=== PATIENT | female | born 1980 | race Caucasian/White ===

== ENCOUNTER 2018-04-14 18:35 | Inpatient (IN) | payer OTHER ==
[~2018-04-14] VITALS: Ht 162.6 cm; Wt 75.7 kg
[2018-04-14 18:35] VITALS: BP 148/75
[~2018-04-14 18:35] MED LIST: FLUO40CA6 PO; KEP500 PO; LORA-476 PO; PRAV40TA1 PO
--- NOTE | 2018-04-14 18:35 | NUR ---
PATIENT BIBA. PT IS CHRONCHI TRACH TO VENT. PLACED PATIENT ON SAME SETTINGS. SETTINGS CHARTED. PT IS TRACHED WITH PORTEX 7. TRACH IS IN PLACE AND SECURED. PT HR IS ELEVATED 168 SPO2 97%.. NO SOB OR DISTRESS NOTED. VENT CONNECTED TO RED OUTLET. ALARMS AUDIBLE. WILL CONTINUE TO MONITOR.
--- NOTE | 2018-04-14 19:06 | NUR ---
BIB [place] [facility] [place] PT WAS HAVING SOB [place] [facility] HX CEREBRAL PALSY ANC LEFT SIDE CVA. PT IS A&OX4. EYES OPEN AND CAN VERBALLY COMMUNICATED NEEDS WITH LIMITATION. PT TACHY UPON 19:06 ED EVALUATION. PT CAME ON VENT. NURSING AND RESPIRATORY AT BEDSIDE. ER MD AWARE. CONTINUE TO MONITOR.
[2018-04-14] MEDS ORDERED: ACETAMINOPHEN 160 MG/5 ML UDC ONE (19:44)
[2018-04-14] MEDS ORDERED: ACETAMINOPHEN 650 MG SUPP RC ONE ×2 (20:09→21:25)
--- NOTE | 2018-04-14 21:09 | NUR ---
ABG DONE WITH NO INCIDENT. RESULTS GIVEN TO MD LOPEZ.
[2018-04-14 21:16] LABS: ANION GAP 12.1 (8-16); POTASSIUM 4.1 mmol/L (3.5-5.1)
[2018-04-14 21:17] LABS: TOTAL BILIRUBIN 0.3 mg/dL (0.0-1.0)
[2018-04-14 21:48] LABS: BASOPHILS % (AUTO) 0.2 % (0.0-2.0); HEMOGLOBIN 12.4 g/dL (12.0-16.0); LYMPHOCYTES # (AUTO) 1.3 K/uL (2.5-16.5); LYMPHOCYTES % (AUTO) 7.8 % (20.5-51.1); MEAN CORPUSCULAR HEMOGLOBIN 26 pg (27-31); MEAN CORPUSCULAR HGB CONC 32 g/dL (33-37); MONOCYTES # (AUTO) 1.4 K/uL (0.8-1.0); MONOCYTES % (AUTO) 8.9 % (1.7-9.3); NEUTROPHILS # (AUTO) 13.5 K/uL (1.8-7.7); NEUTROPHILS % (AUTO) 83.1 % (42.2-75.2); PLATELET COUNT (AUTO) 389 K/uL (140-450); RED BLOOD CELL COUNT(AUTO) 4.75 MIL/uL (4.20-5.40); RED CELL DISTRIBUTION WIDTH 15.8 % (11.6-13.7); WHITE BLOOD COUNT (AUTO) 16.3 K/uL (4.8-10.8)
[2018-04-14] MEDS ORDERED: NACL 0.9% 1,000 ML IV ONE (21:55)
[2018-04-14 21:58] LABS: PROTHROMBIN TIME 11.6 secs (10.8-13.4)
[2018-04-14] MEDS ORDERED: KEP500 PO (22:00)
[2018-04-14] MEDS ORDERED: TRAM50TA1 PO (22:00)
[2018-04-14] MEDS ORDERED: POTA10TE30 GT (22:00)
[2018-04-14] MEDS ORDERED: TYL650S RC (22:00)
[2018-04-14] MEDS ORDERED: OSC500 GT (22:00)
[2018-04-14] MEDS ORDERED: ACET-2619 PO (22:00)
[2018-04-14] MEDS ORDERED: ASCO500T45 PO (22:00)
[2018-04-14] MEDS ORDERED: FAMO-90 GT (22:00)
[2018-04-14] MEDS ORDERED: HYDR-5122 GT (22:00)
[2018-04-14] MEDS ORDERED: SACC250C10 PO (22:00)
[2018-04-14] MEDS ORDERED: DEXT1LOZ MM (22:00)
--- NOTE | 2018-04-14 22:16 | NUR ---
PATIENT HARD STICK, ATTEMPTS. PATIENT UNABLE TO PROVIDE URINE, STRAIGHT CATH ATTEMPTED, NO URINE COLLECTED.
--- NOTE | 2018-04-14 22:40 | NUR ---
SPUTUM SAMPLE COLLECTED AND SENT TO LAB.
--- NOTE | 2018-04-14 22:45 | NUR ---
VENT CHECK. NO SOB OR DISTRESS NOTED. PT ASKED FOR SUCTIONING. SXN'D PT. WILL CONTINUE TO MONITOR.
--- NOTE | 2018-04-14 23:10 | NUR ---
PICTURES TAKEN OF ANUS/RECTUM. AROUND RECTUM PIN-POINT OPEN AREAS WITH SCANT CONTROLLED BLEEDING. AREA BLANCHABLE. PAINFUL WHEN CLEANED. VSS. ER MD. AWARE. CONTINUE TO MONITOR.
[2018-04-14 23:48] LABS: APPEARANCE,URINE CLOUDY (CLEAR); COLOR,URINE YELLOW (YELLOW); UGLUCOSE NEGATIVE (NEGATIVE)
[2018-04-14 23:49] LABS: BILIRUBIN,URINE NEGATIVE (NEGATIVE); BLOOD, URINE 1+ (NEGATIVE); LEUKOCYTE ESTERASE ,URINE 3+ (NEGATIVE); NITRITE, URINE POSITIVE (NEGATIVE)
[2018-04-14 23:51] LABS: RBC,URINE 11-20 (MOD) /HPF (0-5); WBC,URINE TOO MANY TO COUNT /HPF (0-5)
[2018-04-15] MEDS ORDERED: MORPHINE SULFATE 4 MG/ML SYR IVP ONE (00:05)
[2018-04-15] MEDS ORDERED: NACL 0.9% 1,000 ML IV ONE (00:30)
[2018-04-15] MEDS ORDERED: MEROPENEM 1,000 MG in NACL 0.9% 100 ML IV ONE (00:30)
[2018-04-15] MEDS: NACL 0.9% 1,000 ML IV SCH ×2 (00:33→13:53)
[2018-04-15] MEDS ORDERED: ONDANSETRON 4 MG/2 ML VIAL IVP PRN (00:35)
[2018-04-15] MEDS ORDERED: ALBUTEROL 0.083% 2.5 MG/3 ML NEBU INH PRN (00:35)
[2018-04-15] MEDS ORDERED: ACETAMINOPHEN 325 MG TAB PO PRN (00:35)
[2018-04-15] MEDS ORDERED: BENZOCAINE/MENTHOL 1 LOZ MM PRN (00:40)
--- NOTE | 2018-04-15 00:58 | NUR ---
RN CALLED RT TO SUCTION PATIENT. PT IS CLEAR. PEAK PRESSURE GOES OFF BECAUSE PATIENT IS SHAKING. RN AWARE OF PATIENT SHAKING. NO SOB OR DISTRESS NOTED. SPO2 98-100%. DECREASED FIO2 TO 28%. WILL CONTINUE TO MONITOR.
[2018-04-15] MEDS ORDERED: MEROPENEM 1,000 MG VIAL IV ONE (00:59)
[2018-04-15] MEDS: ALBUTEROL 0.083% 2.5 MG/3 ML NEBU INH SCH ×4 (01:00→19:09)
[2018-04-15] MEDS: IPRATROPIUM 0.02% 0.5 MG/2.5 ML NEBU INH SCH ×4 (01:00→19:09)
--- NOTE | 2018-04-15 01:15 | NUR ---
Pt report given to ZEHRA RASHEED. Transfer of care at this time.
--- NOTE | 2018-04-15 01:30 | NUR ---
TRANSFERRED PT FROM ER TO TELE WITH HELP OF RT LARIOS WITH NO INCIDENT. TRACH IS IN PLACE AND SECURED. VENT IS CONNECTED TO RED OUTLET. ALARMS AUDIBLE. AMBU BAG AT BEDSIDE. WILL CONTINUE TO MONITOR.
--- NOTE | 2018-04-15 01:52 | NUR ---
HHN TX NOT GIVEN BECAUSE PT HR IS 162. RN AWARE. PT ON CONTINUOS PULSE OX. WILL CONTINUE TO MONITOR.
--- NOTE | 2018-04-15 02:00 | NUR ---
PT TRANSFERRED TO BED B ROOM 122. REPORT GIVEN BY ER NURSE. PT NOSE SWABBED FOR MRSA, V/S FOLLOWS T 103 P 57 R 18 B/P 02 99 WITH ALL VENT SETTINGS. PT GIVEN TYLENOL FOR INCREASED TEMP. MORPHINE WAS DRAWN UP B/C PT C/O OF GENERALIZED PAIN. ORDERED MORPHINE DRAWN UP. EMAR WAS RECHECKED BEFORE ADMINISTRATION. PT HAD MORPHINE AROUND 0000. MORPHINE HELD. MORPHINE WASTED SUMMER P. RN NIGHTSHIFT NURSE WITNESSED MORPHINE BEING WASTED. GT SITE ATTEMPTED FLUSH AND WAS CLOGGED. GT SITE WAS NOTED LEAKING DR BURGESS ENGRAVER [employer] WAS CALLED DUE TO PT HEART RATE AND CLOGGED GT SITE.
[2018-04-15] MEDS: MORPHINE SULFATE 4 MG/ML SYR IVP PRN ×2 (02:03→15:44)
[2018-04-15] MEDS: ACETAMINOPHEN 325 MG TAB GT PRN ×3 (02:10→20:50)
[2018-04-15] MEDS ORDERED: DILTIAZEM 25 MG/5 ML VIAL IVP PRN (02:30)
--- NOTE | 2018-04-15 02:30 | NUR ---
HR IN 160'S BP 145/61, TEMP 103 F R/T STATED HR HAS BEEN IN THE 160'S FOR 8 HOURS. ATTEMPTED TO GIVE ACETAMINOPHEN VIA G-TUBE, RN ZEHRA STATED G-TUBE STOMA IS LEAKING WATER WHEN MEDICATION IS BEING ADMINISTERED, CALLED DR BARLOW, CALL BACK FROM DR BURGESS, ORDERS FOR CARDIZEM 20 MG IVP Q4H PRN FOR HR ABOVE 100, ATIVAN 1 MG Q8H FOR ANXIETY, AND CT SCAN OF THE ABDOMEN BECAUSE G-TUBE IS LEAKING. WILL PUT IN ORDERS, CALLED PHARMACY TO VERIFY MEDICATIONS. CALLED SAS ANALYST TO ADMINISTER CARDIZEM DUE TO DOSE 20 MG. CHARGE NURSE ZEHRA MACEDO.
[2018-04-15] MEDS ORDERED: DILTIAZEM 25 MG/5 ML VIAL IVP ONE (02:45)
--- NOTE | 2018-04-15 02:45 | NUR ---
CARDIZEM WAS GIVEN BY SERVICE LOSS CONTROL CONSULTANT AT THIS TIME.
--- NOTE | 2018-04-15 03:35 | NUR ---
TOOK PT TO CT SCAN WITH RT RIC AND KATHYA SHAHID WITH NO INCIDENT. PT BACK ON VENT. NO SOB OR DISTRESS NOTED. VENT CHECK DONE. WILL CONTINUE TO MONITOR.
--- NOTE | 2018-04-15 03:45 | NUR ---
RETURNED BACK FROM CT SCAN PT TRANSFERRED BACK TO BED B RM 122 BY RT AND RN. HOB UP 45% ALL FALLS AND ASPIRATIONS PRECAUTIONS IN PLACE. V/S RETAKEN T 100.2 P 154 R 16 B/P 133/63 02 99% ON VENT SETTINGS.
[2018-04-15] MEDS: MEROPENEM 1,000 MG in NACL 0.9% 100 ML IV SCH ×3 (05:00→20:51)
[2018-04-15 05:33] VITALS: BP 141/66
--- NOTE | 2018-04-15 06:00 | NUR ---
MERREM ORDERED AND HUNG ORDERED RATE OF 200MLS/HR.
[2018-04-15] MEDS ORDERED: MEROPENEM 500 MG VIAL IV ONE (06:36)
--- NOTE | 2018-04-15 06:52 | NUR ---
RECEIVED PT ON DOCUMENTED SETTINGS, ALARMS ARE ON AND AUDIBLE, PTS TRACH PORTEX 7 IS SECURE, BS RHONCI SX SMALL WHITE HHN GVIEN I\L WITH 2.5MG ALBUTEROL AND 0.5 MG ATROVENT NO SOB NOTED, VENT PLUGGED INTO RED OUTLET, BMV HOB, CONT. POX IN PLACE
--- NOTE | 2018-04-15 07:30 | NUR ---
REPORT GIVEN TO CORI RASHEED DAYSHIFT NURSE, FOR CONTINUITY OF CARE, PT IN STABLE CONDITION.
--- NOTE | 2018-04-15 07:31 | NUR ---
REPORT RECEIVED FROM OXIDATION ENGINEER NURSE, PT SLEEPING QUIETLY IN NAD, RESP EVEN UNLABORED TRACH TO VENT, APPEARS IN NO PAIN, SKIN WARM DRY COLOR WNL, POC REVIEWED, ALL SAFETY MEASURES IN PLACE, WILL CONTINUE TO MONITOR.
--- NOTE | 2018-04-15 07:58 | NUR ---
PATIENT HAS BEEN SCREENED AND CATEGORIZED HIGH NUTRITION RISK. PATIENT WILL BE SEEN WITHIN 1-2 DAYS OF ADMISSION. 04/15/18-04/16/[address]
[2018-04-15 08:00] VITALS: BP 113/55
[2018-04-15] MEDS: LACTOBACILLUS RHAMNOSUS GG 1 EACH CAP PO SCH ×3 (08:45→17:28)
[2018-04-15] MEDS: levETIRAcetam 500 MG TAB GT SCH ×2 (08:45→20:49)
[2018-04-15] MEDS: FAMOTIDINE 20 MG TAB GT SCH ×2 (08:45→20:50)
[2018-04-15] MEDS: CALCIUM CARBONATE 500 MG TAB GT SCH ×2 (08:45→20:50)
[2018-04-15] MEDS ORDERED: ASCORBIC ACID 500 MG TAB GT SCH (09:00)
[2018-04-15] MEDS ORDERED: POTASSIUM CHLORIDE 10 MEQ TABER PO SCH (09:00)
[2018-04-15] MEDS ORDERED: ENOXAPARIN 40 MG/0.4 ML SYR SUBQ SCH (09:00)
--- NOTE | 2018-04-15 09:05 | NUR ---
GT AREA WITH REDNESS, SMALL LEAKING, CLEANED WITH NS, PAT DRY, GT GAUZE PLACED, GT FLUSHES WELL, RESIDUAL 10ML, AM MEDS GIVEN, PT DAGOBERTO WELL, PERICARE DONE, PADS CHANGED, WILL CONTINUE TO MONITOR.
--- NOTE | 2018-04-15 10:35 | NUR ---
BED BATH GIVEN, PERICARE DONE, POSITION CHANGED, PT DAGOBERTO WELL, LARGE BUMP NOTED ON LEFT UPPER ARM, PT C/O PAIN, PT HOLDING LEFT ARM, WILL NOTIFY MD, PT'S MOTHER AT BEDSIDE.
[2018-04-15 12:00] VITALS: BP 114/61
--- NOTE | 2018-04-15 12:15 | NUR ---
24G PIV NOT FLUSHING WELL, SITE SLIGHTLY SWALLEN PT C/O PAIN, NEW IV STARTED TO RIGHT HAND, PT DAGOBERTO WELL, IV ANTIBIOTIC STARTED, PER ORDER, PT FEELS HOT TO TOUCH, TEMP 100.8 AXILA, WILL GIVE TYLENOL
--- NOTE | 2018-04-15 12:32 | NUR ---
TYLENOL GIVEN FOR FEVER 100.8
--- NOTE | 2018-04-15 12:47 | NUR ---
04/15/18 RD INITIAL ASSESSMENT COMPLETED PLEASE REFER TO NUTRITION ASSESSMENT UNDER CARE ACTIVITY FOR ESTIMATED NUTRITIONAL NEEDS. 1. CONTINUE NPO UNTIL MEDICALLY APPROPRIATE TO BEGIN NUTRITION 2. WHEN/IF PATIENT MEDICALLY STABLE TO BEGIN NUTRITION, RECOMMEND ADVANCE DIET TO VITAL AF 1.2 @ 45 ML/HR - THIS WILL PROVIDE 1296 KCALS (100% ESTIMATED ENERGY NEEDS), AND 81 G PROTEIN (99% ESTIMATED PROTEIN NEEDS). 3. RECOMMEND FLUSH [address] TO FOLLOW-UP 2-3 DAYS, HIGH RISK JUNI LANDRY RD
--- NOTE | 2018-04-15 12:53 | NUR ---
DR BURGESS AT BEDSIDE.
[2018-04-15] MEDS ORDERED: Z-GUARD PASTE TP PRN (13:15)
--- NOTE | 2018-04-15 13:55 | NUR ---
Supervisor Records Change Note: Miguel Rodríguez from [facility] , patient is on a 7 day bed hold and her brother Vargas Redman is patient's health care decision maker.
--- NOTE | 2018-04-15 14:08 | NUR ---
PT RESTING QUIETLY IN NAD, RESP EVEN UNLABORED, FEVER DOWN, 99.0.
--- NOTE | 2018-04-15 15:44 | NUR ---
PT C/O GENERALIZED BODY PAIN, MORPHINE GIVEN, GT FEED STARTED.
[2018-04-15 16:00] VITALS: BP 117/68
[2018-04-15] MEDS ORDERED: VANCOMYCIN PER PHARMACY MC PRN (16:25)
[2018-04-15] MEDS ORDERED: DEXTROSE 50% 50 ML SYR IVP PRN (16:55)
--- NOTE | 2018-04-15 17:25 | NUR ---
DR CONKLIN AT BEDSIDE.
[2018-04-15] MEDS: VANCOMYCIN 1GM/DEXT 5% PREMIX 200 ML IV SCH (17:31)
--- NOTE | 2018-04-15 18:10 | NUR ---
FLU SWAB SENT
--- NOTE | 2018-04-15 19:11 | NUR ---
PER LAB BLOOD CULTURE POSITIVE FOR GRAM NEGATIVE RODS, DR GARCIA PATTERN ILLUSTRATOR FOR DR BURGESS PAGED AT THIS TIME.
[2018-04-15] MEDS ORDERED: diphenhydrAMINE 50 MG/ML VIAL IVP ONE (19:25)
--- NOTE | 2018-04-15 19:25 | NUR ---
PT WITH RED FACE AND C/O ITCHING, ALSO C/O FEELING ANXIOUS, RT AT BEDSIDE FOR NEB TREATMENT.
--- NOTE | 2018-04-15 19:30 | NUR ---
DR GARCIA CALLED BACK, REPORTED BLOOD CULTURE RESULT, ALSO NOTIFIED OF RED FACE AND ITCHING 2HRS AFTER VANCO DOSE, ORDER FOR BENADRYL RECIEVED
[2018-04-15] MEDS: LORazepam 2 MG/ML VIAL IVP PRN (19:38)
[2018-04-15] MEDS ORDERED: diphenhydrAMINE 50 MG/ML VIAL ONE (19:40)
--- NOTE | 2018-04-15 19:43 | NUR ---
BENADRYL GIVEN PER ORDER. Addendum: 04/15/18 at 1947 by Adenike Rogers RN BENADRYL 25MG IVP GIVEN AT THIS TIME
--- NOTE | 2018-04-15 19:47 | NUR ---
REPORT GIVEN TO SUSTAINMENT LOGISTICS ANALYST NURSE.
--- NOTE | 2018-04-15 19:50 | NUR ---
RECEIVED PT FROM TERRENCE RN PT HOB 30 DEGREE TRACH TO VENT DEPENDENT FIO2 28% TV 450 RESP RATE 16 PEEP 5 NOT SOB NOTED RESP THERAPY AT BED SIDE ASSISTING THE PTIV ON RT HAND INFUSING WELL, G TUBE 15 ML RESIDUAL REDNESS AROUND G TUBE INSERTION, PT REPOSITIONED INITIAL ASSESSMENT DONE
[2018-04-15 20:00] VITALS: BP 110/70
--- NOTE | 2018-04-15 20:00 | NUR ---
PT HAS FEWVER COOL MEASURES APPLY AND TYLENOL GIVEN ORDER PT WILL BE MONITORING
[2018-04-15] MEDS: ENOXAPARIN 100 MG/ML SYR SUBQ SCH (20:52)
[2018-04-15] MEDS: BLOOD GLUCOSE MONITORING 1 DEV DEV FS SCH (21:20)
[2018-04-15] MEDS: INSULIN LISPRO SLIDING SCALE 100 UNITS/ML VIAL SUBQ PRN (21:21)
--- NOTE | 2018-04-15 21:30 | NUR ---
BLOOD SUGAR TEST 178 COVERAGE WITH 2 UNITS HUMALOG SUBQ FOLLOWING PROTOCOL
[2018-04-16] VITALS: BP 114/73
--- NOTE | 2018-04-16 | NUR ---
PT HOB 30 DEGREE ORAL CARE GIVEN WITH VAP KIT NOT DISTESS NOTED NOT FEVER NOTED REPOSITIONED Q2H
[2018-04-16] MEDS: IPRATROPIUM 0.02% 0.5 MG/2.5 ML NEBU INH SCH ×4 (01:31→19:18)
[2018-04-16] MEDS: ALBUTEROL 0.083% 2.5 MG/3 ML NEBU INH SCH ×4 (01:31→19:18)
--- NOTE | 2018-04-16 02:55 | NUR ---
PT HAS BEEN MONITORING CLOSE ST ON CARDIAC M;NITORING NOT DISTRESS NOTED NOT FEVER NOTED
[2018-04-16] MEDS: NACL 0.9% 1,000 ML IV SCH ×2 (03:13→11:53)
[2018-04-16] MEDS: LORazepam 2 MG/ML VIAL IVP PRN (03:33)
[2018-04-16 04:00] VITALS: BP 121/62
--- NOTE | 2018-04-16 04:00 | NUR ---
SPONGE BATH GIVEN LINEN CHANGED HOB [address] TRACH TO VENT REMAIN SAME SETTING NOT SOB NOTED
[2018-04-16] MEDS: VANCOMYCIN 1GM/DEXT 5% PREMIX 200 ML IV SCH ×2 (04:59→17:46)
[2018-04-16] MEDS: MEROPENEM 1,000 MG in NACL 0.9% 100 ML IV SCH ×3 (05:00→20:17)
[2018-04-16] MEDS: BLOOD GLUCOSE MONITORING 1 DEV DEV FS SCH ×4 (05:53→20:38)
[2018-04-16] MEDS: INSULIN LISPRO SLIDING SCALE 100 UNITS/ML VIAL SUBQ PRN ×4 (05:58→20:24)
--- NOTE | 2018-04-16 06:00 | NUR ---
BLOOD SUGAR TEST 215 COVERAGE WITH 4 UNITS HUMALOG SUBQ FOLLOW PROTOCOL
[2018-04-16 06:20] LABS: BASOPHILS % (AUTO) 0.3 % (0.0-2.0); EOSINOPHILS # (AUTO) 0.1 K/uL (0-0.4); EOSINOPHILS % (AUTO) 0.9 % (0.0-4.0); HEMATOCRIT 28.8 % (36-48); HEMOGLOBIN 9.4 g/dL (12.0-16.0); LYMPHOCYTES # (AUTO) 1.1 K/uL (2.5-16.5); LYMPHOCYTES % (AUTO) 11.4 % (20.5-51.1); MEAN CORPUSCULAR HEMOGLOBIN 26 pg (27-31); MEAN CORPUSCULAR HGB CONC 33 g/dL (33-37); MEAN CORPUSCULAR VOLUME 80.6 fL (80-94); MONOCYTES % (AUTO) 10.6 % (1.7-9.3); NEUTROPHILS # (AUTO) 7.3 K/uL (1.8-7.7); NEUTROPHILS % (AUTO) 76.8 % (42.2-75.2); PLATELET COUNT (AUTO) 265 K/uL (140-450); RED BLOOD CELL COUNT(AUTO) 3.57 MIL/uL (4.20-5.40); RED CELL DISTRIBUTION WIDTH 15.7 % (11.6-13.7); WHITE BLOOD COUNT (AUTO) 9.5 K/uL (4.8-10.8)
[2018-04-16 06:51] LABS: ALBUMIN 2.1 g/dL (3.4-5.0); ANION GAP 12.7 (8-16); CARBON DIOXIDE 21.1 mmol/L (21-32); CREATININE 0.8 mg/dL (0.6-1.3); TOTAL BILIRUBIN 0.3 mg/dL (0.0-1.0)
[2018-04-16 06:53] LABS: POTASSIUM 2.8 mmol/L (3.5-5.1)
--- NOTE | 2018-04-16 07:32 | NUR ---
RECEIVED BEDSIDE REPORT FROM OPHTHALMIC MEDICAL ASSISTANT RN. PT IN STABLE CONDITION. APHASIC BUT MOUTHS NEEDS. ABLE TO FOLLOW COMMANDS. HOB 30 DEGREE, CHRONIC TRACH TO VENT. VENT SETTINGS FIO2 28%, VT 450, RESP RATE 16, PEEP 5 CM H2O, FLOW 35 L/MIN. RESPIRATIONS EVEN AND UNLABORED. DENIES PAIN AND DISCOMFORT. EXCORIATION AROUND RECTUM. REDNESS UNDER BILATERAL BREASTS. SKIN OTHERWISE INTACT. BILATERAL FOOT DROP, PILLOWS PLACE UNDER BILATERAL FEET. G-TUBE IN PLACE, RUNNING VITAL AF 1.2 CONTINUOUS AT 45 ML/HR. GASTRIC RESIDUAL 20 ML. PT IS INCONTINENT. IV SITE PATENT AND ASYMPTOMATIC, INFUSING IVF PER MD ORDERS. FALL, ASPIRATION, SEIZURE PRECAUTIONS IN PLACE. ALL OTHER PRECAUTIONS IN PLACE, WILL CONTINUE TO MONITOR.
--- NOTE | 2018-04-16 07:43 | NUR ---
DR BURGESS CALLED BACK FOR CRITICAL MICHAEL K=2.8 AND ORDERS TO FOLLOW
[2018-04-16] MEDS ORDERED: ACETAMINOPHEN 650 MG/20.3 ML UDC GT PRN (07:46)
--- NOTE | 2018-04-16 07:55 | NUR ---
RECEIVED ON A GE CARESCAPE R860 VENTILATOR PLUGGED INOT RED OUTLET TOLERATING WELL WITHOUT ADVERSE REACTIONS NOTED TO A PORTEX DCT #7 AIRWAY SECURED WITH A VARUN TRACH TIE CUFF PRESSURE CHECKED NOTED MAIMO RADICAL-7 CONTINUOUS PULSE OXIMETER AT [facility] ON AND FUNCTIONING WELL LOW SATURATION ALARM SET AT 92% LOC QUIET EASILY AWAKENS BREATH SOUNDS RHONCHI BILATERAL WITH GOOD CHEST RISE DEEP TRACHEAL SUCTION FOR MODERATE THICK YELLOW SECRETIONS AIRWAY PATENT
[2018-04-16 08:00] VITALS: BP 104/54
[2018-04-16] MEDS ORDERED: POTASSIUM CHLORIDE 20% 40 MEQ/15 ML UDC GT SCH (08:00)
--- NOTE | 2018-04-16 08:42 | NUR ---
RESTING COMFORTABLY NO INDICATION OF PULMONARY DISTRESS AT THIS TIME GOOD CHEST RISE
[2018-04-16] MEDS: POTASSIUM CHLORIDE 20% 40 MEQ/15 ML UDC GT SCH (09:18)
[2018-04-16] MEDS: ASCORBIC ACID 500 MG/5 ML ORASYR GT SCH (09:18)
[2018-04-16] MEDS: ENOXAPARIN 100 MG/ML SYR SUBQ SCH ×2 (09:26→20:21)
[2018-04-16] MEDS: levETIRAcetam 100 MG/ML ORASYR GT SCH ×2 (09:27→20:16)
[2018-04-16] MEDS: FAMOTIDINE 20 MG TAB GT SCH ×2 (09:28→20:16)
[2018-04-16] MEDS: CALCIUM CARBONATE 500 MG TAB GT SCH ×2 (09:28→20:16)
[2018-04-16] MEDS: LACTOBACILLUS RHAMNOSUS GG 1 EACH CAP PO SCH (09:28)
--- NOTE | 2018-04-16 09:36 | NUR ---
HEAD SAWYER AUTOMATIC GRACE HAS SEEN PT AND PERFORMED WOUND CARE. SCHEDULED MEDICATIONS ADMINISTERED PER MD ORDERS. PT IN STABLE CONDITION, NO C/O PAIN OR DISCOMFORT.
--- NOTE | 2018-04-16 10:00 | NUR ---
WOUND CARE EVALUATION NOTE: REASON FOR EVALUATION: LOW LISA SCALE SKIN ASSESSMENT DONE WITH PRIMARY RN AT 9:30 AM WITH THIS 37Y/O FEMALE PT ADMITTED TO [facility] WITH INITIAL DX OF SOB. PAST MEDICAL HX INCLUDES CRF ON TRACH TO VENT, CHRONIC GT, AND HX OF CVA . ALL ABOVE INFORMATION OBTAINED FROM ADMISSION H&P. PT IS AWAKE. HAS GOOD EYE CONTACT. SKIN IS WARM AND DRY, BLE GOOD HAIR GROWTH, BILATERAL DORSAL PEDAL PULSES PRESENT AND NORMAL. CAPILLARY REFILLED < 2 SEC. X 10 TOES. INCONTINENT OF BOWEL AND BLADDER. PLAN OF CARE DISCUSSED WITH PRIMARY RN AND PT. INTEGUMENTARY: -TRACH SITE LINDA STOMA SKIN DRY AND CLEAN. SKIN INTACT. - GT SITE LINDA STOMA SKIN DRY AND CLEAN. SKIN INTACT. -INTERTRIGO TO BREAST FOLDS REDNESS -INCONTINENT ASSOCIATE DERMATITIS (IAD) TO: B/L GROINS EXTENDED TO PERINEUM -IAD TO RIGHT AND LEFT INNER BUTTOCKS EXTENDED TO PERIANAL MULTIPLE SMALL PARTIAL THICKNESS SKIN EROSIONS TO PERIANAL, WOUND BED IS PINK, CLEAN AND MOIST. NO ODOR. -OLD HEALED SCAR TO SACROCOCCYX RECOMMENDATIONS: -KEEP SKIN DRY AND CLEAN AT ALL TIMES, PLEASE CHECK Q2H AND PRN FOR INCONTINENCY OF BOWEL AND BLADDER. -APPLY INTER DRY CLOTH TO BREASTS FOLDS INTERTRIGO Q7 DAYS AND PRN IF SOILING -APPLY Z-GUARD TO: B/L GROINS EXTENDED TO PERINEUM AND RIGHT AND LEFT INNER BUTTOCKS EXTENDED TO PERIANAL BID AND PRN IF SOILING -APPLY HEEL RAISER TO RIGHT HEEL AT ALL TIMES -OFFLOAD BILATERAL HEELS BY PLACING PILLOWS UNDER CALVES UNLESS OTHERWISE CONTRAINDICATED -PRESSURE REDISTRIBUTION SURFACE THERAPY -TURN AND REPOSITION Q2H, OFFLOAD SACRALCOCCYX BY TURNING RIGHT AND LEFT -CONTINUE TO FOLLOW RD RECOMMENDATIONS ALL ABOVE RECOMMENDATIONS DISCUSSED WITH PRIMARY RN WILL FOLLOW UP PT Q7-10 DAYS. PLEASE CONTACT WOUND CARE NURSE FOR ANY QUESTION AND CHANGE OF WOUND CONDITION.
--- NOTE | 2018-04-16 11:32 | NUR ---
GOOD CHEST RISE DEEP TRACHEAL SUCTION FOR LARGE THICK YELLOW SECRETIONS AIRWAY PATENT
[2018-04-16 12:00] VITALS: BP 111/56
[2018-04-16] MEDS ORDERED: INTERDRY CLOTH TP SCH (12:50)
[2018-04-16] MEDS ORDERED: Z-GUARD PASTE TP PRN (12:55)
--- NOTE | 2018-04-16 13:37 | NUR ---
ADMINISTERED TYLENOL PER PT C/O HEADACHE.
--- NOTE | 2018-04-16 13:57 | NUR ---
EDUCATIONAL ADMINISTRATION TEACHER AT BEDSIDE FOR PATIENT PHYSICAL HYGIENE AND REPOSITION SURFACE SHIP USW SUPERVISOR TO ATTEMPT HHN THERAPY PATIENT AND VENTILATOR ASSESSMENT AT A LATER TIME
--- NOTE | 2018-04-16 15:47 | NUR ---
NO SOB NOTED AT THIS TIME GOOD CHEST RISE
[2018-04-16 16:00] VITALS: BP 103/64
--- NOTE | 2018-04-16 16:12 | NUR ---
PT RESTING IN BED, AROUSABLE BY VOICE. NO C/O PAIN OR DISCOMFORT. WILL CONTINUE TO MONITOR.
--- NOTE | 2018-04-16 17:38 | NUR ---
NO APPARENT RESPIRATORY DISTRESS NOTED DEEP TRACHEAL SUCTION FOR MODERATE THIN TO FROTHY WHITE SECRETIONS AIRWAY PATENT
--- NOTE | 2018-04-16 18:00 | NUR ---
NEW FEEDING FORMULA HUNG. GASTRIC RESIDUAL LESS THAN 30 ML.
--- NOTE | 2018-04-16 19:13 | NUR ---
ENDORSED POC TO DEVELOPMENT AND PLANNING ENGINEER RN. PT IN STABLE CONDITION.
--- NOTE | 2018-04-16 19:33 | NUR ---
REPORT RECEIVED FROM VASHTI SNOW PATIENT IS AWAKE, ALERT, RESPIRATION EVEN UNLABORED TRACH TO VENT. NO DISTRESS NOTED. IV IS PATENT AND INTACT. G-TUBE FEEDING IS NOTED. PLAN OF CARE REVIEWED AND DISCUSSED. ALL SAFETY MEASURES IN PLACE. BED IS IN LOW POSITION. CALL LIGHT WITHIN REACH.
[2018-04-16 20:00] VITALS: BP 98/66
--- NOTE | 2018-04-16 20:00 | NUR ---
PATIENT IS AWAKE, ALERT, RESPIRATION EVEN UNLABORED TRACH TO VENT. DENIES PAIN. INITIAL ASSESSMENT IS DONE. VITAL SIGNS WITHIN THE NORMAL RANGE. BED IS IN LOW POSITION. CALL LIGHT WITHIN REACH.
--- NOTE | 2018-04-16 20:45 | NUR ---
MEDS WERE GIVEN PER ORDER. 1CC RESIDUAL FROM G-TUBE NOTED. WILL CONTINUE TO MONITOR.
--- NOTE | 2018-04-16 22:20 | NUR ---
PATIENT IV INFILTRATED D/C. NO ACTIVE BLEEDING SEEN. INSERTED NEW IV SITE AND TOLERATED WELL. WILL CONTINUE TO MONITOR.
--- NOTE | 2018-04-16 22:40 | NUR ---
PATIENT COMPLAINED OF PAIN 10/10. PRN PAIN MEDS WERE GIVEN. WILL CONTINUE TO MONITOR.
[2018-04-16] MEDS: MORPHINE SULFATE 4 MG/ML SYR IVP PRN (22:44)
[2018-04-17] VITALS: BP 120/72
--- NOTE | 2018-04-17 | NUR ---
PATIENT IS SLEEPING COMFORTABLY. RESPIRATION EVEN UNLABORED ON TRACH TO VENT. NO DISTRESS NOTED. WILL CONTINUE TO MONITOR.
[2018-04-17] MEDS: IPRATROPIUM 0.02% 0.5 MG/2.5 ML NEBU INH SCH ×4 (00:52→19:21)
[2018-04-17] MEDS: ALBUTEROL 0.083% 2.5 MG/3 ML NEBU INH SCH ×4 (00:52→19:21)
[2018-04-17] MEDS: MORPHINE SULFATE 2 MG/ML SYR IVP PRN (03:33)
[2018-04-17 04:00] VITALS: BP 120/75
[2018-04-17] MEDS: MEROPENEM 1,000 MG in NACL 0.9% 100 ML IV SCH ×2 (04:22→12:37)
[2018-04-17 04:47] LABS: ALBUMIN 2.1 g/dL (3.4-5.0); ANION GAP 12.5 (8-16); CARBON DIOXIDE 21.6 mmol/L (21-32); CREATININE 0.6 mg/dL (0.6-1.3); POTASSIUM 3.1 mmol/L (3.5-5.1); TOTAL BILIRUBIN 0.2 mg/dL (0.0-1.0)
[2018-04-17] MEDS: VANCOMYCIN 1GM/DEXT 5% PREMIX 200 ML IV SCH (05:00)
--- NOTE | 2018-04-17 05:07 | NUR ---
RECEIVED CALL FROM LAB REGARDING VANCO TROUGH RESULT 21.7. CALLED PHARMACY SPOKE TO LANDON REGARDING VANCO TROUGH I WAS TOLD TO HOLD IT FOR NOW.
[2018-04-17] MEDS: LORazepam 2 MG/ML VIAL IVP PRN (05:40)
[2018-04-17] MEDS: INSULIN LISPRO SLIDING SCALE 100 UNITS/ML VIAL SUBQ PRN ×3 (05:47→20:57)
[2018-04-17] MEDS: BLOOD GLUCOSE MONITORING 1 DEV DEV FS SCH ×4 (05:47→20:54)
--- NOTE | 2018-04-17 07:17 | NUR ---
ENDORSED PATIENT TO MELL LEWIS NURSE FOR CONTINUITY OF CARE. PATIENT IS STABLE AT THIS TIME
--- NOTE | 2018-04-17 07:25 | NUR ---
RECEIVED PATIENT TRACH PORTEX 7 TO VENT ON SETTINGS AC 16, 450, +5, 28%. AIRWAY SECURE AND PATENT. VENT CHECK DONE. VENT ALARMS ON AND FUNCTIONING. CONTINUOUS PULSE OX ON AND ALARMS FUNCTIONING. VENT PLUGGED INTO RED OUTLET. AMBU BAG AT BEDSIDE. SCHEDULED BREATHING TREATMENTS ADMINISTERED. TOLERATED TREATMENTS WELL, NO ADVERSE SIDE EFFECTS. SUCTIONED SMALL AMOUNT OF THICK, WHITE SECRETIONS. NO RESPIRATORY DISTRESS NOTED AT THIS TIME. WILL CONTINUE TO MONITOR.
--- NOTE | 2018-04-17 07:30 | NUR ---
RECEIVED PT REPORT FROM TILE DESIGNER NURSE. PT IS AAOX3, TRACH TO VENT, FIO2 28%. NO S/S OF DISTRESS NOTED. IV CATH NOTED TO RIGHT FA 24G, SEEMS INFILTRATED, PT REFUSED TO REMOVE IT. R WRIST 24G, FLUSHED, PATENT AND INTACT. G-TUBE FEEDING IS RUNNING AT 45 ML/HR. FALL AND SZ SAFETY MEASURES IN PLACE. BED IS IN LOWEST POSITION. CALL LIGHT WITHIN REACH.
[2018-04-17 08:00] VITALS: BP 112/65
[2018-04-17] MEDS: CALCIUM CARBONATE 500 MG TAB GT SCH ×2 (09:53→20:55)
[2018-04-17] MEDS: levETIRAcetam 100 MG/ML ORASYR GT SCH ×2 (09:53→20:54)
[2018-04-17] MEDS: LACTOBACILLUS RHAMNOSUS GG 1 EACH CAP PO SCH (09:53)
[2018-04-17] MEDS: FAMOTIDINE 20 MG TAB GT SCH ×2 (09:53→20:55)
[2018-04-17] MEDS: ASCORBIC ACID 500 MG/5 ML ORASYR GT SCH (09:54)
[2018-04-17] MEDS: POTASSIUM CHLORIDE 20% 40 MEQ/15 ML UDC GT SCH (09:54)
[2018-04-17] MEDS: ENOXAPARIN 100 MG/ML SYR SUBQ SCH ×2 (10:18→20:56)
--- NOTE | 2018-04-17 10:35 | NUR ---
PT WAS CLEANED, BED BATH GIVEN. INCONTINENT DERMATITIS ADDRESSED WITH Z GUARD.
--- NOTE | 2018-04-17 11:04 | NUR ---
VENT CHECK DONE. NO RESPIRATORY DISTRESS NOTED AT THIS TIME. WILL CONTINUE TO MONITOR.
[2018-04-17 12:00] VITALS: BP 112/68
[2018-04-17] MEDS: MORPHINE SULFATE 4 MG/ML SYR IVP PRN (12:20)
--- NOTE | 2018-04-17 13:29 | NUR ---
VENT CHECK DONE. SCHEDULED BREATHING TREATMENT ADMINISTERED. TOLERATED TX WELL, NO ADVERSE SIDE EFFECTS. SUCTIONED SMALL AMOUNT OF THICK, WHITE SECRETIONS. NO RESPIRATORY DISTRESS NOTED AT THIS TIME. WILL CONTINUE TO MONITOR.
--- NOTE | 2018-04-17 15:34 | NUR ---
Received a phone call from Tomeka mother of patient . Tomeka was worried that her daughter will not be able to be accepted in [facility] upon discharge. Informed Tomeka [facility] is holding her daughter's bed for 7 days. Luisfloridalma was happy to know about the situation. I told her we will update her on bed availability at [facility] if pt stays here longer than 7 days.
[2018-04-17 16:00] VITALS: BP 100/50
--- NOTE | 2018-04-17 16:00 | NUR ---
PAGED DR BURGESS, REGARDING PICC LINE RECOMMENDATION.
--- NOTE | 2018-04-17 16:30 | NUR ---
DR BURGESS AGREED WITH PICC LINE INSERTION.
[2018-04-17] MEDS: NACL 0.9% 1,000 ML IV SCH (16:33)
[2018-04-17 16:35] LABS: BASOPHILS % (AUTO) 0.4 % (0.0-2.0); EOSINOPHILS # (AUTO) 0.2 K/uL (0-0.4); EOSINOPHILS % (AUTO) 3.3 % (0.0-4.0); HEMATOCRIT 30.2 % (36-48); HEMOGLOBIN 9.6 g/dL (12.0-16.0); LYMPHOCYTES # (AUTO) 1.5 K/uL (2.5-16.5); LYMPHOCYTES % (AUTO) 25.9 % (20.5-51.1); MEAN CORPUSCULAR HEMOGLOBIN 26 pg (27-31); MEAN CORPUSCULAR HGB CONC 32 g/dL (33-37); MEAN CORPUSCULAR VOLUME 80.5 fL (80-94); MONOCYTES # (AUTO) 0.7 K/uL (0.8-1.0); MONOCYTES % (AUTO) 12.5 % (1.7-9.3); NEUTROPHILS # (AUTO) 3.4 K/uL (1.8-7.7); NEUTROPHILS % (AUTO) 57.9 % (42.2-75.2); PLATELET COUNT (AUTO) 293 K/uL (140-450); RED BLOOD CELL COUNT(AUTO) 3.75 MIL/uL (4.20-5.40); RED CELL DISTRIBUTION WIDTH 15.8 % (11.6-13.7); WHITE BLOOD COUNT (AUTO) 5.9 K/uL (4.8-10.8)
--- NOTE | 2018-04-17 17:21 | NUR ---
CALLED PICC LINE SERVICE AND SPOKE WITH KRISTEN. SHE STATED THAT KAREN-RN WILL CALL FOR ETA. MELL-KATHYA MADE AWARE.
[2018-04-17] MEDS ORDERED: VANCOMYCIN 750 MG in DEXTROSE 5% 250 ML IV SCH (18:00)
--- NOTE | 2018-04-17 18:35 | NUR ---
DR HUYNH CALLED BACK, PUT DR HUYNH ON SPEAKER WITH THE PT. DISCUSSED BENEFITS AND RISKS OF PICC LINE WITH PT. PT NODDING AND AGREED TO THE PROCEDURE. NO QUESTIONS AT THIS TIME. PT SIGNED THE CONSENT.
--- NOTE | 2018-04-17 19:30 | NUR ---
ENDORSED PT TO PROPERTY COORDINATOR RN. PT IN STABLE CONDITION. PICC LINE NURSE KAREN IS WAITING TO START PICC INSERTION.
--- NOTE | 2018-04-17 19:31 | NUR ---
RECEIVED REPORT FROM DAY SHIFT NURSE MELL-RN AT BEDSIDE. PT RESTING IN BED, AOX3, TRACH TO VENT (FIO2 28, FLOW RATE 40), WITH RIGHT WRIST AND FA #[id number] WITH CURRENT ORDERS FOR PICC LINE PLACEMENT. DISCUSSED PLAN OF CARE AND PT VERBALIZED UNDERSTANDING. NO S/S OF RESPIRATORY DISTRESS OR DISCOMFORT NOTED AT THIS TIME. BED IN LOWEST POSITION, BED BREAKS ON, BOTH SIDE RAILS UP AND BOTH FALL AND CONTACT PRECAUTIONS IN PLACE (ESBL URINE AND MRSA SPUTUM). BEDSIDE TABLE AND CALL LIGHT ARE WITHIN REACH. WILL CONTINUE TO MONITOR.
--- NOTE | 2018-04-17 19:32 | NUR ---
G-TUBE FEEDING IN PLACE- VITAL AF 1.2 @ 45ML/HR WITH WATER FLUSH 125 Q6H WITH 30ML RESIDUAL. INCONTINENT DERMATITIS AROUND ANUS.
[2018-04-17 20:00] VITALS: BP 90/50
--- NOTE | 2018-04-17 20:00 | NUR ---
VITAL SIGNS TAKEN AND BLOOD GLUCOSE 178- WILL ADMINISTER INSULIN COVERAGE. NO S/S OF RESPIRATORY DISTRESS OR DISCOMFORT NOTED AT THIS TIME. WILL CONTINUE TO MONITOR.
[2018-04-17] MEDS: VANCOMYCIN 750 MG in DEXTROSE 5% 250 ML IV SCH (20:54)
--- NOTE | 2018-04-17 20:56 | NUR ---
SCHEDULED MEDICATION GIVEN. VANCO GIVEN. WILL GIVEN ROCEPHIN WHEN VANCO HAS COMPLETED. LEFT UPPER ARM MIDLINE DOUBLE LUMEN IN PLACE. NO S/S OF RESPIRATORY DISTRESS OR DISCOMFORT NOTED AT THIS TIME. WILL CONTINUE TO MONITOR.
--- NOTE | 2018-04-17 21:00 | NUR ---
PT REFUSING TO HAVE BOTH RIGHT WRIST AND FA #[id number] IV TAKEN OUT STATING "NO!" NO S/S OF RESPIRATORY DISTRESS OR DISCOMFORT NOTED AT THIS TIME. WILL CONTINUE TO MONITOR.
--- NOTE | 2018-04-17 23:00 | NUR ---
PT SLEEPING IN BED. NO S/S OF RESPIRATORY DISTRESS OR DISCOMFORT NOTED AT THIS TIME. WILL CONTINUE TO MONITOR.
--- NOTE | 2018-04-17 23:38 | NUR ---
ROCEPHIN GIVEN AND TOLERATED WELL. NO S/S OF RESPIRATORY DISTRESS OR DISCOMFORT NOTED AT THIS TIME. WILL CONTINUE TO MONITOR.
[2018-04-18] VITALS: BP 87/39
--- NOTE | 2018-04-18 | NUR ---
VITAL SIGNS TAKEN AND TOLERATED WELL. NO S/S OF RESPIRATORY DISTRESS OR DISCOMFORT NOTED AT THIS TIME. WILL CONTINUE TO MONITOR.
[2018-04-18] MEDS: IPRATROPIUM 0.02% 0.5 MG/2.5 ML NEBU INH SCH ×3 (00:59→13:16)
[2018-04-18] MEDS: ALBUTEROL 0.083% 2.5 MG/3 ML NEBU INH SCH ×3 (01:00→13:17)
--- NOTE | 2018-04-18 02:00 | NUR ---
PT CONTINUES TO SLEEP IN BED. NO S/S OF RESPIRATORY DISTRESS OR DISCOMFORT NOTED AT THIS TIME. WILL CONTINUE TO MONITOR.
[2018-04-18] MEDS: VANCOMYCIN 750 MG in DEXTROSE 5% 250 ML IV SCH (03:47)
--- NOTE | 2018-04-18 03:47 | NUR ---
VANCOMYCIN GIVEN AND TOLERATED WELL. NO S/S OF RESPIRATORY DISTRESS OR DISCOMFORT NOTED AT THIS TIME. WILL CONTINUE TO MONITOR.
[2018-04-18 04:00] VITALS: BP 90/50
--- NOTE | 2018-04-18 04:00 | NUR ---
VITAL SIGNS TAKEN AND TOLERATED WELL. NO S/S OF RESPIRATORY DISTRESS OR DISCOMFORT NOTED AT THIS TIME. WILL CONTINUE TO MONITOR.
[2018-04-18] MEDS: BLOOD GLUCOSE MONITORING 1 DEV DEV FS SCH ×3 (05:52→17:27)
[2018-04-18] MEDS: INSULIN LISPRO SLIDING SCALE 100 UNITS/ML VIAL SUBQ PRN ×3 (05:59→17:28)
--- NOTE | 2018-04-18 06:00 | NUR ---
BLOOD GLUCOSE 239- 4 UNITS OF INSULIN COVERAGE GIVEN AND TOLERATED WELL. NO S/S OF RESPIRATORY DISTRESS OR DISCOMFORT NOTED AT THIS TIME. WILL CONTINUE TO MONITOR.
[2018-04-18 06:24] LABS: BASOPHILS % (AUTO) 0.3 % (0.0-2.0); EOSINOPHILS # (AUTO) 0.2 K/uL (0-0.4); HEMATOCRIT 27.1 % (36-48); HEMOGLOBIN 8.8 g/dL (12.0-16.0); LYMPHOCYTES # (AUTO) 1.2 K/uL (2.5-16.5); LYMPHOCYTES % (AUTO) 20.5 % (20.5-51.1); MEAN CORPUSCULAR HEMOGLOBIN 26 pg (27-31); MEAN CORPUSCULAR HGB CONC 32 g/dL (33-37); MEAN CORPUSCULAR VOLUME 81.4 fL (80-94); MONOCYTES # (AUTO) 0.7 K/uL (0.8-1.0); MONOCYTES % (AUTO) 12.2 % (1.7-9.3); NEUTROPHILS # (AUTO) 3.8 K/uL (1.8-7.7); PLATELET COUNT (AUTO) 297 K/uL (140-450); RED BLOOD CELL COUNT(AUTO) 3.33 MIL/uL (4.20-5.40); RED CELL DISTRIBUTION WIDTH 15.8 % (11.6-13.7)
[2018-04-18 06:54] LABS: ALBUMIN 2.2 g/dL (3.4-5.0); ANION GAP 15.3 (8-16); CARBON DIOXIDE 23.7 mmol/L (21-32); CREATININE 0.6 mg/dL (0.6-1.3); TOTAL BILIRUBIN 0.3 mg/dL (0.0-1.0)
--- NOTE | 2018-04-18 07:24 | NUR ---
ENDORSED PT CARE TO DAY SHIFT NURSE ABISAI FOR CONTINUITY OF CARE.
--- NOTE | 2018-04-18 07:25 | NUR ---
RECEIVED PT REPORT FROM FOUNDRY WORKER GENERAL NURSE. PT IS AAOX3, TRACH TO VENT, FIO2 28%. NO S/S OF DISTRESS NOTED, PT IS GETTING BREATHING TX. IV CATH NOTED ON THE RIGHT WRIST AND FA, SL. WILL DC LATER. MIDLINE WAS PLACED LAST NIGHT. PATENT AND INTACT. G-TUBE FEEDING IS RUNNING AT 45 ML/HR. FALL AND SZ SAFETY MEASURES IN PLACE. BED IS IN LOWEST POSITION. CALL LIGHT WITHIN REACH.
--- NOTE | 2018-04-18 07:32 | NUR ---
RECEIVED PATIENT TRACH PORTEX 7 TO VENT ON SETTINGS: AC 16, 450, +5, 28%. AIRWAY SECURE AND PATENT. VENT CHECK DONE. VENT ALARMS ON AND FUNCTIONING. TOLERATING VENT WELL. VENT PLUGGED INTO RED OUTLET. AMBU BAG AT BEDSIDE. CONTINUOUS PULSE OX ON AND FUNCTIONING; ALARMS ON AND FUNCTIONING. SCHEDULED BREATHING TREATMENT ADMINISTERED. TOLERATED TX WELL, NO ADVERSE SIDE EFFECTS. SUCTIONED SMALL AMOUNT OF THICK, WHITE SECRETIONS. NO RESPIRATORY DISTRESS NOTED AT THIS TIME. WILL CONTINUE TO MONITOR.
[2018-04-18 08:00] VITALS: BP 97/55
[2018-04-18] MEDS: CALCIUM CARBONATE 500 MG TAB GT SCH (09:06)
[2018-04-18] MEDS: LACTOBACILLUS RHAMNOSUS GG 1 EACH CAP PO SCH (09:06)
[2018-04-18] MEDS: FAMOTIDINE 20 MG TAB GT SCH (09:06)
[2018-04-18] MEDS: levETIRAcetam 100 MG/ML ORASYR GT SCH (09:07)
[2018-04-18] MEDS: ASCORBIC ACID 500 MG/5 ML ORASYR GT SCH (09:07)
[2018-04-18] MEDS: POTASSIUM CHLORIDE 20% 40 MEQ/15 ML UDC GT SCH (09:07)
--- NOTE | 2018-04-18 09:13 | NUR ---
VENT CHECK DONE. ALARMS ON AND FUNCTIONING. CONTINUOUS PULSE OX ON AND FUNCTIONING. NO DISTRESS NOTED AT THIS TIME. WILL CONTINUE TO MONITOR.
[2018-04-18] MEDS: ENOXAPARIN 100 MG/ML SYR SUBQ SCH (09:25)
--- NOTE | 2018-04-18 10:09 | NUR ---
CM NOTE PER [facility] MANUELA CHAMBERLAIN PH# [phone], WHEN PATIENT IS GOING TO BACK TO SNF, FOR [facility] AUTH# [id number]. CHARGE NURSE BING MACEDO.
--- NOTE | 2018-04-18 11:18 | NUR ---
VENT CHECK DONE. ALARMS ON AND AUDIBLE. CONTINUOUS PULSE OX ON AND FUNCTIONING. PATIENT QUIETLY RESTING. NO RESPIRATORY DISTRESS NOTED. WILL CONTINUE TO MONITOR.
--- NOTE | 2018-04-18 11:20 | NUR ---
PT RECEIVED BED BATH, Z GUARD APPLIED TO PERINEAL AREA. CHANGED INTER DRY UNDER BREASTS.
[2018-04-18 12:00] VITALS: BP 102/58
--- NOTE | 2018-04-18 13:32 | NUR ---
VENT CHECK DONE. VENT ALARMS ON AND AUDIBLE. SCHEDULED BREATHING TREATMENT ADMINISTERED. TOLERATED TX WELL, NO ADVERSE SIDE EFFECTS. REFUSING TO BE SUCTIONED AT THIS TIME. NO RESPIRATORY DISTRESS NOTED AT THIS TIME. WILL CONTINUE TO MONITOR.
--- NOTE | 2018-04-18 13:35 | NUR ---
DR BURGESS IS HERE, MADE HER AWARE AM LAB K 3.0, PT RECEIVED 20MEQ K VIA G TUBE TODAY. DR BURGESS WILL CONTACT DR HUIZAR REGARDING DISCHARGE PLANNING.
[2018-04-18] MEDS ORDERED: SULF-58 PO (13:39)
--- NOTE | 2018-04-18 13:40 | NUR ---
CONFIRMED WITH DR BURGESS, WILL REMOVE MIDLINE BEFORE DISCHARGE.
--- NOTE | 2018-04-18 14:57 | NUR ---
Auto Electrical Technician Note: [employer] Flight Attendant Marilin patient is not on isolation. I faxed patient's medical information to [facility]. Per Supa from [facility] , patient may return to room 4C anytime today, accepting physician is , [employer] Att[employer] Marilin made aware.
--- NOTE | 2018-04-18 15:06 | NUR ---
CM NOTE CONFIRMED WITH CHARGE NURSE BING THAT PATIENT HAS NO ISOLATION. PER KASSI OF [facility]# [phone], THE PATIENT WILL BE PICKED UP AT 4:30PM TIME TODAY, CCT, GOING TO [facility]. CHARGE NURSE BING AND MELL RASHEED AWARE.
--- NOTE | 2018-04-18 15:20 | NUR ---
CALLED [facility], REPORT GIVEN TO NURSE DRU. PT GOING TO ROOM 4C.
[2018-04-18] MEDS: MORPHINE SULFATE 2 MG/ML SYR IVP PRN (15:29)
--- NOTE | 2018-04-18 15:50 | NUR ---
PT WAS CLEANED AND REPOSITIONED. PICS TAKEN FOR UNDER BREAST AND BUTTOCKS, Z GUARD REAPPLIED.
[2018-04-18 16:00] VITALS: BP 104/68
--- NOTE | 2018-04-18 18:20 | NUR ---
REMOVED RIGHT UPPER ARM MIDLINE, TIP INTACT, PRESSURE APPLIED FOR 5 MIN. NO BLEEDING OBSERVED. FLUSHED AND CLAMP G TUBE. TELE REMOVED. REPORT WAS GIVEN. NO S/S OF ACUTE DISTRESS. PT LEFT WITH [facility] [employer] [facility]. GOING TO [facility] RM [address] UNDER DR HUYNH.
== END 2018-04-18 18:20 | DRG 720 ==
LOC: MED 18:35 → MTU 04-15 00:38
PROVIDERS: ADMIT Internal Medicine Pulmonary Disease; ATTEND Internal Medicine Pulmonary Disease
PROC: 5A1945Z Respiratory Ventilation, 24-96 Consecutive Hours (ICD-10-PCS; principal; 2018-04-14)
PROC: 05H533Z Insertion of Infusion Device into Right Subclavian Vein, Percutaneous Approach (ICD-10-PCS; 2018-04-17)
DX: A41.50 Gram-negative sepsis, unspecified (principal); Z99.11 Dependence on respirator [ventilator] status; J96.10 Chronic respiratory failure, unspecified whether with hypoxia or hypercapnia; J18.9 Pneumonia, unspecified organism; R53.2 Functional quadriplegia; J44.0 Chronic obstructive pulmonary disease with (acute) lower respiratory infection; D68.59 Other primary thrombophilia; G81.90 Hemiplegia, unspecified affecting unspecified side; G40.909 Epilepsy, unspecified, not intractable, without status epilepticus; F41.9 Anxiety disorder, unspecified; N13.6 Pyonephrosis; Z86.19 Personal history of other infectious and parasitic diseases; Z86.73 Personal history of transient ischemic attack (TIA), and cerebral infarction without residual deficits; Z88.0 Allergy status to penicillin; Z93.1 Gastrostomy status; Z98.2 Presence of cerebrospinal fluid drainage device; Z88.5 Allergy status to narcotic agent; Z88.8 Allergy status to other drugs, medicaments and biological substances; E86.0 Dehydration; Z22.322 Carrier or suspected carrier of Methicillin resistant Staphylococcus aureus
CPT/HCPCS: 36415; 36600; 71045; 74150; 80053; 80202; 81001; 82803; 82948; 83036; 83605; 83880; 84132; 84484; 85025; 85610; 85730; 87040; 87070; 87081; 87086; 87186; 87205; 87804; 89220; 93005; 94003; 94640; 96374; 99285; C1751; J0696; J1200; J1650; J1815; J2060; J2185; J2270; J2405; J3370; J3490; J7030; J7060; J7613; J7644; Q0092

== ENCOUNTER 2019-09-24 19:41 | Emergency (ER) | payer OTHER, SELFPAY ==
[~2019-09-24] VITALS: Ht 160 cm; Wt 65.3 kg
[~2019-09-24 19:41] MED LIST changes: +ACET-2619 PO; +ASCO500T95 PO; +DEXT1LOZ MM; +FAMO-90 GT; -FLUO40CA6 PO; +HYDR-5122 GT; -LORA-476 PO; +OSC500 GT; -PRAV40TA1 PO; +SACC250C10 PO; +SULF-58 PO; +TRAM50TA1 PO
--- NOTE | 2019-09-24 19:41 | NUR ---
PT SISSY ALS. TAKEN TO BED 1
[2019-09-24 19:42] VITALS: BP 144/85
--- NOTE | 2019-09-24 20:07 | NUR ---
PT BIB AMBULANCE FROM [facility] [place] DUE TO PERSISTANT FEVER. PT TESTED POSITIVE FOR COVID, RESULTS GIVEN TODAY. PT ON TRACH/VENT. PT RESPIRATIONS EVEN, REGULAR AND UNLABORED. G-TUBE IN PLACE. PT A/O X 4, UNABLE TO VOCALIZE BUT ABLE TO RESPOND AND COMMUNICATE BY MOUTHING AND GESTURING. PT HAS NOT BEEN HAVING N/V/D AND 02 SATS HAVE BEEN WNL AT FACILITY. SEIZURE PADS IN PLACE ON BED RAILING. BED IN LOWEST POSITION AND SIDERAILS UP X 2. ALLEGIES - PCN, CIPRO, CODEINE HX - CVA, CEREBRAL PALSY, VENT DEPENDENT, CHRONIC RESPIRATORYU FAILURE, SEIZURE DX, ASTHMA, DYSPHAGIA MEDS - SEE CHART
[2019-09-24 20:22] VITALS: BP 144/85
--- NOTE | 2019-09-24 20:43 | NUR ---
PT WAS REQUESTING TO HAVE HER MOTHER, OLGA, CONTACTED. CALLED AT [phone]., NO ANSWER AND UNABLE TO LEAVE MESSAGE DUE TO VM NOT SET UP. PT ADVISED
--- NOTE | 2019-09-24 20:45 | NUR ---
Katelynn rao in [facility] - 09/24/19 at 2148 by [email or web address] X-RAY AT BEDSIDE
--- NOTE | 2019-09-24 20:51 | NUR ---
LAB AT BEDSIDE
[2019-09-24] MEDS ORDERED: ACETAMINOPHEN 325 MG TAB PO ONE (21:25)
[2019-09-24] MEDS ORDERED: ACETAMINOPHEN EXTRA STRENGTH 500 MG TAB PO ONE (21:35)
--- NOTE | 2019-09-24 21:48 | NUR ---
X-RAY AT BEDSIDE
--- NOTE | 2019-09-24 22:10 | NUR ---
PT TAKEN TO CT WITH RESPIRATORY AND RN VIA BERENICE
[2019-09-24 23:00] VITALS: BP 128/88
--- NOTE | 2019-09-24 23:10 | NUR ---
MULTIPLE ATTEMPTS MADE TO CONTACT [facility] FOR REPORT. DISCONNECTED MULTIPLE TIMES AND NOW NO ANSWER. WILL CONTINUE TO ATTEMPT.
--- NOTE | 2019-09-25 00:17 | NUR ---
[facility] TRANSPORT AT BEDSIDE.
--- NOTE | 2019-09-25 00:17 | NUR ---
SPOKE WITH KATHYA AREVALO [facility] MANAGER [place] [facility] [place] WILL BE RETURNING AND TRANSPORT IS AT BEDSIDE AT THIS TIME.
[2019-09-25 00:31] VITALS: BP 128/81
--- NOTE | 2019-09-25 00:32 | NUR ---
Patient discharged with v/s stable. Written and verbal after care instructions given and explained. Patient verbalized understanding. Ambulance Transport with to custodial. All questions addressed prior to discharge. Advised to follow up with PMD.
== END 2019-09-25 00:32 | disposition home or self-care (01) ==
LOC: MED 19:41 → EEVIPCON 19:41 → MED 09-25 00:32
DX: U07.1 COVID-19 (principal); J12.89 Other viral pneumonia
CPT/HCPCS: 71045; 74176; 99284; Q0092

== ENCOUNTER 2019-10-08 18:02 | Inpatient (IN) | payer OTHER, SELFPAY ==
[~2019-10-08] VITALS: Ht 154.9 cm; Wt 54.4 kg
--- NOTE | 2019-10-08 18:02 | NUR ---
PT BIBA FROM COUNTS INCLUDE 234 BEDS AT THE [facility] AND PLACED IN BED 10 FOR COVID PRECAUTIONS. PT TESTED POSITIVE FOR COVID 09/25/19. PT IS TRACH TO VENT DEPENDENT.
[2019-10-08 18:07] VITALS: BP 129/87
[2019-10-08] MEDS ORDERED: ACETAMINOPHEN 650 MG SUPP RC ONE (18:10)
[2019-10-08] MEDS ORDERED: LANTUS SUBQ (18:17)
[2019-10-08] MEDS ORDERED: RIVA20TA GT (18:17)
[2019-10-08] MEDS ORDERED: FENO145T GT (18:17)
[2019-10-08] MEDS ORDERED: [UNRECOGNIZED DRUG - CODE] PO (18:17)
[2019-10-08] MEDS ORDERED: ATI.5 GT (18:17)
[2019-10-08] MEDS ORDERED: LACT500C2 GT (18:17)
[2019-10-08] MEDS ORDERED: PRON INH (18:17)
--- NOTE | 2019-10-08 18:40 | NUR ---
39 Y[place]O FEM[place] [facility] [place]1 [place]. PT IS COVID +, TESTED ON August. STAFF REPORTS PT IS AT BASELINE BESIDES ELEVATED TEMP. PT IS WARM TO TOUCH, VSS, PT IS NSR TACHY @160. PT IS TRACH TO VENT, SP02 100%. PT IS BEDBOUND. SKIN-INTACT.
[2019-10-08] MEDS ORDERED: NACL 0.9% 1,500 ML IV ONE (18:45)
[2019-10-08 18:58] VITALS: BP 128/84
--- NOTE | 2019-10-08 19:14 | NUR ---
RECEIVED REPORT FROM JUDI RASHEED
--- NOTE | 2019-10-08 19:39 | NUR ---
UNABLE TO OBTAIN LABS OR IV ACCESS. ATTEMPT MADE WITH ULTRASOUND. MD MCKEON AWARE.
--- NOTE | 2019-10-08 19:40 | NUR ---
SEIZURE PRECAUTIONS INPLACE. RAILINGS PADDED
[2019-10-08 19:57] LABS: APPEARANCE,URINE CLOUDY (CLEAR); COLOR,URINE YELLOW (YELLOW)
[2019-10-08 19:59] LABS: BLOOD, URINE 2+ (NEGATIVE); UGLUCOSE NEGATIVE (NEGATIVE)
[2019-10-08 20:00] LABS: BILIRUBIN,URINE 1+ (NEGATIVE)
[2019-10-08 20:08] LABS: WBC,URINE 20-60 /HPF (0-5)
[2019-10-08 20:09] LABS: LEUKOCYTE ESTERASE ,URINE 3+ (NEGATIVE); NITRITE, URINE NEGATIVE (NEGATIVE)
[2019-10-08] MEDS ORDERED: cefTRIAXone 1,000 MG VIAL ONE (20:20)
--- NOTE | 2019-10-08 20:37 | NUR ---
IJ ESTABLISHED BY MD MCKEON. LABS DRAWN AND IV FLUIDS STARTED.
--- NOTE | 2019-10-08 20:37 | NUR ---
PT REMAINS ON BEDSIDE MONITOR. REMAINS ON VENT, NO RESPIRATORY DISTRESS NOTED
--- NOTE | 2019-10-08 20:40 | NUR ---
RECTAL TEMP 105.3, COOLING MEASURES INTIATED. PT REMAINS IN BEDSIDE MONITOR.
[2019-10-08 20:48] LABS: BASOPHILS % (AUTO) 0.1 % (0.0-2.0); EOSINOPHILS % (AUTO) 0.2 % (0.0-4.0); HEMATOCRIT 43.5 % (36-48); HEMOGLOBIN 13.1 g/dL (12.0-16.0); LYMPHOCYTES % (AUTO) 5.8 % (20.5-51.1); MEAN CORPUSCULAR HEMOGLOBIN 23 pg (27-31); MEAN CORPUSCULAR HGB CONC 30 g/dL (33-37); MEAN CORPUSCULAR VOLUME 76.4 fL (80-94); MONOCYTES # (AUTO) 1.3 K/uL (0.8-1.0); MONOCYTES % (AUTO) 7.2 % (1.7-9.3); NEUTROPHILS # (AUTO) 15.2 K/uL (1.8-7.7); NEUTROPHILS % (AUTO) 86.7 % (42.2-75.2); PLATELET COUNT (AUTO) 535 K/uL (140-450); RED BLOOD CELL COUNT(AUTO) 5.69 MIL/uL (4.20-5.40); RED CELL DISTRIBUTION WIDTH 17.7 % (11.6-13.7); WHITE BLOOD COUNT (AUTO) 17.5 K/uL (4.8-10.8)
--- NOTE | 2019-10-08 20:57 | NUR ---
X-Ray at bedside.
[2019-10-08 21:17] LABS: ALBUMIN 3.8 g/dL (3.4-5.0); ANION GAP 20.4 (8-16); CARBON DIOXIDE 21.9 mmol/L (21-32); CREATININE 1.5 mg/dL (0.6-1.3); POTASSIUM 3.3 mmol/L (3.5-5.1); TOTAL BILIRUBIN 0.9 mg/dL (0.0-1.0)
[2019-10-08] MEDS ORDERED: IBUPROFEN 600 MG TAB GT ONE (22:25)
--- NOTE | 2019-10-08 22:38 | NUR ---
RECTAL TEMP 103.2 MD MCKEON AWARE, NEW ORDER RECEIVED AND CARRIED OUT
[2019-10-08] MEDS ORDERED: MORPHINE SULFATE 4 MG/ML SYR IVP PRN (22:45)
[2019-10-08] MEDS ORDERED: metroNIDAZOLE 500 MG/NS PREMIX 100 ML IV ONE (22:45)
[2019-10-08] MEDS ORDERED: VANCOMYCIN PER PHARMACY MC PRN (22:45)
[2019-10-08] MEDS ORDERED: LORazepam 2 MG/ML VIAL IVP PRN (22:45)
[2019-10-08] MEDS ORDERED: ONDANSETRON 4 MG/2 ML VIAL IVP PRN (22:45)
[2019-10-08] MEDS ORDERED: VANCOMYCIN 1,000 MG in DEXTROSE 5% 250 ML IV ONE (23:55)
[2019-10-09] MEDS ORDERED: ACETAMINOPHEN EXTRA STRENGTH 500 MG TAB PO ONE (00:20)
--- NOTE | 2019-10-09 00:30 | NUR ---
RECTAL TEMP 103.2, MD MCKEON AWARE, NEW ORDER RECEIVED AND CARRIED OUT. COOLING MEASURES INITIATED AGAIN
[2019-10-09] MEDS: NACL 0.9% 1,000 ML IV SCH ×2 (00:41→11:15)
[2019-10-09 00:48] VITALS: BP 130/79
[2019-10-09] MEDS ORDERED: VANCOMYCIN 1,000 MG VIAL ONE (02:22)
--- NOTE | 2019-10-09 03:11 | NUR ---
PT RESPIRATIONS REGULAR AND UNLABORED, NO SIGNS OF DISTRESS NOTED AT THIS TIME. PT ABLE TO REACH OUT WITH HER RIGHT HAND AND GRAB YOUR HAND AND SQUEEZE. IV FLUIDS CONTNUE TO INFUSE. PT ON BEDISDE MONITOR
[2019-10-09 04:54] VITALS: BP 113/87
--- NOTE | 2019-10-09 05:47 | NUR ---
PT RESTING, NO DISTRESS NOTED, RECTAL TEMP 100.6 AND HEART RATE HAS IMPROVED, PT MORE RESPONSIVE AT THIS TIME, GESTURING WITH HER HAND. REMAINS ON BEDSIDE MONITOR. PT TO BE TRANSFERRED TO TELE UNIT ON AM SHIFT.
[2019-10-09] MEDS: ACETAMINOPHEN 325 MG TAB PO PRN ×2 (05:53→11:03)
--- NOTE | 2019-10-09 06:47 | NUR ---
LAB AT BEDSIDE
[2019-10-09 07:01] LABS: BASOPHILS % (AUTO) 0.2 % (0.0-2.0); HEMATOCRIT 36.5 % (36-48); HEMOGLOBIN 11.1 g/dL (12.0-16.0); MEAN CORPUSCULAR HEMOGLOBIN 23 pg (27-31); MEAN CORPUSCULAR HGB CONC 30 g/dL (33-37); MEAN CORPUSCULAR VOLUME 76.5 fL (80-94); MONOCYTES # (AUTO) 1.7 K/uL (0.8-1.0); MONOCYTES % (AUTO) 11.1 % (1.7-9.3); NEUTROPHILS # (AUTO) 11.8 K/uL (1.8-7.7); NEUTROPHILS % (AUTO) 75.7 % (42.2-75.2); PLATELET COUNT (AUTO) 317 K/uL (140-450); RED BLOOD CELL COUNT(AUTO) 4.77 MIL/uL (4.20-5.40); RED CELL DISTRIBUTION WIDTH 17.3 % (11.6-13.7); WHITE BLOOD COUNT (AUTO) 15.6 K/uL (4.8-10.8)
--- NOTE | 2019-10-09 07:05 | NUR ---
PT TO GO TO 105A, BED HAS NOT BEEN CLEANED YET. WILL GIVE REPORT TO AM SHIFT.
--- NOTE | 2019-10-09 07:15 | NUR ---
REPORT GIVEN TO MENDOZA RASHEED
--- NOTE | 2019-10-09 07:16 | NUR ---
Report received from KATHYA Lin. Resume care at this time.
[2019-10-09 07:30] LABS: ALBUMIN 3.1 g/dL (3.4-5.0); ANION GAP 20.3 (8-16); CARBON DIOXIDE 18.3 mmol/L (21-32); CREATININE 1.1 mg/dL (0.6-1.3); TOTAL BILIRUBIN 0.8 mg/dL (0.0-1.0)
[2019-10-09 08:00] VITALS: BP 114/83
--- NOTE | 2019-10-09 08:07 | NUR ---
RT IS AT BEDSIDE.
[2019-10-09] MEDS ORDERED: CALCIUM CARBONATE 500 MG TAB GT SCH (09:00)
--- NOTE | 2019-10-09 09:30 | NUR ---
ALL MORNING SCHEDULED MEDS GIVEN TO PT. PT IS RESTING IN THE BED. SEIZURE PADS ARE ON PORTILLO BEDRAILS; PT IS ON VET AND MONITOR WITH VSS. WILL CONTINUE MONITOR PT'S VITAL SIGNS. Addendum: 10/09/19 at 1224 by MEDHR ALL MEDS DILUTED BY 80ML STERILE WATER AND DIVIDED BY 4 TIMES TO GIVE PT VIA GT. 20ML STERILE WATER FLUSH THE GT BEFORE AND AFTER MEDICATIONS GIVEN. TOTAL 100 ML INTAKE AT THIS TIME.
[2019-10-09] MEDS: AZTREONAM 1,000 MG in DEXTROSE 5% 50 ML IV SCH ×2 (09:45→20:24)
[2019-10-09] MEDS: levETIRAcetam 500 MG TAB PO SCH ×2 (09:46→20:23)
[2019-10-09] MEDS: FAMOTIDINE 20 MG TAB GT SCH ×2 (09:46→20:23)
[2019-10-09] MEDS: ASCORBIC ACID 500 MG TAB PO SCH ×2 (09:47→10:41)
[2019-10-09] MEDS: INSULIN LANTUS 100 UNITS/ML 10 ML VIAL SUBQ SCH (10:00)
[2019-10-09] MEDS: RIVAROXABAN 10 MG TAB GT SCH (10:41)
--- NOTE | 2019-10-09 10:45 | NUR ---
PT HAS RECTAL TEMP 101.1. TYLENOL 650MG VIA GT GIVEN TO PT. Addendum: 10/09/19 at 1228 by MEDHR MED WAS DILUTED BY 10ML STERILE WATER GIVEN TO PT VIA GT FOLLOWING BY 10ML FLUSH WITH STERILE WATER. TOTAL INTAKE 20ML
--- NOTE | 2019-10-09 11:00 | NUR ---
DR. CAVAZOS IS AT BEDSIDE AND EVEALUTING PT. WILL INSERT CACERES CATH PER DR. CAVAZOS'S ORDER.
--- NOTE | 2019-10-09 11:05 | NUR ---
14 CACERES CATH INSERTED. PT TOLERARED WELL.
[2019-10-09] MEDS: NACL 0.45% 1,000 ML IV SCH (12:06)
[2019-10-09] MEDS: POTASSIUM CHLORIDE 20% 40 MEQ/15 ML UDC GT SCH ×2 (12:13→16:23)
--- NOTE | 2019-10-09 12:15 | NUR ---
DAILY WEIGHT MONITORING. PT WEIGHS 124LBS.
--- NOTE | 2019-10-09 12:32 | NUR ---
RT IS AT BEDSIDE.
--- NOTE | 2019-10-09 13:58 | NUR ---
PT RECTAL TEMP 100. TWO WRAPPED ICE PACKS PLACED ON PT'S PORTILLO AXILLARY AREAS.
--- NOTE | 2019-10-09 14:01 | NUR ---
PT O2 93% ON TRACH TO VENT. RT CALLED FOR SUCTION.
--- NOTE | 2019-10-09 15:30 | NUR ---
PT IS ON TRACH TO VENT AND MONITOR NOW WITH VSS. 0.45% NS IS RUNNING VIA LEFT IJ 18G. IV SITE IS CLEAN AND INTACT WITHOUT ANY EDEMA OR ERYTHEMA.
--- NOTE | 2019-10-09 17:25 | NUR ---
PT IS RESTING WITH EYES CLOSED. PT IS ON TRACH TO VENT AND MONITOR NOW WITH VSS. 0.45% NS IS RUNNING VIA LEFT IJ 18G. IV SITE IS CLEAN AND INTACT WITHOUT ANY EDEMA OR ERYTHEMA.
--- NOTE | 2019-10-09 18:22 | NUR ---
NEW DIAPER CHANGED ON PT. CLEANED AND REPOSITIONED PT. PT IS ON TRACH TO VENT AND MONITOR NOW WITH VSS. 0.45% NS IS RUNNING VIA LEFT IJ 18G. IV SITE IS CLEAN AND INTACT WITHOUT ANY EDEMA OR ERYTHEMA.
--- NOTE | 2019-10-09 19:16 | NUR ---
Pt report given to KATHYA Noguera. Transfer of care at this time.
--- NOTE | 2019-10-09 19:45 | NUR ---
PT ARRIVED FROM EMERGENCY DEPT TO UNIT VIA GURNEY. RECEIVED REPORT FROM ER NURSE. PT IS AWAKE BUT UNABLE TO TALK. COMMUNICATES THRU GESTURES. PT IS CALM AND COOPERATIVE TO CARE. PT HAS TRACH CONNECTED TO VENT. RESPIRATIONS EVEN AND UNLABORED. O2 SAT 100%. SKIN IS WARM, DRY, AND INTACT. ABDOMEN IS SOFT AND NON-TENDER. PT HAS GTUBE IN PLACE. IV ACCESS ON LEFT IJ G18 PATENT AND INTACT. IVF RUNNING WELL. NO S/SX OF DISTRESS NOTED. FLACC 0. PT KEPT COMFORTABLE. WELCOMED AND ORIENTED TO ROOM. GOWNS CHANGED, MRSA SWAB COLLECTED, VS TAKEN. MEDICATIONS RECEIVED FROM ER. SAFETY AND SEIZURE PRECAUTIONS IN PLACE. CALL LIGHT WITHIN REACH. WILL CONTINUE TO MONITOR.
--- NOTE | 2019-10-09 19:45 | NUR ---
Patient will be admitted to care of DR CAVAZOS. Admited to TELE. Will go to room 124 B. Belongings list completed. Report to KOURTNEY RASHEED.
[2019-10-09 20:00] VITALS: BP 110/85
[2019-10-09] MEDS ORDERED: CRUSHER, PILL MC ONE (20:17)
[2019-10-09] MEDS: CALCIUM CARBONATE 500 MG TAB GT SCH (20:20)
[2019-10-09] MEDS: VANCOMYCIN 750 MG in DEXTROSE 5% 250 ML IV SCH (20:24)
--- NOTE | 2019-10-09 20:25 | NUR ---
VITAL SIGNS STABLE. SCHEDULED MEDS GIVEN. TRACH CONNECTED TO VENT. O2 SAT 98%. NO S/SX OF DISTRESS. FLACC 0. SAFETY MEASURES IN PLACE. CALL LIGHT WITHIN REACH. WILL CONTINUE TO MONITOR.
--- NOTE | 2019-10-09 22:05 | NUR ---
PT ASLEEP IN BED WITH HOB SLIGHTLY ELEVATED. TRACH CONNECTED TO VENT. VISIBLE CHEST RISE AND FALL NOTED. PT NOT IN DISTRESS. SAFETY MEASURES IN PLACE. WILL CONTINUE TO MONITOR.
[2019-10-10] VITALS: BP 134/68
--- NOTE | 2019-10-10 00:02 | NUR ---
VITAL SIGNS STABLE. AFEBRILE. PT IN BED RESTING. TRACH CONNECTED TO VENT. NO S/SX OF DISTRESS NOTED. SAFETY MEASURES IN PLACE. WILL CONTINUE TO MONITOR.
[2019-10-10] MEDS: NACL 0.45% 1,000 ML IV SCH ×3 (00:25→23:40)
--- NOTE | 2019-10-10 02:01 | NUR ---
ROUNDS MADE. PT ASLEEP. PT NOT IN DISTRESS. TRACH CONNECTED TO VENT. O2 SAT 99%. PT KEPT COMFORTABLE. SAFETY MEASURES IN PLACE. CALL LIGHT WITHIN REACH. WILL CONTINUE TO MONITOR.
[2019-10-10 04:00] VITALS: BP 133/89
--- NOTE | 2019-10-10 06:35 | NUR ---
VITAL SIGNS STABLE. PT IN BED RESTING. TRACH CONNECTED TO VENT. NO S/SX OF DISTRESS NOTED. O2 SAT 99%. SAFETY MEASURES IN PLACE. CALL LIGHT WITHIN REACH. WILL CONTINUE TO MONITOR.
--- NOTE | 2019-10-10 07:20 | NUR ---
ENDORSED TO DAY SHIFT NURSE FOR CONTINUITY OF CARE. PATIENT IS IN STABLE CONDITION.
--- NOTE | 2019-10-10 07:21 | NUR ---
RECEIVED REPORT FROM SURVEY RESEARCH ANALYST NURSE. PATIENT LYING DOWN IN BED SLEEPING, AROUSABLE BY VOICE. NO DISTRESS NOTED. FLACC 0. RESPIRATIONS EVEN, UNLABORED, ON TRACH TO VENT WITH SETTINGS: FIO2:35%, VT450, PEEP:5 WITH O2 SAT AT 99%. LEFT IJ IV SITE INTACT, PATENT, AND INFUSING IVF PER MD ORDERS. CACERES CATHETER IN PLACE, DRAINING YELLOW URINE. AAOX1, ABLE TO RESPOND WITH BODY LANGUAGE. SKIN COLOR APPROPRIATE TO ETHNICITY, WARM TO TOUCH. SKIN INTACT. REVIEWED PLAN OF CARE WITH PATIENT. REINFORCEMENT NEEDED. SAFETY MEASURES IN PLACE, CALL LIGHT WITHIN REACH. WILL CONTINUE TO MONITOR.
[2019-10-10 08:00] VITALS: BP 132/83
[2019-10-10] MEDS: INSULIN LANTUS 100 UNITS/ML 10 ML VIAL SUBQ SCH (09:00)
[2019-10-10] MEDS ORDERED: INSULIN LISPRO SLIDING SCALE 100 UNITS/ML VIAL SUBQ PRN (09:25)
[2019-10-10] MEDS ORDERED: DEXTROSE 50% 50 ML SYR IVP PRN (09:25)
[2019-10-10] MEDS: CALCIUM CARBONATE 500 MG TAB GT SCH ×2 (09:28→20:17)
[2019-10-10] MEDS: RIVAROXABAN 10 MG TAB GT SCH (09:29)
[2019-10-10] MEDS: FAMOTIDINE 20 MG TAB GT SCH ×2 (09:29→20:17)
[2019-10-10] MEDS: levETIRAcetam 500 MG TAB PO SCH ×2 (09:30→20:17)
--- NOTE | 2019-10-10 09:40 | NUR ---
CHECKED BS = 54, DEXTROSE 50 GIVEN PER MD ORDERS. OTHER SCHEDULED MEDICATIONS DUE GIVEN. WILL CONTINUE TO MONITOR.
[2019-10-10] MEDS: AZTREONAM 1,000 MG in DEXTROSE 5% 50 ML IV SCH ×2 (09:46→20:17)
[2019-10-10] MEDS: BLOOD GLUCOSE MONITORING 1 DEV DEV FS SCH ×3 (11:30→20:32)
[2019-10-10 12:00] VITALS: BP 122/92
[2019-10-10 12:29] LABS: BASOPHILS % (AUTO) 0.2 % (0.0-2.0); EOSINOPHILS % (AUTO) 0.2 % (0.0-4.0); HEMATOCRIT 35.4 % (36-48); HEMOGLOBIN 10.6 g/dL (12.0-16.0); LYMPHOCYTES # (AUTO) 2.6 K/uL (2.5-16.5); LYMPHOCYTES % (AUTO) 18.7 % (20.5-51.1); MEAN CORPUSCULAR HEMOGLOBIN 23 pg (27-31); MEAN CORPUSCULAR HGB CONC 30 g/dL (33-37); MEAN CORPUSCULAR VOLUME 77.4 fL (80-94); MONOCYTES % (AUTO) 7.4 % (1.7-9.3); NEUTROPHILS # (AUTO) 10.4 K/uL (1.8-7.7); NEUTROPHILS % (AUTO) 73.5 % (42.2-75.2); PLATELET COUNT (AUTO) 225 K/uL (140-450); RED BLOOD CELL COUNT(AUTO) 4.57 MIL/uL (4.20-5.40); RED CELL DISTRIBUTION WIDTH 17.6 % (11.6-13.7); WHITE BLOOD COUNT (AUTO) 14.1 K/uL (4.8-10.8)
[2019-10-10 12:53] LABS: ANION GAP 18.1 (8-16); CARBON DIOXIDE 17.9 mmol/L (21-32); CREATININE 0.8 mg/dL (0.6-1.3); TOTAL BILIRUBIN 0.6 mg/dL (0.0-1.0)
--- NOTE | 2019-10-10 13:34 | NUR ---
DC PLANNIN YRS OLD FEMALE PATIENT [place] [facility] [place] OF [place]. PT HAS A HX OF CVA CHRONIC RESP FAILURE S/P TRACH TO VENT , DEBRANDER SHUNT SEIZER DISORDER CEREBRAL PALSY HTN, AND HLD. CXR SHOWED NO ACUTE CARDIOPULMONARY DISEASE. ON 09/23 PT WAS POSITIVE COVID TEST. STARTED ON IVF, IV ABX VANCO AND ZOSYN, CONTINUE HOME MEDS. COVID TEST, BLOOD AND URINE CULTURE PENDING, DC PLAN TO GO BACK [place] [facility] STABLE CM TO FOLLOW. Addendum: 10/12/19 at 1416 by Yvonne Foss CM DC PLANNING CONTINUE IV ABX ZOSYN AND VANCO , CONTINUE HOME MEDS SPIKE FEVEL LAST NIGHT, AWAITING FOR COVID RESULT DC PLAN TO GO BACK [place] [facility] [place] ST[place] CM TO FOLLOW. Addendum: 10/13/19 at 1113 by Yvonne Foss DC PLANNING: DISCUSSED WITH DR CONKLIN FOR DC PLANNING, PER PT IS STABLE FOR DISCHARGE. RESPONDING WELL FOR TREATMENT. AWAITING FOR COVID RESULT. CALLED LAB SPOKE WITH CHON WILL CALL THE LAB CENTER. CM TO FOLLOW Addendum: 10/13/19 at 1157 by Claudia Cee CM FA[place]ED PATIENTS CL[place]IC[place] [facility] Addendum: 10/13/19 at 1334 by Claudia Cee CM PATIENT WILL RETURN [place] [facility] [place] GOING TO ROOM 34 B. SET UP TRANSPORTATION WITH [facility] FOR 5:00 PM Addendum: 10/13/19 at 1338 by Claudia Cee CM NOTIFIED KATHYA PINTO [place] [facility] CONTACTED PATIENTS BROTHER CRISTO BRANDT [phone] TO NOTIFY HIM OF DISCHARGE BACK [place] [facility].
[2019-10-10] MEDS ORDERED: POTASSIUM CHLORIDE 40 MEQ, LIDOCAINE MPF 1% 25 MG in NACL 0.9% 250 ML IV SCH (15:30)
[2019-10-10 16:00] VITALS: BP 120/88
[2019-10-10] MEDS: ACETAMINOPHEN 325 MG TAB PO PRN (16:30)
--- NOTE | 2019-10-10 16:32 | NUR ---
PATIENT HAS A 100.5 FEVER, TYLENOL GIVEN AT THIS TIME. OTHER SCHEDULED MEDICATIONS DUE GIVEN. WILL CONTINUE TO MONITOR.
--- NOTE | 2019-10-10 18:00 | NUR ---
PATIENT LYING DOWN IN BED SLEEPING, AROUSABLE BY VOICE. NO DISTRESS NOTED. CONDITION UNCHANGED. WILL CONTINUE TO MONITOR.
--- NOTE | 2019-10-10 19:21 | NUR ---
GAVE REPORT TO CONNIE CLEANER NURSE FOR CONTINUITY OF CARE. PATIENT IN STABLE CONDITION.
--- NOTE | 2019-10-10 19:22 | NUR ---
RECEIVED BEDSIDE REPORT FROM DAY RN. PT IS APHASIC. ABLE TO MOUTH SOME WORDS. PT IS TRACH TO VENT. FIO2 35% SAT WELL 100% HR 96. PT IS DROPLET PRECAUTION R/O COVID. PT TESTED + IN CEC. COVID SWAP PENDING. IV ON L IJ 18G 1/2 NS INFUSING AT 80ML/H. PT WITH GTUBE FEEDING GLUCERNA 1.2 AT 60ML/H FWF 200ML/Q6H. PT IS INCONTINENT. DX SPESIS. PT WITH CACERES DRAINING YELLOW URINE. HX CVA WITH L SIDE WEAKNESS. ABLE TO MOVE R ARM. BEDBOUND. POC DISCUSSED WITH PT. CALL LIGHT IS WITHIN REACH. WILL ROUND FREQUENTLY.
[2019-10-10 20:00] VITALS: BP 122/68
--- NOTE | 2019-10-10 20:17 | NUR ---
VSS. CLAY MEDICATION GIVEN PER ORDERS. MED EDUCATION GIVEN. REPOSITION PT FOR COMFORT. PT TOLERATED WELL. HELD FEEDING D/T 150 CC RESIDUAL. PT NODDED UNDERSTANDING. ALL NEEDS MET. CALL LIGHT IS WITHIN REACH.
[2019-10-10] MEDS: VANCOMYCIN 750 MG in DEXTROSE 5% 250 ML IV SCH (21:13)
--- NOTE | 2019-10-10 22:07 | NUR ---
PT IS RESTING COMFORTABLY IN BED WATCHING TV. CALL LIGHT IS WITHIN REACH. WILL CONTINUE TO MONITOR.
--- NOTE | 2019-10-10 22:45 | NUR ---
ASSISTED PT WITH ORAL CARE. PT ABLE TO HOLD TOOTHBRUSH AND BRUSH OWN TEETH. SUCTION FROM MOUTH AND TRACH. PT TOLERATED WELL. PT WITH 120 CC RESIDUAL FROM G-TUBE, WILL CONTINUE TO HOLD TUBE FEEDING. SAFETY MEASURES ARE IN PLACE. CALL LIGHT IS WITHIN REACH.
[2019-10-11] VITALS: BP 138/75
--- NOTE | 2019-10-11 | NUR ---
VITAL SIGNS ARE WITHIN NORMAL LIMITS. CALL LIGHT IS WITHIN REACH. ALL SAFETY MEASURES ARE IN PLACE.
--- NOTE | 2019-10-11 01:45 | NUR ---
40CC RESIDUALS TUBE FEEDING RESUME PER ORDER. SAFETY MEASURES ARE IN PLACE. WILL CONTINUE TO MONITOR.
[2019-10-11 04:00] VITALS: BP 124/84
[2019-10-11] MEDS: ACETAMINOPHEN 325 MG TAB PO PRN ×3 (04:24→21:13)
--- NOTE | 2019-10-11 04:24 | NUR ---
VSS. TEMP 100.6 STARTED COOLING MEASURES AND ADMINISTERED PRN TYLENOL. HELD FEEDING AGAIN FOR RESIDUAL 130CC. WILL CONTINUE TO MONITOR.
--- NOTE | 2019-10-11 06:13 | NUR ---
PATIENT HAS BEEN SCREENED AND CATEGORIZED HIGH NUTRITION RISK. PATIENT WILL BE SEEN WITHIN 1-2 DAYS OF ADMISSION. 10/11/19-10/12/19 SHAWN MILAN MS, RDN
[2019-10-11] MEDS: BLOOD GLUCOSE MONITORING 1 DEV DEV FS SCH ×4 (06:29→16:58)
--- NOTE | 2019-10-11 07:25 | NUR ---
GAVE BEDSIDE REPORT TO DAY RN. PT ENDORSED IN STABLE CONDITION.
--- NOTE | 2019-10-11 07:31 | NUR ---
RECEIVED PT FROM COOK VEGETABLE NURSE, MARIA LUISA, PT IS ON A TRACH TO VENT, WITH CACERES CATHETER IN PLACE, BEDBOUND, WITH A LEFT IJ G. [address] WITH IVF OF 1/2 NS INFUSING AT 80ML/HR, OE SATURATION IS AT 100%, NO SIGN OF DISTRESS NOTED AND WILL MONITOR PT.
[2019-10-11 08:00] VITALS: BP 136/75
[2019-10-11] MEDS: INSULIN LANTUS 100 UNITS/ML 10 ML VIAL SUBQ SCH (09:00)
[2019-10-11] MEDS: AZTREONAM 1,000 MG in DEXTROSE 5% 50 ML IV SCH ×2 (09:12→20:05)
[2019-10-11] MEDS: FAMOTIDINE 20 MG TAB GT SCH ×2 (09:16→20:05)
[2019-10-11] MEDS: CALCIUM CARBONATE 500 MG TAB GT SCH ×2 (09:16→20:05)
[2019-10-11] MEDS: levETIRAcetam 500 MG TAB PO SCH ×2 (09:16→20:05)
[2019-10-11] MEDS: ASCORBIC ACID 500 MG TAB PO SCH (09:16)
--- NOTE | 2019-10-11 09:16 | NUR ---
PT WAS GIVEN THE SCHEDULED AM MEDICATIONS VIA G-TUBE, RESIDUAL NOTED IS 10ML, NO SIGN OF DISTRESS NOTED AND WILL MONITOR PT.
[2019-10-11] MEDS: RIVAROXABAN 10 MG TAB GT SCH (09:18)
[2019-10-11 10:39] LABS: BASOPHILS % (AUTO) 0.2 % (0.0-2.0); EOSINOPHILS # (AUTO) 0.1 K/uL (0-0.4); EOSINOPHILS % (AUTO) 0.7 % (0.0-4.0); HEMATOCRIT 33.9 % (36-48); HEMOGLOBIN 10.5 g/dL (12.0-16.0); LYMPHOCYTES # (AUTO) 2.2 K/uL (2.5-16.5); LYMPHOCYTES % (AUTO) 19.6 % (20.5-51.1); MEAN CORPUSCULAR HEMOGLOBIN 23 pg (27-31); MEAN CORPUSCULAR HGB CONC 31 g/dL (33-37); MEAN CORPUSCULAR VOLUME 75.9 fL (80-94); MONOCYTES # (AUTO) 0.9 K/uL (0.8-1.0); MONOCYTES % (AUTO) 8.1 % (1.7-9.3); NEUTROPHILS # (AUTO) 8.2 K/uL (1.8-7.7); NEUTROPHILS % (AUTO) 71.4 % (42.2-75.2); PLATELET COUNT (AUTO) 196 K/uL (140-450); RED BLOOD CELL COUNT(AUTO) 4.46 MIL/uL (4.20-5.40); RED CELL DISTRIBUTION WIDTH 18.2 % (11.6-13.7); WHITE BLOOD COUNT (AUTO) 11.4 K/uL (4.8-10.8)
[2019-10-11] MEDS: NACL 0.45% 1,000 ML IV SCH ×2 (11:27→23:51)
--- NOTE | 2019-10-11 11:30 | NUR ---
PT'S BLOOD GLUCOSE WAS CHECKED AND IS 101, NO INSULIN COVERAGE, NO SIGN OF DISTRESS NOTED AND WILL CONTINUE TO BE MONITORED.
[2019-10-11 11:46] LABS: ANION GAP 17.4 (8-16); CARBON DIOXIDE 18.4 mmol/L (21-32); POTASSIUM 3.8 mmol/L (3.5-5.1)
[2019-10-11 11:47] LABS: ALBUMIN 2.8 g/dL (3.4-5.0); CREATININE 0.7 mg/dL (0.6-1.3); TOTAL BILIRUBIN 0.4 mg/dL (0.0-1.0)
[2019-10-11 12:00] VITALS: BP 130/82
--- NOTE | 2019-10-11 14:59 | NUR ---
RECEIVED A CRITICAL LAB RESULT FROM [employer] MIXER MUSHROOM, PETAR, OF THE PT'S URINE CULTURE IS POSITIVE FOR E. COLI AND PROTEUS MIRABILIS ESBL.
--- NOTE | 2019-10-11 15:31 | NUR ---
PAGED DR. CONKLIN TO INFORM MD OF THE CRITICAL URINE CULTURE RESULT FOR PT, POSITIVE FOR E. COLI AND PROTEUS MIRABILIS ESBL. AWAITING MD CALL BACK.
--- NOTE | 2019-10-11 15:37 | NUR ---
RECEIVED A CALL BACK FROM DR. CONKLIN AND INFORMED OF THE PT'S URINE CULTURE RESULT, NO FURTHER ORDER GIVEN.
[2019-10-11 16:00] VITALS: BP 116/79
--- NOTE | 2019-10-11 19:12 | NUR ---
ENDORSED PT TO METAL BALER NURSEMARIA LUISA FOR CONTINUITY OF CARE, PT IS STABLE AT THIS TIME WITH TEMP. IS AT 99.
--- NOTE | 2019-10-11 19:13 | NUR ---
RECEIVED BEDSIDE REPORT FROM DAY RN. PT IS APHASIC. ABLE TO MOUTH SOME WORDS. PT IS TRACH TO VENT. FIO2 35% SAT WELL 100% HR 102. PT IS DROPLET PRECAUTION R/O COVID. PT TESTED + IN CEC. COVID SWAP PENDING. IV ON L IJ 18G 1/2 NS INFUSING AT 80ML/H. PT WITH GTUBE FEEDING GLUCERNA 1.2 AT 60ML/H FWF 200ML/Q6H. PT IS INCONTINENT. DX SPESIS. PT WITH CACERES DRAINING YELLOW URINE. HX CVA WITH L SIDE WEAKNESS. ABLE TO MOVE R ARM. BEDBOUND. POC DISCUSSED WITH PT. CALL LIGHT IS WITHIN REACH. WILL ROUND FREQUENTLY.
[2019-10-11 20:00] VITALS: BP 96/65
--- NOTE | 2019-10-11 20:05 | NUR ---
VSS. BG 124 NO INSULIN NEEDED. HELD TUBE FEEDING RESIDUAL 150CC. CLAY MEDS GIVEN VIA G-TUBE. MED EDUCATION GIVEN. PROVIDED ORAL CARE. SUCTION MOD AMOUNT OF CREAMY COLORED SECRETIONS. COOLING MEASURES ARE IN PLACE. ALL NEEDS MET. CALL LIGHT IS WITHIN REACH. WILL CONTINUE TO MONITOR.
[2019-10-11] MEDS: VANCOMYCIN 750 MG in DEXTROSE 5% 250 ML IV SCH (21:13)
--- NOTE | 2019-10-11 21:13 | NUR ---
COOLING MEASURES ARE IN PLACE. ADMINISTERED TYLENOL FOR TEMP 100.9 PT TOLERATED WELL. ALL SAFETY MEASURES ARE IN PLACE. CALL LIGHT IS WITHIN REACH.
--- NOTE | 2019-10-11 22:15 | NUR ---
MADE ROUNDS. PT RESTING COMFORTABLY IN BED WATCHING TV. NO S/S OF DISTRESS. REMAINS ON SAME VENT SETTINGS. SAT WELL 100%. CALL LIGHT IS WITHIN REACH. WILL CONTINUE TO MONITOR.
[2019-10-12] VITALS: BP 126/67
--- NOTE | 2019-10-12 | NUR ---
VITAL SIGNS ARE WITHIN NORMAL LIMITS. SUCTION SMALL AMOUNT OF CREAMY COLORED SECRETIONS. HOB ELEVATED. ALL SAFETY MEASURES ARE IN PLACE.
--- NOTE | 2019-10-12 02:00 | NUR ---
MADE ROUNDS. PT SLEEPING COMFORTABLY IN BED. VENT SETTINGS REMAIN THE SAME. WILL CONTINUE TO MONITOR.
[2019-10-12 04:00] VITALS: BP 109/71
--- NOTE | 2019-10-12 04:00 | NUR ---
VITAL SIGNS ARE WITHIN NORMAL LIMITS. PROVIDED ORAL CARE,PT TOLERATED WELL. SAFETY MEASURES ARE IN PLACE. CALL LIGHT IS WITHIN REACH. WILL CONTINUE TO MONITOR.
[2019-10-12] MEDS: ACETAMINOPHEN 325 MG TAB PO PRN ×2 (05:44→20:53)
--- NOTE | 2019-10-12 06:00 | NUR ---
PT WAS CLEANED AND REPOSITION FOR COMFORT. ADMINISTERED PRN TYLENOL FOR GEN PAIN. SAFETY MEASURES ARE IN PLACE. HOB ELEVATED. CALL LIGHT IS WITHIN REACH.
[2019-10-12] MEDS: BLOOD GLUCOSE MONITORING 1 DEV DEV FS SCH ×4 (06:03→20:37)
[2019-10-12 06:19] LABS: BASOPHILS % (AUTO) 0.2 % (0.0-2.0); EOSINOPHILS # (AUTO) 0.3 K/uL (0-0.4); EOSINOPHILS % (AUTO) 3.5 % (0.0-4.0); HEMATOCRIT 29.6 % (36-48); HEMOGLOBIN 9.1 g/dL (12.0-16.0); LYMPHOCYTES # (AUTO) 2.9 K/uL (2.5-16.5); MEAN CORPUSCULAR HEMOGLOBIN 24 pg (27-31); MEAN CORPUSCULAR HGB CONC 31 g/dL (33-37); MEAN CORPUSCULAR VOLUME 76.6 fL (80-94); MONOCYTES % (AUTO) 12.5 % (1.7-9.3); NEUTROPHILS # (AUTO) 3.6 K/uL (1.8-7.7); NEUTROPHILS % (AUTO) 46.8 % (42.2-75.2); PLATELET COUNT (AUTO) 159 K/uL (140-450); RED BLOOD CELL COUNT(AUTO) 3.87 MIL/uL (4.20-5.40); RED CELL DISTRIBUTION WIDTH 17.7 % (11.6-13.7); WHITE BLOOD COUNT (AUTO) 7.8 K/uL (4.8-10.8)
[2019-10-12 06:55] LABS: ALBUMIN 2.5 g/dL (3.4-5.0); ANION GAP 14.2 (8-16); CARBON DIOXIDE 21.7 mmol/L (21-32); CREATININE 0.8 mg/dL (0.6-1.3); TOTAL BILIRUBIN 0.3 mg/dL (0.0-1.0)
--- NOTE | 2019-10-12 07:22 | NUR ---
GAVE BEDSIDE REPORT TO DAY RN. PT ENDORSED IN STABLE CONDITION.
--- NOTE | 2019-10-12 07:24 | NUR ---
RECEIVED BEDSIDE REPORT FROM KNOT PICKER CLOTH NURSE LOIS. PT IS AWAKE AND RESTING ON BED, PATIENT IS APHASIC, TRACH TO VENT, SETTING : AC, FIO2 35%, SPO2 AT 98% AT THIS TIME. PATIENT IS ABLE TO MOUTH SOME WORDS AND USE R HAND TO SHOW HAND GESTURE. FLACC 0. NO SIGNS OF ACUTE DISTRESS NOTED. IV ON L IJ 18G INFUSING 1/2 NS AT 80ML/H PER MD ORDER. PATIENT IS BEDREST AND INCONTINENT WITH CACERES DRAINING YELLOW URINE. G TUBE FEEDING IN PLACE, GLUCERNA 1.2 AT 60ML/H FWF 200ML/Q6H. PLAN OF CARE DISCUSSED WITH PT. SAFETY MEASURES IN PLACE. SEIZURE PRECAUTION AND DROPLET PRECAUTION IN PLACE. BED IN LOW POSITION AND CALL LIGHT IS WITHIN REACH. BED ALARM ACTIVATED.
[2019-10-12 08:00] VITALS: BP 104/56
--- NOTE | 2019-10-12 09:29 | NUR ---
PT. ADMITTED WITH LOW LISA SCALE AT RISK,CONTINUE TO FOLLOW PRESSURE ULCER PREVENTION INTERVENTIONS. -TURN AND REPOSITION PATIENT Q 2H -ASSESS AND MONITOR SKIN CONDITION DURING POSITION CHANGE -OFFLOAD BILATERAL HEELS BY PLACING PILLOWS UNDER CALVES AT ALL TIMES, UNLESS OTHERWISE CONTRAINDICATED -PRESSURE REDISTRIBUTION BY PLACING PILLOWS AND OFFLOADING SACRALCOCCYX -KEEP SKIN CLEAN AND DRY AT ALL TIMES.
[2019-10-12] MEDS: ASCORBIC ACID 500 MG TAB PO SCH (09:32)
[2019-10-12] MEDS: FAMOTIDINE 20 MG TAB GT SCH ×2 (09:32→20:36)
[2019-10-12] MEDS: levETIRAcetam 500 MG TAB PO SCH ×2 (09:33→20:36)
[2019-10-12] MEDS: CALCIUM CARBONATE 500 MG TAB GT SCH ×2 (09:33→20:37)
[2019-10-12] MEDS: RIVAROXABAN 10 MG TAB GT SCH (09:34)
[2019-10-12] MEDS: AZTREONAM 1,000 MG in DEXTROSE 5% 50 ML IV SCH ×2 (09:35→20:36)
--- NOTE | 2019-10-12 09:57 | NUR ---
CHECKED G-TUBE RESIDUAL AND RECEIVED 25 ML, ADMINISTERED SCHEDULED MEDS PER MD ORDER, MEDS EDUCATION PROVIDED, FLUSH BEFORE AND AFTER MEDS ADMINISTER. PROVIDED ORAL CARE AND SUCTIONED PATIENT 2 X AND RECEIVED MINIMAL WHITE MUCUS. PATIENT IS AWAKE AND RESTING ON BED AT THIS TIME. NO SIGNS OF DISTRESS NOTED. TELE MONITOR ATTACHED. SAFETY MEASURES IN PLACE. BED ALARM ACTIVATED.
[2019-10-12] MEDS: INSULIN LANTUS 100 UNITS/ML 10 ML VIAL SUBQ SCH (10:06)
[2019-10-12 10:13] LABS: POTASSIUM 2.9 mmol/L (3.5-5.1)
--- NOTE | 2019-10-12 10:15 | NUR ---
RECEIVED CORTICAL LAB POTASSIUM 2.9 FROM LAB, PAGED DR CONKLIN AND AWAITING FOR DR CONKLIN TO RETURN CALL.
--- NOTE | 2019-10-12 10:20 | NUR ---
INFORMED DR CONKLIN AT NURSING STATION REGARDS ON POTASSIUM 2.[address] CONKLIN WAS AWARE.
--- NOTE | 2019-10-12 11:04 | NUR ---
WITH ASSIST FROM SAND SCREENER OPERATOR, PROVIDED HYGIENE CARE, PATIENT HAS A SMALL SOFT YELLOW BM. CHANGED ALL DIRTY LINENS. REPOSITIONED PATIENT AND OFFLOADED PRESSURE WITH PILLOWS, PATIENT TOLERATED WELL. PATIENT AWAKE AND WATCHING TV ON BED, DENIED PAIN, SOB AND ANY DIZZINESS, NO SIGNS OF ACUTE DISTRESS NOTED. TELE MONITOR IN PLACE. SAFETY MEASURES IN PLACE. BED IN LOW POSITION, CALL LIGHT WITHIN REACH, BED ALARM ACTIVATED AND BED LOCKED.
--- NOTE | 2019-10-12 11:39 | NUR ---
CHURCH HISTORY PROFESSOR NOTE: Patient's Orientation Unable To Assess Information Provided By [place] [facility] [place] WAS UNABLE TO MEET PATIENT AT BEDSIDE DUE TO MEDICAL CONDITION. Identifying Problems No Social Work Triggers Is A Social Work Consult Needed No Mandate Report Filed No Explanation Of Identifying Problems PATIENT IS A 39-YEAR-OLD FEMALE ADMITTED FOR SEPSIS. PATIENT HAS PMHX OF HTN. Admitted From Shelter Facility Shelter Facility [facility] - [phone] Pre-Admission Level Of Functioning Status Total Care Level Of Functioning Comment PER TIMMY, PATIENT IS NOT ALERT/ORIENTED AT BASELINE. Prior Resources/Services Used In Last 12 Months SNF Detention Care Subacute Prior DME Hospital Bed Patient Had Caregiver No Home Support No Caregiver Issues Financial Issues No Known Financial Issue Referral To The Financial Counselor Needed No Factors/Needs SNF/NH Placement Subacute Placement Explanation And Or Other Factors Affecting/Possible DC Needs PATIENT IS SUBACUTE PATIENT ON A BED HOLD. PATIENT REQUIRES 2 NEGATIVES TO BE ACCEPTED BACK AT [facility]. Discharge Plan Comments TENTATIVE DISCHARGE PLAN IS FOR PATIENT TO RETURN HOME. DC Plan Status Initiated
[2019-10-12 12:00] VITALS: BP 95/59
[2019-10-12] MEDS: POTASSIUM CHLORIDE 20% 40 MEQ/15 ML UDC GT SCH ×3 (12:03→20:36)
--- NOTE | 2019-10-12 12:03 | NUR ---
CHECKED BLOOD GLUCOSE AND RECEIVED 113, NO COVERAGE NEEDED, ADMINISTERED POTASSIUM CHLORIDE FOR LOW POTASSIUM 2.9 FROM AM LAB, MED EDUCATION PROVIDED, PATIENT IS RESTING ON BED AT THIS TIME. NO SIGNS OF DISTRESS NOTED. TELE MONITOR ATTACHED. SAFETY MEASURES IN PLACE. BED IN LOW POSITION AND CALL LIGHT WITHIN REACH. BED ALARM ACTIVATED.
--- NOTE | 2019-10-12 13:36 | NUR ---
PATIENT IS AWAKE AND WATCHING TV AT THIS TIME. FLACC 0. NO SIGNS OF DISTRESS NOTE. PROVIDED ORAL HYGIENE. PATIENT TOLERATED WELL. TELE MONITOR ATTACHED. SAFETY MEASURES IN PLACE.
--- NOTE | 2019-10-12 13:59 | NUR ---
RECEIVED A CALL FROM PATIENT'S BROTHER CRISTO, UPDATED CRISTO WITH PATIENT'S CURRENT CONDITION, AND CRISTO WAS AWARE.
--- NOTE | 2019-10-12 14:17 | NUR ---
ADJUSTED TUBE FEEDING TO 50 ML/HR PER RD RECOMMENDATION. PATIENT IS RESTING ON BED. NO SIGNS OF DISTRESS NOTED. TELE MONITOR ATTACHED. SAFETY MEASURES IN PLACE.
[2019-10-12 16:00] VITALS: BP 107/70
[2019-10-12] MEDS: NACL 0.45% 1,000 ML IV SCH (16:00)
--- NOTE | 2019-10-12 16:00 | NUR ---
ADMINISTERED SCHEDULED MEDS PER MD ORDER [employer]IA [employer], FLUSH BEFORE AND AFTER MEDS ADMINISTER. WITH ASSIST FROM SALES MARKETING DIRECTOR, PROVIDED HYGIENE CARE AND REPOSITIONED PATIENT AND PT TOLERATED WELL. NO SIGNS OF DISTRESS NOTED. TELE MONITOR IN PLACE. BED IN LOW POSITION, AND CALL LIGHT WITHIN REACH.
--- NOTE | 2019-10-12 16:21 | NUR ---
10/12/19 INITIAL ASSESSMENT COMPLETED PLEASE REFER TO NUTRITION ASSESSMENT UNDER CARE ACTIVITY FOR ESTIMATED NUTRITIONAL NEEDS. 1. RECOMMEND REDUCING GOAL RATE OF GLUCERNA 1.2 TO 50 ML/HR X24 HR -THIS WILL PROVIDE 966 ML OF WATER, 1440 CALORIES AND 72 GM OF PROTEIN 2. RECOMMEND FREE WATER FLUSH OF [address] TO FOLLOW-UP 2-3 DAYS, HIGH RISK JUNI LANDRY RD
--- NOTE | 2019-10-12 16:27 | NUR ---
CHECKED BLOOD GLUCOSE AND RECEIVED 114, NO COVERAGE NEEDED.
--- NOTE | 2019-10-12 17:54 | NUR ---
STARTED A NEW BOTTLE OF GT FEEDING GLUCERNA 1.2 AT 50 ML/HR AND H20 FLUSH AT 200 ML/Q6H, CHANGED ALL TUBING. PATIENT AWAKE AND RESTING ON BED AT THIS TIME. NO SIGNS OF DISTRESS NOTED. TELE MONITOR ATTACHED. SAFETY MEASURES IN PLACE.
--- NOTE | 2019-10-12 19:21 | NUR ---
ENDORSED PATIENT TO LAB RN NURSE AT BEDSIDE FOR CONTINUITY OF CARE. PATIENT IS IN STABLE CONDITION. TELE MONITOR ATTACHED.
--- NOTE | 2019-10-12 19:21 | NUR ---
RECEIVED PATIENT IN STABLE CONDITION FROM AM SHIFT NURSE FOR CONTINUITY OF CARE. TELE PATIENT. ABLE TO MAKE NEEDS KNOWN. TRACH TO VENT. RESPIRATIONS EVEN, UNLABORED. SUCTIONED THIN WHITE SECRETIONS. NO S/S RESPIRATORY DISTRESS. SKIN WARM, DRY. IV SITE NOTED TO LEFT IJ 18G PATENT/INTACT, INFUSING FLUIDS WELL. NO C/O PAIN. NO S/S ACUTE DISTRESS. ABDOMEN SOFT, NONTENDER. GT PATENT/INTACT. CONTINUES ON ENTERAL FEEDING, TOLERATING WELL. HOB UP 30 DEGREES. CACERES CATHETER PATENT WITH YELLOW URINE DRAINING TO GRAVITY. CALL LIGHT WITHIN REACH. SAFETY PRECAUTIONS IN PLACE. ISOLATION PRECAUTIONS OBSERVED BY ALL STAFF.
[2019-10-12 20:00] VITALS: BP 101/69
--- NOTE | 2019-10-12 20:53 | NUR ---
PATIENT C/O ACHING HEADACHE 04/20. MEDICATED ORDERED. CALL LIGHT WITHIN REACH.
--- NOTE | 2019-10-12 21:10 | NUR ---
DUE MEDS GIVEN. BLOOD GLUCOSE 84 MG/DL. CALL LIGHT WITHIN REACH. ISOLATION PRECAUTIONS OBSERVED. SAFETY PRECAUTIONS IN PLACE.
[2019-10-12] MEDS: VANCOMYCIN 750 MG in DEXTROSE 5% 250 ML IV SCH (21:19)
--- NOTE | 2019-10-12 21:53 | NUR ---
REASSESSED PATIENT'S PAIN LEVEL 0/10. PATIENT RESTING COMFORTABLY IN BED. NO S/S ACUTE DISTRESS. CALL LIGHT WITHIN REACH. SAFETY PRECAUTIONS OBSERVED. ISOLATION PRECAUTIONS OBSERVED BY ALL STAFF.
--- NOTE | 2019-10-12 23:00 | NUR ---
PATIENT ASLEEP. NO S/S ACUTE DISTRESS. CALL LIGHT WITHIN REACH. SAFETY PRECAUTIONS OBSERVED. ISOLATION PRECAUTIONS OBSERVED BY ALL STAFF.
[2019-10-13] VITALS: BP 131/69
--- NOTE | 2019-10-13 01:00 | NUR ---
MADE ROUNDS. PATIENT IS ASLEEP AND IN STABLE CONDITION. NO S/S ACUTE DISTRESS. CALL LIGHT WITHIN REACH. ISOLATION PRECAUTIONS OBSERVED BY ALL STAFF.
--- NOTE | 2019-10-13 03:00 | NUR ---
PATIENT IS AWAKE AND IN STABLE CONDITION. SUCTIONED THIN WHITE SECRETIONS. NO C/O PAIN. NO S/S ACUTE DISTRESS. CALL LIGHT WITHIN REACH. ISOLATION PRECAUTIONS OBSERVED BY ALL STAFF. SAFETY PRECAUTIONS IN PLACE.
[2019-10-13] MEDS: NACL 0.45% 1,000 ML IV SCH (03:54)
[2019-10-13 04:00] VITALS: BP 101/76
--- NOTE | 2019-10-13 04:24 | NUR ---
0400 TRACH CARE DONE
--- NOTE | 2019-10-13 05:24 | NUR ---
REPOSITIONED FOR COMFORT. NO C/O PAIN. NO S/S ACUTE DISTRESS. CALL LIGHT WITHIN REACH. ISOLATION PRECAUTIONS OBSERVED BY ALL STAFF. SAFETY PRECAUTIONS IN PLACE.
[2019-10-13] MEDS: BLOOD GLUCOSE MONITORING 1 DEV DEV FS SCH ×2 (06:31→11:47)
--- NOTE | 2019-10-13 07:20 | NUR ---
RECEIVED PATIENT FROM BOW MAKER GIFT WRAPPING NURSE FOR CONTINUITY OF CARE. TELE PATIENT. ABLE TO MAKE NEEDS KNOWN. TRACH TO VENT. RESPIRATIONS EVEN, UNLABORED. SUCTIONED THIN WHITE SECRETIONS. NO S/S RESPIRATORY DISTRESS. SKIN WARM, DRY. IV SITE NOTED TO LEFT IJ 18G PATENT/INTACT, INFUSING FLUIDS WELL. NO C/O PAIN. NO S/S ACUTE DISTRESS. ABDOMEN SOFT, NONTENDER. GT PATENT/INTACT. CONTINUES ON ENTERAL FEEDING, TOLERATING WELL. HOB UP 30 DEGREES. CACERES CATHETER PATENT WITH YELLOW URINE DRAINING TO GRAVITY. CALL LIGHT WITHIN REACH. SAFETY AND SEIZURE PRECAUTIONS IN PLACE. ISOLATION PRECAUTIONS OBSERVED BY ALL STAFF. POC DISCUSSED. WILL CONTINUE TO MONITOR.
[2019-10-13] MEDS ORDERED: VANCOMYCIN PER PHARMACY MC PRN (07:30)
--- NOTE | 2019-10-13 07:33 | NUR ---
REC 'D PT ON PB840 VENT SETTINGS AC 16 VT 450 PEEP5 FIO2 40% ALARMS ON AND AUDIBLE AND BVM AT HOB AND VENT IS PLUGGED INTO RED OUTLET, SXN PT SMALL AMT OF YELLOW SECRETIONS B\S ARE RHONCHI BILATERALLY, PT IS TRACH WITH PORTEX 7 PT IS RESTING AND WILL CONTINUE TO MONITOR PT
[2019-10-13 08:00] VITALS: BP 137/87
[2019-10-13] MEDS: levETIRAcetam 500 MG TAB PO SCH (08:27)
[2019-10-13] MEDS: ASCORBIC ACID 500 MG TAB PO SCH (08:27)
[2019-10-13] MEDS: FAMOTIDINE 20 MG TAB GT SCH (08:27)
[2019-10-13] MEDS: CALCIUM CARBONATE 500 MG TAB GT SCH (08:27)
--- NOTE | 2019-10-13 08:27 | NUR ---
MORNING MEDICATIONS GIVEN. NO SIGNS OF DISTRESS NOTED. WILL CONTINUE TO MONITOR.
[2019-10-13] MEDS: AZTREONAM 1,000 MG in DEXTROSE 5% 50 ML IV SCH (08:28)
[2019-10-13] MEDS: RIVAROXABAN 10 MG TAB GT SCH (08:48)
[2019-10-13] MEDS: INSULIN LANTUS 100 UNITS/ML 10 ML VIAL SUBQ SCH (08:48)
[2019-10-13] MEDS ORDERED: VANCOMYCIN 750 MG in DEXTROSE 5% 250 ML IV SCH (09:00)
[2019-10-13 10:32] LABS: BASOPHILS % (AUTO) 0.5 % (0.0-2.0); EOSINOPHILS # (AUTO) 0.3 K/uL (0-0.4); HEMATOCRIT 33.9 % (36-48); HEMOGLOBIN 10.6 g/dL (12.0-16.0); LYMPHOCYTES # (AUTO) 1.7 K/uL (2.5-16.5); MEAN CORPUSCULAR HEMOGLOBIN 24 pg (27-31); MEAN CORPUSCULAR HGB CONC 31 g/dL (33-37); MEAN CORPUSCULAR VOLUME 76.8 fL (80-94); MONOCYTES # (AUTO) 1.1 K/uL (0.8-1.0); NEUTROPHILS # (AUTO) 4.6 K/uL (1.8-7.7); NEUTROPHILS % (AUTO) 59.5 % (42.2-75.2); PLATELET COUNT (AUTO) 180 K/uL (140-450); RED BLOOD CELL COUNT(AUTO) 4.41 MIL/uL (4.20-5.40); RED CELL DISTRIBUTION WIDTH 18.4 % (11.6-13.7); WHITE BLOOD COUNT (AUTO) 7.7 K/uL (4.8-10.8)
[2019-10-13 10:49] LABS: ALBUMIN 2.6 g/dL (3.4-5.0); ANION GAP 16.6 (8-16); CARBON DIOXIDE 22.2 mmol/L (21-32); CREATININE 0.7 mg/dL (0.6-1.3); POTASSIUM 4.8 mmol/L (3.5-5.1); TOTAL BILIRUBIN 0.2 mg/dL (0.0-1.0)
--- NOTE | 2019-10-13 11:47 | NUR ---
NO INSULIN COVERAGE NEEDED FOR BLOOD GLUCOSE OF 141. NO SIGNS OF DISTRESS NOTED. V/S TAKEN AND IS WNL. WILL CONTINUE TO MONITOR.
[2019-10-13 12:00] VITALS: BP 134/78
[2019-10-13] MEDS ORDERED: [UNRECOGNIZED DRUG - CODE] IV (13:39)
[2019-10-13 15:11] VITALS: BP 134/78
--- NOTE | 2019-10-13 15:50 | NUR ---
DISCHARGE INSTRUCTION AND PAPERWORKS GIVEN. PATIENT UNABLE TO COMPREHEND AND UNABLE TO RETURN DEMO. IV SITE AND ARMBANDS REMAIN FOR TRANSFER. COVID PAPERWORKS (10 WAYS TO MANAGE RESPIRATORY SYMPTOMS, ISOLATION, NUTRITION) GIVEN. WILL CONTINUE TO MONITOR.
--- NOTE | 2019-10-13 17:20 | NUR ---
PATIENT TRANSFERRED TO [facility]IA [facility]. NO SIGNS OF DISTRESS NOTED. TRACH TO VENT IN PLACE, G-TUBE IN PLACE, CACERES CATHETER IN PLACE. DISCHARGE PAPERWORKS GIVEN. WILL CONTINUE TO MONITOR.
== END 2019-10-13 17:20 | DRG 720 ==
LOC: MED 18:02 → MTU 22:51
PROVIDERS: ADMIT Internal Medicine Pulmonary Disease; ATTEND Internal Medicine Pulmonary Disease
PROC: 5A1955Z Respiratory Ventilation, Greater than 96 Consecutive Hours (ICD-10-PCS; principal; 2019-10-08)
DX: A41.9 Sepsis, unspecified organism (principal); N39.0 Urinary tract infection, site not specified; E87.6 Hypokalemia; U07.1 COVID-19; E87.0 Hyperosmolality and hypernatremia; R53.81 Other malaise; J96.11 Chronic respiratory failure with hypoxia; R13.10 Dysphagia, unspecified; I10 Essential (primary) hypertension; E11.9 Type 2 diabetes mellitus without complications; E78.5 Hyperlipidemia, unspecified; Z99.11 Dependence on respirator [ventilator] status; G40.909 Epilepsy, unspecified, not intractable, without status epilepticus; Z86.73 Personal history of transient ischemic attack (TIA), and cerebral infarction without residual deficits; Z16.12 Extended spectrum beta lactamase (ESBL) resistance; B96.20 Unspecified Escherichia coli [E. coli] as the cause of diseases classified elsewhere; Z98.2 Presence of cerebrospinal fluid drainage device; G93.40 Encephalopathy, unspecified
CPT/HCPCS: 36415; 71045; 80053; 80202; 81001; 82948; 83605; 84484; 85025; 87040; 87081; 87086; 87186; 93005; 94003; 96361; 96365; 99291; J0696; J1815; J2001; J3370; J3480; J3490; J7030; J7060; U0003-CS

== ENCOUNTER 2021-01-09 17:59 | Emergency (ER) | payer OTHER, SELFPAY ==
[~2021-01-09] VITALS: Ht 165.1 cm; Wt 72.6 kg
[2021-01-09 17:59] VITALS: BP 123/75
[~2021-01-09 17:59] MED LIST changes: +ATI.5 GT; +FENO145T GT; +LACT500C2 GT; +LANTUS SUBQ; +PRON INH; +RIVA20TA GT; -SACC250C10 PO; -SULF-58 PO; +[UNRECOGNIZED DRUG - CODE] IV; +[UNRECOGNIZED DRUG - CODE] PO
[2021-01-09] MEDS ORDERED: AZITHROMYCIN 500 MG in DEXTROSE 5% 250 ML IV ONE (18:05)
[2021-01-09 18:12] VITALS: BP 123/75
--- NOTE | 2021-01-09 18:33 | NUR ---
PT ERMD 12 LEAD WAS DONE ON PT AND CAME BACK SINUS TACHYCARDIA AT 112 HR.
--- NOTE | 2021-01-09 18:44 | NUR ---
CONTACTED PATIENTS BROTHER, CRISTO BRANDT FOR CT CONTRAST CONSENT. RECEIVED VERBAL CONSENT VIA TELEPHONE. 2 RNS WITNESSED. CONSENT IN CHART
[2021-01-09] MEDS ORDERED: CLINDAMYCIN 600 MG/4 ML VIAL ONE (18:59)
[2021-01-09 19:01] LABS: BASOPHILS # (AUTO) 0.1 K/uL (0.00-0.22); BASOPHILS % (AUTO) 0.4 % (0.0-2.0); EOSINOPHILS # (AUTO) 0.1 K/uL (0-0.4); EOSINOPHILS % (AUTO) 0.3 % (0.0-4.0); HEMATOCRIT 33.3 % (36-48); LYMPHOCYTES # (AUTO) 1.8 K/uL (2.5-16.5); MEAN CORPUSCULAR HEMOGLOBIN 25 pg (27-31); MEAN CORPUSCULAR HGB CONC 33 g/dL (33-37); MONOCYTES # (AUTO) 1.7 K/uL (0.8-1.0); MONOCYTES % (AUTO) 8.9 % (1.7-9.3); NEUTROPHILS # (AUTO) 15.9 K/uL (1.8-7.7); NEUTROPHILS % (AUTO) 81.4 % (42.2-75.2); PLATELET COUNT (AUTO) 453 K/uL (140-450); RED BLOOD CELL COUNT(AUTO) 4.44 MIL/uL (4.20-5.40); RED CELL DISTRIBUTION WIDTH 15.7 % (11.6-13.7); WHITE BLOOD COUNT (AUTO) 19.5 K/uL (4.8-10.8)
[2021-01-09] MEDS: NACL 0.9% 1,000 ML IV SCH (19:11)
[2021-01-09] MEDS: CLINDAMYCIN 300 MG in DEXTROSE 5% 50 ML IV ONE (19:12)
[2021-01-09 19:14] LABS: ALBUMIN 3.2 g/dL (3.4-5.0); ANION GAP 13.6 (8-16); CARBON DIOXIDE 24.1 mmol/L (21-32); CREATININE 0.6 mg/dL (0.6-1.3); POTASSIUM 3.7 mmol/L (3.5-5.1); TOTAL BILIRUBIN 0.5 mg/dL (0.0-1.0)
--- NOTE | 2021-01-09 19:18 | NUR ---
40/F SISSY FROM [facility]. PER EMS STAFF CALLED 911 STATING PATIENT HAD RIGHT EYE SWELLING SINCE YESTERDAY WORSENING TODAY, STAFF REPORTS GIVING TYLENOL, RIGHT EYE APPEARS RED AND SWOLLEN, YELLOW AND CLEAR DRAINAGE NOTED COMING FROM EYE. PATIENT TRACH TO VENT, NONVERBAL AND NONAMBULATORY AT BASELINE, GTUBE IN PLACE.
--- NOTE | 2021-01-09 19:30 | NUR ---
Pt report given to DAVID RASHEED. Transfer of care at this time.
[2021-01-09 20:16] LABS: APPEARANCE,URINE CLOUDY (CLEAR); COLOR,URINE YELLOW (YELLOW)
[2021-01-09 20:17] LABS: BILIRUBIN,URINE NEGATIVE (NEGATIVE); UGLUCOSE NEGATIVE (NEGATIVE)
[2021-01-09 20:18] LABS: BLOOD, URINE 3+ (NEGATIVE); PH,URINE 8.5 (5.0-9.0)
[2021-01-09 20:19] LABS: LEUKOCYTE ESTERASE ,URINE 4+ (NEGATIVE); NITRITE, URINE POSITIVE (NEGATIVE)
[2021-01-09 20:21] LABS: RBC,URINE 50-80 /HPF (0-5); WBC,URINE 80-100 /HPF (0-5)
[2021-01-09 20:22] LABS: TRIPLE PHOSPHATE CRYSTAL,UR 0-10 /HPF (None Seen)
[2021-01-09 23:33] VITALS: BP 111/72
--- NOTE | 2021-01-09 23:35 | NUR ---
Patient discharged with v/s stable. Written and verbal after care instructions given and explained. Patient verbalized understanding. Ambulance Transport with by caregiver. All questions addressed prior to discharge. Advised to follow up with PMD.
--- NOTE | 2021-01-10 22:21 | NUR ---
LAB CALLED AT THIS TIME. PT WAS GRAM POSITIVE COCCI.
== END 2021-01-09 23:35 | disposition home or self-care (01) ==
LOC: MED 17:59
DX: L03.213 Periorbital cellulitis (principal); N39.0 Urinary tract infection, site not specified; G40.909 Epilepsy, unspecified, not intractable, without status epilepticus; J44.9 Chronic obstructive pulmonary disease, unspecified; Z88.0 Allergy status to penicillin; Z88.1 Allergy status to other antibiotic agents; Z88.5 Allergy status to narcotic agent; Z86.73 Personal history of transient ischemic attack (TIA), and cerebral infarction without residual deficits; Z79.899 Other long term (current) drug therapy; Z98.890 Other specified postprocedural states
CPT/HCPCS: 36415; 70481; 71045; 80053; 81001; 83605; 83880; 84484; 85025; 87040; 87086; 93005; 96365; 99285; J3490; J7030; Q0092; Q9967; 81002

== ENCOUNTER 2021-03-19 18:28 | Emergency (ER) | payer OTHER ==
[~2021-03-19] VITALS: Ht 152.4 cm; Wt 56.7 kg
[2021-03-19 18:32] VITALS: BP 122/80
[2021-03-19] MEDS ORDERED: LIDOCAINE MPF 1% 10 MG/ML VIAL INJ ONE (18:50)
--- NOTE | 2021-03-19 19:32 | NUR ---
NO NURSING CARE GIVEN-Patient discharged with v/s stable. Written and verbal after care instructions given and explained. REPORT GIVEN TO RN PAU Patient alert, oriented and verbalized understanding of instructions. Ambulance Transport with by caregiver. All questions addressed prior to discharge. ID band removed. Patient advised to follow up with PMD.NO Rx given. Patient educated on indication of medication including possible reaction and side effects. Opportunity to ask questions provided and answered.
[2021-03-19 19:37] VITALS: BP 121/75
== END 2021-03-19 19:32 | disposition home or self-care (01) ==
LOC: MED 18:28
DX: R22.32 Localized swelling, mass and lump, left upper limb (principal); J44.9 Chronic obstructive pulmonary disease, unspecified; E11.9 Type 2 diabetes mellitus without complications; Z86.73 Personal history of transient ischemic attack (TIA), and cerebral infarction without residual deficits; Z79.4 Long term (current) use of insulin; Z88.0 Allergy status to penicillin; Z88.1 Allergy status to other antibiotic agents; Z88.5 Allergy status to narcotic agent; Z79.899 Other long term (current) drug therapy
CPT/HCPCS: 99283; J2001

== ENCOUNTER 2022-05-06 15:13 | Inpatient (IN) | payer OTHER ==
[~2022-05-06] VITALS: Ht 152.4 cm; Wt 55.8 kg
[~2022-05-06 15:13] MED LIST changes: -DEXT1LOZ MM; +DEXT1LOZ11 MM; +TRAM-748 PO; -TRAM50TA1 PO
--- NOTE | 2022-05-06 15:13 | NUR ---
SISSY ALS TO ER BED 1
[2022-05-06 15:16] VITALS: BP 92/66
[2022-05-06 15:18] VITALS: BP 92/66
--- NOTE | 2022-05-06 15:18 | NUR ---
ADMITTING ED DX: ALOC; LOC AWAKE NON RESPONSIVE TO NAME; BREATH SOUNDS WHEEZE AND RALES BILATERAL' PATIENT UNABLE TO MAINTAIN ADEQUATE VOLUMES AND RATE ON AMITTING VENTILATOR SETTINGS OF SIMV RATE6 VT450 PS6 P5 32%; CHANGED TO AC MODE RATE16 VT450 P5 32% NOTED
--- NOTE | 2022-05-06 15:20 | NUR ---
ASSUMED PATIENT CARE, TRIAGE ASSESSMENT COMPLETED.
[2022-05-06] MEDS ORDERED: NACL 0.9% 500 ML IV ONE (15:35)
[2022-05-06] MEDS ORDERED: ACETAMINOPHEN 650 MG SUPP RC ONE (15:35)
[2022-05-06 16:18] LABS: HEMATOCRIT 26.6 % (36-48); MEAN CORPUSCULAR HEMOGLOBIN 21 pg (27-31); MEAN CORPUSCULAR HGB CONC 30 g/dL (33-37); MEAN CORPUSCULAR VOLUME 68.5 fL (80-94); PLATELET COUNT (AUTO) 564 K/uL (140-450); RED BLOOD CELL COUNT(AUTO) 3.88 MIL/uL (4.20-5.40); RED CELL DISTRIBUTION WIDTH 19.2 % (11.6-13.7)
--- NOTE | 2022-05-06 16:23 | NUR ---
NURSING ASSESSMENT COMPLETED. PATIENT ON HOGSHEAD HOOPER, TRACH TO VENT AT AC 16, FIO2 32%, TV 450, PEEP 5.
[2022-05-06 16:25] LABS: ANION GAP 11.3 (8-16); ASPARTATE AMINOTRANSFERASE 25 U/L (15-37); CARBON DIOXIDE 28.9 mmol/L (21-32); CHLORIDE 98 mmol/L (98-107); CREATININE 0.6 mg/dL (0.6-1.3); GFR ARICAN-AMERICAN 143 mL/min (>90); GLUCOSE 260 mg/dL (74-106); POTASSIUM 4.2 mmol/L (3.5-5.1); SODIUM SERUM 134 mmol/L (136-145); TOTAL BILIRUBIN 0.3 mg/dL (0.0-1.0); UREA NITROGEN, BLOOD 32 mg/dL (7-18)
[2022-05-06 16:31] LABS: ALBUMIN 2.9 g/dL (3.4-5.0)
[2022-05-06 17:00] LABS: APPEARANCE,URINE CLEAR (CLEAR); BILIRUBIN,URINE NEGATIVE (NEGATIVE); BLOOD, URINE 2+ (NEGATIVE); COLOR,URINE YELLOW (YELLOW); LEUKOCYTE ESTERASE ,URINE 3+ (NEGATIVE); NITRITE, URINE NEGATIVE (NEGATIVE); PH,URINE 7.5 (5.0-9.0); UGLUCOSE NEGATIVE (NEGATIVE)
[2022-05-06 17:01] LABS: WHITE BLOOD COUNT (AUTO) 27.2 K/uL (4.8-10.8)
[2022-05-06 17:05] LABS: LYMPHOCYTES % (MANUAL) 5 % (20-46); MONOCYTES % (MANUAL) 3 % (5-12)
[2022-05-06 17:27] LABS: RBC,URINE TOO NUMEROUS TO COUN /HPF (0-5); WBC,URINE TOO MANY TO COUNT /HPF (0-5)
[2022-05-06 17:28] LABS: TRICHOMONAS,URINE None Seen /HPF (None Seen); YEAST,URINE None Seen /HPF (None Seen)
[2022-05-06] MEDS ORDERED: CEFEPIME 1,000 MG in DEXTROSE 5% 50 ML IV ONE (17:30)
[2022-05-06] MEDS ORDERED: VANCOMYCIN 1,000 MG in DEXTROSE 5% 250 ML IV ONE (17:30)
[2022-05-06] MEDS ORDERED: NACL 0.9% 1,000 ML IV ONE (17:55)
[2022-05-06] MEDS ORDERED: CEFEPIME 1,000 MG VIAL ONE (18:28)
[2022-05-06] MEDS ORDERED: VANCOMYCIN 1,000 MG VIAL ONE (18:28)
[2022-05-06 19:00] VITALS: BP 122/79
--- NOTE | 2022-05-06 19:00 | NUR ---
PT NO LONGER TOLERATING AC/VC MODE. SWITCHED TO PC 26,RR16, PEEP 5, FIO2 30%. PT DAGOBERTO WELL.
[2022-05-06] MEDS ORDERED: ALBUTEROL 0.083% 2.5 MG/3 ML NEBU INH ONE (19:05)
--- NOTE | 2022-05-06 19:23 | NUR ---
ENDORSED CARE TO SOFTWARE ENGINEERING SPECIALIST RNJEANETH.
--- NOTE | 2022-05-06 19:45 | NUR ---
41yo F from [facility] to be admitted for sepsi, UTI. Pt is awake and alert, eyes open. Pt is nonverbal, which is baseline. On vent via trache, AC, FIO2 30%, Rate 16, PEEP 5. Gtube intact . VS stable. Afebrile at this time. Waiting on bed assignment.
[2022-05-06] MEDS ORDERED: ONDANSETRON 4 MG/2 ML VIAL IVP PRN (19:55)
[2022-05-06] MEDS ORDERED: HYDROcodone/APAP 5/325 MG 1 TAB TAB PO PRN (19:55)
[2022-05-06] MEDS ORDERED: MAG SULF 2000 MG/WATER PREMIX 50 ML IV PRN (19:55)
[2022-05-06] MEDS ORDERED: POTASSIUM CHLORIDE 10 MEQ TABER PO PRN (19:55)
[2022-05-06] MEDS ORDERED: VANCOMYCIN PER PHARMACY MC PRN (19:55)
[2022-05-06] MEDS ORDERED: MAGNESIUM OXIDE 400 MG TAB PO PRN (19:55)
[2022-05-06] MEDS ORDERED: MORPHINE SULFATE 4 MG/ML SYR IVP PRN (19:55)
[2022-05-06] MEDS ORDERED: ACETAMINOPHEN 325 MG TAB PO PRN (19:55)
[2022-05-06] MEDS: NACL 0.9% 1,000 ML IV SCH (19:55)
[2022-05-06] MEDS ORDERED: MULT-2246 PO (20:25)
[2022-05-06] MEDS ORDERED: LACT100C5 PO (20:25)
[2022-05-06] MEDS ORDERED: CALC1TAB72 PO (20:25)
[2022-05-06] MEDS ORDERED: DOCU-2 PO (20:25)
[2022-05-06] MEDS ORDERED: MELA3TER PO (20:25)
[2022-05-06] MEDS ORDERED: METF-346 PO (20:25)
[2022-05-06] MEDS ORDERED: CALC-105 PO (20:25)
[2022-05-06] MEDS ORDERED: METO-251 PO (20:25)
[2022-05-06] MEDS ORDERED: EPOE10004 IJ (20:25)
[2022-05-06] MEDS ORDERED: VANCOMYCIN HCL 750 MG in DEXTROSE 5% 250 ML IV SCH (21:00)
--- NOTE | 2022-05-06 21:45 | NUR ---
2129 POST ABG RESULTS LOWERED RR FROM [address] TO [address]
--- NOTE | 2022-05-06 22:11 | NUR ---
Pt c small amount of green loose stool. Perineal care done. Diaper changed. Pt turned to Left side
[2022-05-06] MEDS: ALBUTEROL 0.083% 2.5 MG/3 ML NEBU INH PRN (23:36)
[2022-05-07] MEDS ORDERED: PIPERACILLIN/TAZOBACTAM 3.375 GM in DEXTROSE 5% 50 ML IV SCH ×2
[2022-05-07 01:09] VITALS: BP 105/70
[2022-05-07] MEDS ORDERED: ACETAMINOPHEN 650 MG SUPP RC ONE ×2 (03:59→04:00)
[2022-05-07 04:05] VITALS: BP 110/72
--- NOTE | 2022-05-07 04:41 | NUR ---
TOOK OVER CARE OF PT FROM BEN RASHEED. VERBAL REPORT UNOBTAINABLE FROM RN DUE TO ELOPING ON SHIFT.
--- NOTE | 2022-05-07 04:54 | NUR ---
PT RESTING WITH HOB ELEVATED. ON BEDSIDE MANAGER EMPLOYEE BENEFITS. PT ON TRACH TO VENT. SAT 99%. PT IS FEBRILE 101.1 RECTAL. TACHYCARDIAC 136. PT INCONT WITH DIAPER . PT COMMUNICATES WITH EYE BLINKING AND HAND GESTURES. SKIN WARM AND MOIST AND INTACT NO WOUNDS TO SKIN.
--- NOTE | 2022-05-07 05:23 | NUR ---
PAGED TO REPORT ELEVATED HEART RATE TO 140 WAITING FOR TO CALL BACK
--- NOTE | 2022-05-07 05:30 | NUR ---
DR. BURTON CALLED ABOUT ELEVATION OF HEART RATE AND GAEV AN ORDERED OF COOLING MEASURE, START METROPOLOL 50 MG HOME MEDS EARLY INSTEAD AT 09 AM BID, CONTINUINING FLUID 80 AND PRN TYLENOL SUPP 650 Q6HR
[2022-05-07] MEDS ORDERED: METOPROLOL 5 MG/5 ML VIAL ONE (05:42)
[2022-05-07] MEDS ORDERED: METOPROLOL 50 MG TAB ONE (05:44)
[2022-05-07] MEDS: VANCOMYCIN HCL 750 MG in DEXTROSE 5% 250 ML IV SCH ×2 (05:47→17:30)
[2022-05-07 05:52] LABS: BASOPHILS % (AUTO) 0.1 % (0.0-2.0); EOSINOPHILS % (AUTO) 0.1 % (0.0-4.0); HEMATOCRIT 21.9 % (36-48); LYMPHOCYTES # (AUTO) 1.2 K/uL (2.5-16.5); LYMPHOCYTES % (AUTO) 6.9 % (20.5-51.1); MEAN CORPUSCULAR HEMOGLOBIN 21 pg (27-31); MEAN CORPUSCULAR HGB CONC 30 g/dL (33-37); MEAN CORPUSCULAR VOLUME 68.5 fL (80-94); MONOCYTES # (AUTO) 1.3 K/uL (0.8-1.0); MONOCYTES % (AUTO) 7.6 % (1.7-9.3); NEUTROPHILS # (AUTO) 14.7 K/uL (1.8-7.7); NEUTROPHILS % (AUTO) 85.3 % (42.2-75.2); PLATELET COUNT (AUTO) 440 K/uL (140-450); RED CELL DISTRIBUTION WIDTH 18.2 % (11.6-13.7); WHITE BLOOD COUNT (AUTO) 17.3 K/uL (4.8-10.8)
[2022-05-07] MEDS: NACL 0.9% 1,000 ML IV SCH ×2 (05:54→20:55)
[2022-05-07] MEDS ORDERED: METOPROLOL 50 MG TAB GT STA (05:57)
[2022-05-07] MEDS ORDERED: ACETAMINOPHEN 650 MG SUPP RC PRN (06:00)
[2022-05-07 06:17] LABS: HEMOGLOBIN 6.6 g/dL (12.0-16.0)
[2022-05-07 06:26] LABS: ALBUMIN 2.6 g/dL (3.4-5.0); ANION GAP 13.6 (8-16); CARBON DIOXIDE 23.5 mmol/L (21-32); CREATININE 0.5 mg/dL (0.6-1.3); POTASSIUM 3.1 mmol/L (3.5-5.1); TOTAL BILIRUBIN 0.2 mg/dL (0.0-1.0)
--- NOTE | 2022-05-07 06:45 | NUR ---
DR BOND PAGED REGARDING HEMO OF 6.6 AM LAB. PENDING CALL BACK
--- NOTE | 2022-05-07 06:50 | NUR ---
RECEIVED ON A Intrinsic The[employer]SCAPE R860 VENTILATOR PLUGGED INTO RED OUTLET TOLERATING WELL WITHOUT ADVERSE REACTIONS NOTED TO A PORTEX #7 AIRWAY SECURED WITH A VARUN TRACH TIE CUFF PRESSURE CHECKED NOTED AMBU BAG AT BEDSIDE STABLE GOOD CHEST RISE DEEP TRACHEAL SUCTION FOR MODERATE SEMI THICK YELLOW SECRETIONS AIRWAY SPUTUM CULTURE OBTAINED FORWARDED TO LAB
--- NOTE | 2022-05-07 07:24 | NUR ---
Report and continuation of care received from MALCOLM Marcum.
--- NOTE | 2022-05-07 07:24 | NUR ---
Received patient resting in semi-fowlers position with awake overnight monitor in place. Sz precautions in place. VSS. Vent in place. Patient with both eyes open. Bed locked in lowest position, side rails x 2.
--- NOTE | 2022-05-07 08:21 | NUR ---
Rectal temperature 100.8F; ice packs applied to bilateral groin
--- NOTE | 2022-05-07 08:30 | NUR ---
Patient will be admitted to care of Dr. Flores. Admited to Telemetry. Will go to room 127. Belongings list completed. Report to KATHYA Monsivais.
[2022-05-07] MEDS ORDERED: POTASSIUM CHLORIDE 20% 40 MEQ/15 ML UDC PO PRN (08:55)
--- NOTE | 2022-05-07 08:55 | NUR ---
RECEIVE BED BOUND PATIENT FROM ER NURSE THAT PATIENT COME FROM SNF WITH ALOC W/ CHRONIC RESPIRATORY FAILURE & DEPENDENT ON VENT (SET FIO2 30, PEEP 5) W/ TRACHEOSTOMY. PATIENT IS NONVERBAL BUT ABLE TO COMMUNITY HER PREFERENCE. ADMISSION DIAGNOSIS IS SEVERE SEPSIS W/ HX OF CEREBRAL PALSY, SEIZURE, HOSPITAL SECURITY OFFICER SHUNT, HTN, CVA W/ L. SIDE WEAKNESS, DM, ANEMIA. PATIENT IS ADMIT UNDER CARE OF DR. JACKSON W/ FULL CODE, ALLERGY TO CODEINE, PENICILLINS, CIPROFLOXACIN. PATIENT IS TUBE FEEDING IN SNF ON GLUCERNA, NO ACUTE SKIN ISSUE, IV AT MAXIMINO MIDLINE (?ONE LUMEN) INFUSING NS @80ML/HR. WILL CONTINUE TO MONITOR
--- NOTE | 2022-05-07 09:18 | NUR ---
PATIENT HAS BEEN SCREENED AND CATEGORIZED MODERATE NUTRITION RISK. PATIENT WILL BE SEEN WITHIN 3-5 DAYS OF ADMISSION. /05/[address] LISETH CAVAZ[address]
[2022-05-07] MEDS: DOCUSATE SODIUM 100 MG GELCAP PO SCH (09:35)
--- NOTE | 2022-05-07 11:00 | NUR ---
DC PLANNING ASSESSMENT COMPLETE PLEASE REFER TO ASSESSMENT FOR DETAILS TIMMY REYNOSO DC PLAN IS FOR PT TO RETURN TO [facility] ONCE PT IS MEDICALLY STABLE. Addendum: 05/08/22 at 0827 by June WIGGINS Amended: Links added.
[2022-05-07] MEDS: CEFEPIME 2,000 MG in DEXTROSE 5% 100 ML IV SCH (11:09)
[2022-05-07] MEDS: ALBUTEROL 0.083% 2.5 MG/3 ML NEBU INH PRN (11:20)
[2022-05-07 12:00] VITALS: BP 116/78
--- NOTE | 2022-05-07 12:15 | NUR ---
STABLE EQUAL CHEST RISE DEEP TRACHEAL SUCTION FOR COPIOUS THIN YELLOW SECRETIONS AIRWAY PATENT
[2022-05-07] MEDS: ALBUTEROL 0.083% 2.5 MG/3 ML NEBU INH SCH ×2 (14:22→19:00)
--- NOTE | 2022-05-07 14:22 | NUR ---
RESTING COMFORTABLY EQUAL CHEST RISE DEEP TRACHEAL SUCTION FOR MODERATE THIN YELLOW SECRETIONS AIRWAY PATENT
--- NOTE | 2022-05-07 15:28 | NUR ---
RESTING WELL NO APPARENT DISTRESS NOTED GOOD CHEST RISE
[2022-05-07 16:00] VITALS: BP 130/78
--- NOTE | 2022-05-07 19:30 | NUR ---
RECEIVED REPORT FROM DAY SHIFT NURSE SUSANA FOR CONTINUITY OF CARE. PATIENT IS NON VERBAL WITH TRACH TO VENT. NO S/S OF RESPIRATORY DISTRESS. G-TUBE IN PLACE NO FEEDING. ALL SAFETY PRECAUTIONS ARE IN PLACE. CALL LIGHT IN REACH. WILL CONTINUE TO MONITOR.
[2022-05-07 20:00] VITALS: BP 131/67
--- NOTE | 2022-05-07 20:05 | NUR ---
GIVE REPORT TO PM SHIFT NURSE WHILE PATIENT REST IN BED. PICC LINE NURSE HERE FOR MIDLINE REPLACEMENT. BLOOD IS READY FOR TRANSFUSING. VANCO. TROUGH BELOW 20 AND IT'S OKAY TO GIVE VANCOMYCIN. PEG-TUBE PRESENT, PATIENT IS ON TRACH TO VENT FIO2 30, PEEP 5
[2022-05-07] MEDS: PANTOPRAZOLE 40 MG INJ VIAL IVP SCH (20:45)
--- NOTE | 2022-05-07 20:45 | NUR ---
ADMINISTERED SCHEDULED MEDICATION.
[2022-05-08] VITALS (9 sets, daily range): BP systolic 121–161; BP diastolic 70–119
[2022-05-08] MEDS: ALBUTEROL 0.083% 2.5 MG/3 ML NEBU INH SCH ×2 (01:07→20:01)
--- NOTE | 2022-05-08 01:50 | NUR ---
TRANSFUSED 1 UNIT PRBC. NO ADVERSE REACTION NOTED AT THIS TIME. V/S MONITORED AND RECORDED. PATIENT CLOSELY MONITORED.
[2022-05-08] MEDS: VANCOMYCIN HCL 750 MG in DEXTROSE 5% 250 ML IV SCH ×2 (05:31→16:39)
--- NOTE | 2022-05-08 05:31 | NUR ---
VANCOMYCIN ADMINISTERED PER MD ORDER.
[2022-05-08 05:40] LABS: BASOPHILS % (AUTO) 0.3 % (0.0-2.0); EOSINOPHILS % (AUTO) 0.4 % (0.0-4.0); HEMATOCRIT 26.3 % (36-48); HEMOGLOBIN 8.2 g/dL (12.0-16.0); LYMPHOCYTES % (AUTO) 8.8 % (20.5-51.1); MEAN CORPUSCULAR HEMOGLOBIN 22 pg (27-31); MEAN CORPUSCULAR HGB CONC 31 g/dL (33-37); MEAN CORPUSCULAR VOLUME 71.8 fL (80-94); MONOCYTES # (AUTO) 0.7 K/uL (0.8-1.0); MONOCYTES % (AUTO) 6.2 % (1.7-9.3); NEUTROPHILS # (AUTO) 9.7 K/uL (1.8-7.7); NEUTROPHILS % (AUTO) 84.3 % (42.2-75.2); PLATELET COUNT (AUTO) 296 K/uL (140-450); RED BLOOD CELL COUNT(AUTO) 3.66 MIL/uL (4.20-5.40); RED CELL DISTRIBUTION WIDTH 20.9 % (11.6-13.7); WHITE BLOOD COUNT (AUTO) 11.5 K/uL (4.8-10.8)
[2022-05-08 06:47] LABS: ALBUMIN 2.5 g/dL (3.4-5.0); ANION GAP 18.7 (8-16); CARBON DIOXIDE 19.1 mmol/L (21-32); CREATININE 0.4 mg/dL (0.6-1.3); MAGNESIUM 1.8 mg/dL (1.8-2.4); TOTAL BILIRUBIN 0.6 mg/dL (0.0-1.0)
[2022-05-08 07:18] LABS: POTASSIUM 2.8 mmol/L (3.5-5.1)
--- NOTE | 2022-05-08 07:27 | NUR ---
ENDORSED PATIENT TO DAY SHIFT NURSE FOR CONTINUITY OF CARE. PT STABLE.
--- NOTE | 2022-05-08 07:30 | NUR ---
RECEIVED REPORT FROM BONE TENDER NURSE, PTS VENT ALARMING, HYPEROXYGENATED PT TO 100%, SUCTION COMPLETED. MODERATES AMOUNT OF WHITE SECRETION. PT ON TELE MONITOR. ALL SAFETY MEASURES IN PLACE, CALL LIGHT WITHIN REACH.
[2022-05-08] MEDS: DOCUSATE SODIUM 100 MG GELCAP PO SCH (08:09)
--- NOTE | 2022-05-08 08:10 | NUR ---
UNABLE TO ADMINISTER COLACE, PT IS GTUBE. PT UNABLE TO SWALLOW AND UNABLE TO CRUSH MEDICATION
[2022-05-08] MEDS: PANTOPRAZOLE 40 MG INJ VIAL IVP SCH ×2 (08:20→20:57)
[2022-05-08] MEDS: NACL 0.9% 1,000 ML IV SCH ×2 (08:22→21:55)
[2022-05-08] MEDS: KCL 20 MEQ IN 100 mL PREMIX 200 ML IV PRN (10:12)
[2022-05-08] MEDS: CEFEPIME 2,000 MG in DEXTROSE 5% 100 ML IV SCH (10:12)
--- NOTE | 2022-05-08 10:25 | NUR ---
PRN POTASSIUM IV RUNNING AT 50 CC PER MD ORDER FOR POTASSIUM LEVEL OF 2.8. PT STABLE WITH NO ACUTE S/S OF DISTRESS. WASH CLOTHE PROVIDED, PT ABLE TO WIPE FACE WITH COOL WASH CLOTHE
--- NOTE | 2022-05-08 12:58 | NUR ---
PT HAS BEEN CLEANED, BAD BATH PREFORMED. SUCTIONING COMPLETED, COPIOUS AMOUNTS OF WHITE SECRETION. O2 SATURATION AT 100%. NO ACUTE S/S OF DISTRESS. ALL SAFETY MEASURES IN PLACE.
--- NOTE | 2022-05-08 17:14 | NUR ---
RT CALLED TO NOTIFY OF ALARM BEEPING, SUCTIONING COMPLETED BY RN. RT AT BEDSIDE.
--- NOTE | 2022-05-08 18:14 | NUR ---
ALL NEEDS HAVE BEEN MET THROUGHOUT THE SHIFT, ALL SAFETY MEASURES IN PLACE. VSS.
--- NOTE | 2022-05-08 19:38 | NUR ---
PATIENT AWAKE WITH EYES OPEN NON VERBAL. TRACH TO VENT. NO S/S OF RESPIRATORY DISTRESS. BREATHING EVEN UNLABORED. IVF NS INFUSING 80 ML/HR ON THE RIGHT UPPER ARM PICC LINE. G-TUBE IN PLACE. CALL LIGHT ON EASY REACH. WILL CONTINUE TO MONITOR PT.
[2022-05-09] VITALS (10 sets, daily range): BP systolic 119–151; BP diastolic 66–93
[2022-05-09] MEDS: ALBUTEROL 0.083% 2.5 MG/3 ML NEBU INH SCH ×4 (01:20→19:05)
[2022-05-09 05:59] LABS: BASOPHILS % (AUTO) 0.4 % (0.0-2.0); EOSINOPHILS # (AUTO) 0.1 K/uL (0-0.4); EOSINOPHILS % (AUTO) 1.7 % (0.0-4.0); HEMATOCRIT 23.4 % (36-48); HEMOGLOBIN 7.5 g/dL (12.0-16.0); LYMPHOCYTES # (AUTO) 1.2 K/uL (2.5-16.5); LYMPHOCYTES % (AUTO) 16.6 % (20.5-51.1); MEAN CORPUSCULAR HEMOGLOBIN 23 pg (27-31); MEAN CORPUSCULAR HGB CONC 32 g/dL (33-37); MEAN CORPUSCULAR VOLUME 71.6 fL (80-94); MONOCYTES # (AUTO) 0.8 K/uL (0.8-1.0); MONOCYTES % (AUTO) 11.3 % (1.7-9.3); NEUTROPHILS # (AUTO) 5.1 K/uL (1.8-7.7); PLATELET COUNT (AUTO) 395 K/uL (140-450); RED BLOOD CELL COUNT(AUTO) 3.27 MIL/uL (4.20-5.40); RED CELL DISTRIBUTION WIDTH 20.9 % (11.6-13.7); WHITE BLOOD COUNT (AUTO) 7.3 K/uL (4.8-10.8)
[2022-05-09] MEDS: VANCOMYCIN HCL 750 MG in DEXTROSE 5% 250 ML IV SCH ×2 (06:20→18:07)
[2022-05-09 06:21] LABS: ALBUMIN 2.4 g/dL (3.4-5.0); ANION GAP 15.7 (8-16); CREATININE 0.4 mg/dL (0.6-1.3); MAGNESIUM 1.6 mg/dL (1.8-2.4); TOTAL BILIRUBIN 0.4 mg/dL (0.0-1.0)
--- NOTE | 2022-05-09 06:25 | NUR ---
RECEIVED A CALL FROM LAB REPORTING CRITICAL LAB VALUE POTASSIUM 2.7. MEDICATION ADMINISTERED ORDERED.
[2022-05-09 06:38] LABS: POTASSIUM 2.7 mmol/L (3.5-5.1)
[2022-05-09] MEDS: KCL 20 MEQ IN 100 mL PREMIX 200 ML IV PRN ×2 (06:45→11:53)
--- NOTE | 2022-05-09 07:30 | NUR ---
RECEIVED ON A Viking Cold SolutionsSCAPE R860 VENTILATOR PLUGGED INTO RED OUTLET TOLERATING WELL WITHOUT ADVERSE REACTIOSN NOTED TO A PORTEX DFEN #7 AIRWAY SECURED WITH A VARUN TRACH TIE CUFF PRESSURE CHECKED NOTED AMBU BAG AT BEDSIDE STABLE RESPONSIVE TO LINING PRESSER VERBAL COMMANDS BY "BLINKING OF EYES" EQUAL CHEST RISE DEEP TRACHEAL SUCTION FOR MPDERATE THIN PALE YELLOW SECRETIONS AIRWAY PATENT
--- NOTE | 2022-05-09 07:36 | NUR ---
GAVE REPORT TO DAY SHIFT NURSE LYNNE FOR CONTINUITY OF CARE.
--- NOTE | 2022-05-09 09:00 | NUR ---
RESTING COMFORTABLY GOOD CHEST RISE DEEP TRACHEAL SUCTION FOR LARGE THIN PALE YELLOW SECRETIONS AIRWAY PATENT
[2022-05-09] MEDS: PANTOPRAZOLE 40 MG INJ VIAL IVP SCH ×2 (09:35→21:56)
[2022-05-09] MEDS: DOCUSATE SODIUM 100 MG GELCAP PO SCH (09:35)
[2022-05-09] MEDS: NACL 0.9% 1,000 ML IV SCH ×2 (10:25→22:35)
[2022-05-09] MEDS: CEFEPIME 2,000 MG in DEXTROSE 5% 100 ML IV SCH (11:25)
--- NOTE | 2022-05-09 12:40 | NUR ---
GOOD CHEST RISE DEEP TRACHEAL SUCTION FOR LARGE THIN PALE YELLOW SECRETIONS AIRWAY PATENT
--- NOTE | 2022-05-09 14:38 | NUR ---
PT. ADMITTED WITH LOW LISA SCALE AT HIGH RISK, CONTINUE TO FOLLOW PRESSURE INJURY PREVENTION INTERVENTIONS. -POSITIONING: TURN AND REPOSITION PATIENT Q 2H OR SOONER USE PILLOWS TO KEEP BONY PROMINENCES FROM DIRECT CONTACT WITH SURFACES USE REPOSITIONING WEDGES TO PROVIDE 30-DEGREE ANGLE FOR SIDE LYING POSITIONS OFFLOADING OR FOAM DRESSING TO ALL TUBING TO PREVENT MEDICAL DEVICES RELATED PRESSURE INJURY -RE-EVALUATING AND MANAGING INCONTINENCE MONITOR SKIN CONDITION DURING POSITION CHANGE DO NOT MASSAGE REDNESS, BONY PROMINENCES FREQUENT LINDA-CARE AND PROVIDE BARRIER CREAMS PRN IF SOILING MOISTURE CONTROL BY OFFER BED MENA/URINAL /ABSORBENT PAD TO WICK AND HOLD MOISTURE KEEP SKIN DRY AND PROTECT FROM FRICTION -MANAGE FRICTION/SHEAR/MOBILITY KEEP HOB AT THE LOWEST LEVEL OF ELEVATION NO MORE THAN 30 DEGREE UNLESS OTHERWISE CONTRAINDICATED USE LIFT SHEET OR TRANSFER DEVICE TO MOVE PATIENT AND PREVENT LATERAL SHEER. PROTECT HEELS, ELBOWS BONY PROMINENCES WITH SKIN BERRIES OR FOAM DRESSING IF EXPOSED TO FRICTION OFFLOAD BILATERAL HEELS BY PLACING PILLOWS UNDER CALVES AT ALL TIMES, UNLESS OTHERWISE CONTRAINDICATED -PRESSURE REDISTRIBUTION SURFACE THERAPY ARJUN ISOFLEX MATTRESS -NUTRITION: PLEASE FOLLOW RD RECOMMENDATIONS AND OFFER NUTRITION SUPPLEMENTS IF ORDERED. PLEASE CONTACT WOUND CARE NURSE FOR ANY QUESTION AND CHANGE OF WOUND CONDITION.
--- NOTE | 2022-05-09 15:08 | NUR ---
STABLE EQUAL CHEST RISE DEEP TRACHEAL SUCTION FOR LARGE THIN PA;E YELLOW SECRETIONS AIRWAY PATENT
--- NOTE | 2022-05-09 17:34 | NUR ---
DC PLANNING: RECEIVED A CALL FROM DR JACKSON STATED TO HOLD THE DC BECAUSE OF LOW H/H AND TO ORDER STOOL OB PLACE THE [facility] TRANSPORT WILL CALL AND NOTIFIED ESPERANZA APPLE NURSE AND TODD SEALS. Addendum: 05/10/22 at 1500 by Yvonne Foss RN DC PLANNING: PER DR JACKSON OK TO DC PATIENT BACK TO THE [facility]. CALLED [facility] SPOKE WITH DAYAN , PROVIDED THE AUTH FOR [facility] [id number] AND FOR TRANSPORT [id number] CM TO FOLLOW Addendum: 05/10/22 at 1534 by SABRINA DUMONT CM DC SHERRI PEREZ: RECEIVED ORDER TO DISCHARGE PT BACK TO THE [facility]. THE [facility] LOCATED AT [address] [place] [id number] SPOKE WITH TODD AND WAS INFORMED PT WAS ACCEPTED BACK AND WILL BE GOING TO ROOM 7-C UNDER THE CARE OF DR HUYNH [facility] AUTH#[id number]. SET UP TRANSPORTATION WITH [facility] FOR TRACH-VENT WITH DEEP SUCTION. FOR A 1700 YARD SWITCHER TIME. TRANSPORT AUTH#[id number]. NURSE CATHLEEN AND BROTHER CRISTO CALLED AND INFORMED OF THE ABOVE INFORMATION.
--- NOTE | 2022-05-09 19:30 | NUR ---
RECEIVED REPORT FROM DAY SHIFT NURSE LYNNE FOR CONTINUITY OF CARE. PATIENT IS A&O X1. PATIENT IS ON TRACH TO VENT, BREATHING IS NORMAL WITH SYMMETRICAL RISE AND FALL OF CHEST. IV IS A DOUBLE LUMEN MIDLINE IN THE MAXIMINO; RUNNING NS AT 80. PATIENT IS AWAKE (ABLE TO FOLLOW WITH EYES) LYING SEMI-FOWLERS IN BED. BED IS IN LOWEST POSITION, WHEELS LOCKED, CALL LIGHT IN PLACE. WILL CONTINUE TO OBSERVE PATIENT.
[2022-05-09] MEDS: cefTAZidime 500 MG in DEXTROSE 5% 50 ML IV SCH (21:00)
[2022-05-09] MEDS ORDERED: cefTAZidime 2,000 MG in DEXTROSE 5% 100 ML IV SCH (21:00)
[2022-05-10] VITALS: BP 151/77
--- NOTE | 2022-05-10 01:40 | NUR ---
MESSAGED MINT WAFER DEPOSITOR PHYSICIAN, DR. BOND, FOR TUBE FEEDING ORDER FOR PATIENT. DR. BOND SAID IT WAS OKAY TO START PATIENT ON THE SAME FEEDING [facility] HAD PATIENT ON. GLUCERNA 1.2 50CC X20HR W/ WATER FLUSH 300CC Q8HR. ORDER WAS PUT IN. NOTICED PATIENT HAD A DISCOLORED LUMP ON THE LEFT UPPER ARM BY THE ARM PIT. LUMP IS BULGING FROM ARM AND APPEARS TO BE BLACK AND PURPLE IN COLOR. PHOTO WAS TAKEN AND WOUND CONSULT WAS PUT IN. WILL CONTINUE TO OBSERVE PATIENT.
[2022-05-10] MEDS: ALBUTEROL 0.083% 2.5 MG/3 ML NEBU INH SCH ×3 (03:19→13:15)
--- NOTE | 2022-05-10 03:32 | NUR ---
CONSUMER MARKETING MANAGER ILIANA BROUGHT A BOTTLE OF GLUCERNA 1.2 TO THE UNIT. STARTED PATIENT'S TUBE FEEDING. WHILE ADMINISTERING TUBE FEEDING; NOTICED PATIENT'S TONGUE WAS YELLOWISH-WHITE COLOR. PROVIDED ORAL CARE TO PATIENT WITH THE ASSISTANCE OF NURSE CRISTO AND RESPIRATORY THERAPIST AUSTIN. YELLOWISH-WHITE COLOR STARTED COMING OFF. MOISTURIZER WAS ALSO APPLIED TO PATIENT'S LIPS. PATIENT TOLERATED ORAL CARE WELL AND WAS COOPERATIVE FOLLOWING COMMANDS. WILL CONTINUE TO OBSERVE PATIENT.
[2022-05-10 04:00] VITALS: BP 137/68
[2022-05-10 04:41] LABS: BASOPHILS % (AUTO) 0.5 % (0.0-2.0); EOSINOPHILS # (AUTO) 0.2 K/uL (0-0.4); EOSINOPHILS % (AUTO) 3.2 % (0.0-4.0); HEMATOCRIT 26.4 % (36-48); HEMOGLOBIN 8.3 g/dL (12.0-16.0); LYMPHOCYTES # (AUTO) 1.4 K/uL (2.5-16.5); MEAN CORPUSCULAR HEMOGLOBIN 22 pg (27-31); MEAN CORPUSCULAR HGB CONC 31 g/dL (33-37); MEAN CORPUSCULAR VOLUME 71.6 fL (80-94); MONOCYTES # (AUTO) 0.9 K/uL (0.8-1.0); MONOCYTES % (AUTO) 11.1 % (1.7-9.3); NEUTROPHILS # (AUTO) 5.2 K/uL (1.8-7.7); NEUTROPHILS % (AUTO) 67.2 % (42.2-75.2); PLATELET COUNT (AUTO) 479 K/uL (140-450); RED BLOOD CELL COUNT(AUTO) 3.69 MIL/uL (4.20-5.40); RED CELL DISTRIBUTION WIDTH 21.1 % (11.6-13.7); WHITE BLOOD COUNT (AUTO) 7.8 K/uL (4.8-10.8)
[2022-05-10] MEDS: cefTAZidime 500 MG in DEXTROSE 5% 50 ML IV SCH ×2 (04:43→12:51)
[2022-05-10 05:08] LABS: ALBUMIN 2.4 g/dL (3.4-5.0); ANION GAP 15.8 (8-16); CARBON DIOXIDE 18.9 mmol/L (21-32); CREATININE 0.4 mg/dL (0.6-1.3); MAGNESIUM 1.4 mg/dL (1.8-2.4); TOTAL BILIRUBIN 0.1 mg/dL (0.0-1.0)
[2022-05-10 05:11] LABS: POTASSIUM 2.7 mmol/L (3.5-5.1)
[2022-05-10] MEDS: VANCOMYCIN HCL 750 MG in DEXTROSE 5% 250 ML IV SCH (05:30)
[2022-05-10] MEDS: KCL 20 MEQ IN 100 mL PREMIX 200 ML IV PRN (05:35)
--- NOTE | 2022-05-10 05:52 | NUR ---
RECEIVED CRITICAL LAB OF POTASSIUM 2.7 FROM [facility] AT 0511. MESSAGED DR. BOND OF CRITICAL LAB AT 0516, AND ADMINISTERED "K" RIDER 40MEQ ON PATIENT'S EMAR A PRN IF POTASSIUM LESS THAN 3.1. PATIENT'S TROPH WAS 22.2; NOTIFIED PHARMACIST LEWIS OF TROPH LEVEL. LEWIS SAID NOT TO ADMINISTER VANCO, AND HE WILL CALL BACK WITH NEW INSTRUCTIONS ON VANCO. PENDING MESSAGE FROM DR. BOND ON POTASSIUM AND CALL BACK FROM PHARMACIST LEWIS ON VANCO. WILL CONTINUE TO OBSERVE PATIENT.
--- NOTE | 2022-05-10 07:18 | NUR ---
ENDORSED TO DAY SHIFT NURSE LETITIA FOR CONTINUITY OF CARE. PATIENT IS STABLE.
[2022-05-10 08:00] VITALS: BP 143/73
[2022-05-10] MEDS: PANTOPRAZOLE 40 MG INJ VIAL IVP SCH (09:10)
[2022-05-10] MEDS: DOCUSATE SODIUM 100 MG GELCAP PO SCH (09:10)
[2022-05-10 12:00] VITALS: BP 154/93
[2022-05-10] MEDS: NACL 0.9% 1,000 ML IV SCH (12:00)
--- NOTE | 2022-05-10 16:22 | NUR ---
05/10/22 INITIAL ASSESSMENT COMPLETED PLEASE REFER TO NUTRITION ASSESSMENT UNDER CARE ACTIVITY FOR ESTIMATED NUTRITIONAL NEEDS. 1. RECOMMEND GLUCERNA 1.2 @50 ML/HR, FWF 150 ML Q6H 2. RECOMMEND PROSOURCE BID -PROSOURCE BID WILL PROVIDE 120 KCALS AND 30 GRAM PROTEIN -WITH PROSOURCE BID, PT WILL RECEIVE 1200 ML TOTAL VOLUME, 1560 KCALS, 102 G PROTEIN, 1566 ML FREE WATER, MEETING 100% ESTIMATED CALORIE AND PROTEIN NEEDS 3. MONITOR GASTRIC RESIDUALS AND LAB VALUES. 4. RD TO FOLLOW-UP 2-3 DAYS, HIGH RISK REVIEWED BY LISETH CAVAZOS RD
[2022-05-10] MEDS ORDERED: INSULIN LISPRO 100 UNITS/ML VIAL SUBQ ONE (16:40)
[2022-05-10] MEDS ORDERED: VANCOMYCIN 1,000 MG in DEXTROSE 5% 250 ML IV SCH (18:00)
--- NOTE | 2022-05-11 08:31 | NUR ---
WOUND CONSULT NOT DONE. PT DISCHARGED.
== END 2022-05-10 16:55 | DRG 720 ==
LOC: MED 15:13 → MTU 19:57 → MMU 05-07 11:31
PROVIDERS: ADMIT Hospitalist; ATTEND Student in an Organized Health Care Education/Training Program
PROC: 5A1945Z Respiratory Ventilation, 24-96 Consecutive Hours (ICD-10-PCS; 2022-05-06)
PROC: 02HV33Z Insertion of Infusion Device into Superior Vena Cava, Percutaneous Approach (ICD-10-PCS; 2022-05-06)
PROC: B548ZZA Ultrasonography of Superior Vena Cava, Guidance (ICD-10-PCS; 2022-05-06)
PROC: 30233N1 Transfusion of Nonautologous Red Blood Cells into Peripheral Vein, Percutaneous Approach (ICD-10-PCS; principal; 2022-05-07)
DX: A41.9 Sepsis, unspecified organism (principal); J96.21 Acute and chronic respiratory failure with hypoxia; G93.41 Metabolic encephalopathy; E44.0 Moderate protein-calorie malnutrition; J96.10 Chronic respiratory failure, unspecified whether with hypoxia or hypercapnia; Z99.11 Dependence on respirator [ventilator] status; Z93.0 Tracheostomy status; N39.0 Urinary tract infection, site not specified; G40.909 Epilepsy, unspecified, not intractable, without status epilepticus; Z20.822 Contact with and (suspected) exposure to COVID-19; R13.10 Dysphagia, unspecified; D50.9 Iron deficiency anemia, unspecified; G80.9 Cerebral palsy, unspecified; Z88.1 Allergy status to other antibiotic agents; Z88.0 Allergy status to penicillin; Z88.8 Allergy status to other drugs, medicaments and biological substances; Z79.899 Other long term (current) drug therapy; Z83.3 Family history of diabetes mellitus; Z93.1 Gastrostomy status; Z98.2 Presence of cerebrospinal fluid drainage device; Z68.24 Body mass index [BMI] 24.0-24.9, adult
CPT/HCPCS: 36415; 36600; 71045; 80053; 80202; 81001; 82272; 82803; 83605; 83735; 84484; 85025; 86886; 86900; 86901; 86920; 87040; 87070; 87081; 87086; 87205; 89220; 94002; 94003; 94640; 96361; 96365; 96368; 99291; C9113; J0692; J0713; J1644; J2270; J3370; J3480; J3490; J7060; J7613; P9016; Q0092

== ENCOUNTER 2022-08-30 14:29 | Inpatient (IN) | payer OTHER ==
[2022-08-30] VITALS (8 sets, daily range): BP systolic 114–115; BP diastolic 72–91; PULSE 72–97; RESP 14–24; TEMP 97.9–98.8; O2SAT 100
[~2022-08-30] VITALS: Ht 142.2 cm; Wt 59.0 kg
--- NOTE | 2022-08-30 13:53 | NUR ---
RECEIVED PT VIA AMBU BAG WITH TRACH PORTEX 7. PLACED PT ON VENTILATOR WITH PREVIOUS SETTINGS PROVIDED AC/VC 450 RR14 +5 50%FIO2. SXN SET UP. VENT ALARMS ARE SET AND AUDIBLE TO ENVIRONMENT, BREAK IS ON, PLUGGED INTO RED OUTLET AND AMBU BAG IS AT PT BEDSIDE. PT HAS COURSE BS WITH GOOD CHEST RISE. THICK MOD WHITE SECRETIONS, NO DISTRESS NOTED AT THIS TIME PT SATURATION 99%. WILL CONTINUE TO MONITOR PT THROUGHOUT SHIFT.
[~2022-08-30 14:29] MED LIST changes: -ACET-2619 PO; -ASCO500T95 PO; -ATI.5 GT; +CALC-105 PO; +CALC1TAB72 PO; -DEXT1LOZ11 MM; +DOCU-2 PO; +EPOE10004 IJ; -FAMO-90 GT; -HYDR-5122 GT; +LACT100C5 PO; -LACT500C2 GT; +MELA3TER PO; +METF-346 PO; +METO-251 PO; +MULT-2246 PO; -OSC500 GT; -PRON INH; -TRAM-748 PO; -[UNRECOGNIZED DRUG - CODE] IV; -[UNRECOGNIZED DRUG - CODE] PO
[2022-08-30] MEDS ORDERED: NACL 0.9% 1,000 ML IV ONE (14:40)
[2022-08-30] MEDS ORDERED: LORazepam 2 MG/ML VIAL ONE (14:40)
[2022-08-30] MEDS ORDERED: LORazepam 2 MG/ML VIAL IVP ONE (14:40)
--- NOTE | 2022-08-30 14:53 | NUR ---
PT BIB [facility] FROM [facility] C/O SEIZURE. PT HAD 3 WITNESSED TONIC CLONIC SEIZURE LASTING APPROX 1 MINUTE. RECEIVED 5MG VERSED INH MACHINE SIZER BY MEDICS. ON ARRIVAL PT TRACH TO VENT BEING BAGGED BVM. RT AT BEDSIDE TO PLACE ON VENT. PLACED ON BEDSIDE MONITOR. IV INSERTED TO RIGHT FA #[phone].
[2022-08-30 15:07] LABS: BASOPHILS % (AUTO) 0.5 % (0.0-2.0); EOSINOPHILS # (AUTO) 0.1 K/uL (0-0.4); EOSINOPHILS % (AUTO) 0.9 % (0.0-4.0); HEMATOCRIT 34.3 % (36-48); LYMPHOCYTES % (AUTO) 26.6 % (20.5-51.1); MEAN CORPUSCULAR HEMOGLOBIN 23 pg (27-31); MEAN CORPUSCULAR HGB CONC 32 g/dL (33-37); MEAN CORPUSCULAR VOLUME 72.7 fL (80-94); MONOCYTES # (AUTO) 0.9 K/uL (0.8-1.0); MONOCYTES % (AUTO) 12.1 % (1.7-9.3); NEUTROPHILS # (AUTO) 4.5 K/uL (1.8-7.7); NEUTROPHILS % (AUTO) 59.9 % (42.2-75.2); PLATELET COUNT (AUTO) 570 K/uL (140-450); RED BLOOD CELL COUNT(AUTO) 4.71 MIL/uL (4.20-5.40); RED CELL DISTRIBUTION WIDTH 17.7 % (11.6-13.7); WHITE BLOOD COUNT (AUTO) 7.4 K/uL (4.8-10.8)
[2022-08-30 15:32] LABS: ALBUMIN 3.3 g/dL (3.4-5.0); ANION GAP 13.2 (8-16); ASPARTATE AMINOTRANSFERASE 49 U/L (15-37); CARBON DIOXIDE 26.2 mmol/L (21-32); CHLORIDE 101 mmol/L (98-107); CREATININE 0.5 mg/dL (0.6-1.3); GFR ARICAN-AMERICAN 176 mL/min (>90); GLUCOSE 109 mg/dL (74-106); POTASSIUM 5.4 mmol/L (3.5-5.1); SODIUM SERUM 135 mmol/L (136-145); TOTAL BILIRUBIN 0.3 mg/dL (0.0-1.0); UREA NITROGEN, BLOOD 21 mg/dL (7-18)
[2022-08-30 15:33] LABS: PROTHROMBIN TIME 11.4 secs (10.8-13.4)
--- NOTE | 2022-08-30 15:54 | NUR ---
PATIENT WENT TO CT.
--- NOTE | 2022-08-30 16:08 | NUR ---
PATIENT BACK FROM CT
--- NOTE | 2022-08-30 16:10 | NUR ---
TRANSPORTED PT TO CT. NO COMPLICATIONS. PT @ THIS TIME IS BACK IN ER BED 10. NO DISTRESS NOTED . WILL CONTINUE TO MONITOR PT THROUGHOUT SHIFT.
[2022-08-30 16:13] LABS: APPEARANCE,URINE CLEAR (CLEAR); BILIRUBIN,URINE NEGATIVE (NEGATIVE); BLOOD, URINE 3+ (NEGATIVE); COLOR,URINE YELLOW (YELLOW); LEUKOCYTE ESTERASE ,URINE 3+ (NEGATIVE); NITRITE, URINE POSITIVE (NEGATIVE); PH,URINE 8.5 (5.0-9.0); UGLUCOSE NEGATIVE (NEGATIVE)
[2022-08-30] MEDS ORDERED: levETIRAcetam 1,000 MG in NACL 0.9% 100 ML IV ONE (16:40)
[2022-08-30 16:45] LABS: BARBITURATE, URINE NEGATIVE ng/ml (NEG <=200); BENZODIAZEPINE, URINE NEGATIVE ng/mL (NEG <=200); CANNABINOID, URINE NEGATIVE ng/mL (NEG <=50); COCAINE, URINE NEGATIVE ng/mL (NEG <=300)
[2022-08-30 16:46] LABS: OPIATE, URINE NEGATIVE ng/mL (NEG <=2000); PHENCYCLIDINE SCREEN,URINE NEGATIVE ng/mL (NEG <=25)
[2022-08-30 16:50] LABS: RBC,URINE 20-50 /HPF (0-5)
[2022-08-30] MEDS ORDERED: levETIRAcetam 100 MG/ML VIAL IV ONE (16:56)
[2022-08-30] MEDS ORDERED: cefTAZidime 2,000 MG in DEXTROSE 5% 100 ML IV ONE (17:00)
[2022-08-30] MEDS ORDERED: ETOMIDATE 20 MG/10 ML VIAL IVP ONE (17:45)
[2022-08-30] MEDS ORDERED: ROCURONIUM 50 MG/5 ML VIAL IV ONE (17:45)
--- NOTE | 2022-08-30 17:54 | NUR ---
INFLUENZA SWABBED AT THIS TIME
[2022-08-30] MEDS ORDERED: ONDANSETRON 4 MG/2 ML VIAL IVP PRN (18:30)
[2022-08-30] MEDS ORDERED: MAG SULF 2000 MG/WATER PREMIX 50 ML IV PRN (18:30)
[2022-08-30] MEDS ORDERED: KCL 20 MEQ IN 100 mL PREMIX 200 ML IV PRN (18:30)
[2022-08-30] MEDS: DEXT 5% /NACL 0.9% 1,000 ML IV SCH (18:49)
--- NOTE | 2022-08-30 19:15 | NUR ---
Pt report given to JESSICA RASHEED. Transfer of care at this time.
[2022-08-30] MEDS: LORazepam 2 MG/ML VIAL IVP SCH ×2 (20:18→22:04)
--- NOTE | 2022-08-30 20:30 | NUR ---
Patient will be admitted to care of Dr. hartley. Admited to Telemetry. Will go to room 122B. Belongings list completed. Report to Angeles RASHEED. Angeles RASHEED verbalized understanding and no further question.
[2022-08-30] MEDS ORDERED: PIPERACILLIN/TAZOBACTAM 2.25 GM in DEXTROSE 5% 50 ML IV SCH (21:00)
--- NOTE | 2022-08-30 21:36 | NUR ---
PT.'S BROTHER VY CONTACT NUMBER [phone]
--- NOTE | 2022-08-30 22:00 | NUR ---
bp 115 / 70 , pr 77 , rr 18 , o2 sat 100 % - will give sched ativan , will cont. to monitor
[2022-08-31] VITALS (16 sets, daily range): BP systolic 100–140; BP diastolic 60–93; PULSE 74–146; RESP 18–25; TEMP 97.4–102.1; O2SAT 97–100
--- NOTE | 2022-08-31 00:05 | NUR ---
bp 100/60 , pr 9 , rr 18 , o2 sat 100 % - will give sched . ativan , will cont. to monitor Addendum: 08/31/22 at 0348 by Angeles Moody RN THE A NUMBER 9 IN THE ABOVE NURSE' S NOTE IS AN ERROR ENTRY INSTEAD OF 92 - MARY GRACE
[2022-08-31] MEDS: LORazepam 2 MG/ML VIAL IVP SCH ×4 (00:17→07:02)
--- NOTE | 2022-08-31 02:11 | NUR ---
BP 135/80 , TN 92 , RR 20 , O2 SAT 100 % - WILL GIVE SCHED ATIVAN TIV , WILL CONT. TP MONITOR
--- NOTE | 2022-08-31 04:50 | NUR ---
BP 140/93 , RR 18 , GA 100 , O2 SAT 100 % - WILL GIVE SCHED ATIVAN TIV . WILL CONT. TO MONITOR .
[2022-08-31 05:26] LABS: ANION GAP 15.5 (8-16); CARBON DIOXIDE 18.1 mmol/L (21-32); CREATININE 0.5 mg/dL (0.6-1.3)
[2022-08-31 05:29] LABS: POTASSIUM 2.6 mmol/L (3.5-5.1)
[2022-08-31 05:31] LABS: BASOPHILS # (AUTO) 0.1 K/uL (0.00-0.22); BASOPHILS % (AUTO) 0.7 % (0.0-2.0); EOSINOPHILS # (AUTO) 0.1 K/uL (0-0.4); HEMATOCRIT 27.8 % (36-48); HEMOGLOBIN 9.2 g/dL (12.0-16.0); LYMPHOCYTES # (AUTO) 2.3 K/uL (2.5-16.5); LYMPHOCYTES % (AUTO) 25.8 % (20.5-51.1); MEAN CORPUSCULAR HEMOGLOBIN 24 pg (27-31); MEAN CORPUSCULAR HGB CONC 33 g/dL (33-37); MEAN CORPUSCULAR VOLUME 71.3 fL (80-94); MONOCYTES # (AUTO) 0.9 K/uL (0.8-1.0); MONOCYTES % (AUTO) 10.7 % (1.7-9.3); NEUTROPHILS # (AUTO) 5.4 K/uL (1.8-7.7); NEUTROPHILS % (AUTO) 61.8 % (42.2-75.2); PLATELET COUNT (AUTO) 530 K/uL (140-450); RED CELL DISTRIBUTION WIDTH 17.1 % (11.6-13.7); WHITE BLOOD COUNT (AUTO) 8.8 K/uL (4.8-10.8)
--- NOTE | 2022-08-31 06:13 | NUR ---
PT.'S IV NEEDLE HIGH RISK FOR INFILTRATION - SO RN TRIED TO RE INSERTED NEW IV SITE BUT FAILED - WILL SUGGESTING TO DR Davis JACKSON PICC LINE / MIDLINE . SUGGESTING TO DR JACKSON K+ SUPPLEMENT PER GT TUBE - WILL WAIT THE RESPONSE .
[2022-08-31] MEDS ORDERED: POTASSIUM CHLORIDE 20% 40 MEQ/15 ML UDC GT SCH ×2 (06:20→18:30)
--- NOTE | 2022-08-31 06:58 | NUR ---
K + CHLORIDE 40MEQ GIVEN THRU GT TUBE ORDERED .
[2022-08-31] MEDS: DEXT 5% /NACL 0.9% 1,000 ML IV SCH ×2 (07:00→19:30)
--- NOTE | 2022-08-31 07:00 | NUR ---
BP 110 / 70 , HR 102 , O2 SAT 100 % , RR 18 - WILL GIVE SCHED ATIVAN , WILL CONT. TO MONITOR .
--- NOTE | 2022-08-31 07:32 | NUR ---
ENDORSED TO KATHYA ARIAS TO REMINDS ZO JACKSON ABOUT THE MIDLINE/ PICC LINE - IF HE AGREE WITH IT . AND ALSO REMINDS DR. JACKSON ABOUT THE ATIVAN TIV Q2HRS IF STILL TO BE CONT. KATHYA ARIAS VERBALIZES UNDERSTANDING . ENDOSRED PT FOR CONT. OF CARE . Addendum: 08/31/22 at 0802 by Angeles Moody RN CHECKED 127
[2022-08-31] MEDS ORDERED: DEXTROSE 50% 50 ML SYR IVP PRN (08:50)
--- NOTE | 2022-08-31 08:50 | NUR ---
PATIENT HAS BEEN SCREENED AND CATEGORIZED HIGH NUTRITION RISK. PATIENT WILL BE SEEN WITHIN 1-2 DAYS OF ADMISSION. 08/31/22-09/01/22 [facility] REFERRAL/CONSULT RECEIVED FOR WOUNDS AND DIABETES ON 08/31/22. YAMILKA ALMENDARE[address] RD
[2022-08-31] MEDS ORDERED: levETIRAcetam 1,000 MG in NACL 0.9% 100 ML IV SCH (09:00)
--- NOTE | 2022-08-31 09:00 | NUR ---
PT AWAKE, RESTING IN BED, STABLE, NO SIGNS OF DISTRESS. IV TO LEFT HAND NOT WORKING. INFORMED .
[2022-08-31] MEDS: CALCIUM CARB/VIT-D 500 MG/200 IU 1 TAB PO SCH (09:37)
[2022-08-31] MEDS: METOPROLOL 50 MG TAB PO SCH ×2 (09:38→20:28)
[2022-08-31] MEDS ORDERED: CEFEPIME 1,000 MG in DEXTROSE 5% 50 ML IV SCH (10:00)
--- NOTE | 2022-08-31 10:18 | NUR ---
WOUND CARE EVALUATION NOTE: SKIN ASSESSMENT DONE WITH THIS 42 Y/O PT ADMITTED FROM [facility] [place] [facility] TO [facility] WITH INITIAL DX EPISODES OF TONIC-CLINIC SEIZURES. PAST MEDICAL HX INCLUDES CEREBRAL PALSY, CHRONIC HYPOXIC RESPIRATORY FAILURE, S/P TRACHEOSTOMY, AFIB, DM2, SEIZURES, HISTORY OF RISK INVESTIGATOR SHUNT, G-TUBE WOUND. ALL ABOVE INFORMATION OBTAINED FROM ADMISSION H&P. PT IS AWAKE. SKIN IS WARM AND DRY, BLE NO HAIR GROWTH, NO EDEMA. DORSAL PEDAL PULSES PRESENT AND NORMAL. CAPILLARY REFILLED < 2 SEC. X 10 TOES. INCONTINENT OF BOWEL. F/C PATENT WITH SMALL AMOUNT YELLOW COLOR URINE OUT PUT OBSERVED. PT. ADMITTED WITH LEFT UPPER ARM UN-KNOW ETIOLOGY BLOODY SKIN GROWTH, INDURATION TO MEDIAL ASPECT OF ARM, POSSIBLE ABSCESS. PLAN OF CARE DISCUSSED WITH PRIMARY RN ALESIA AND CHARGE NURSE MICHELL, RECOMMEND SOFT TISSUE ULTRASOUND. INTEGUMENTARY: -ORAL MEMBRANE PINK INTACT, LIPS, CHEEKS SKIN DRY, NO OPEN WOUNDS -TRACH SITE LINDA STOMA SKIN DRY AND CLEAN. SKIN INTACT. - GT SITE STOMA ULCERATION 0.5X0.5 AROUND STOMA SITE,PINK, SMALL AMOUNT SEROUS DRAINAGE, NO ODOR, LINDA STOMA SKIN WITH MASD RED, MOIST, RASHES, SKIN INTACT. -MOISTURE ASSOCIATED SKIN DAMAGE(MASD) TO: B/L GROINS, BUTTOCKS SKIN REDNESS, PEELING -OLD HEALED SCAR TISSUE TO SACROCOCCYX SKIN MOIST RECOMMENDATIONS: -LEFT UPPER ARM SOFT TISSUE ULTRASOUND.COVER WITH DRY DRESSING DAILY -APPLY Z GUARD TO B/L GROINS, BUTTOCKS BID AND PRN IF SOILING -CLEANSE GT STOMA ULCERATION WITH WOUND CLEANSING SOLUTION AND APPLY ALGINATE DRESSING, LINDA WOUND SKIN DUST WITH NYSTATIN POWDERS COVER WITH DRY DRESSING QD AND PRN IF SOILING -APPLY FOAM DRESSING TO SACROCOCCYX DAILY AND PRN IF SOILING PREVENTION -POSITIONING: TURN AND REPOSITION PATIENT Q 2H OR SOONER USE PILLOWS TO KEEP BONY PROMINENCES FROM DIRECT CONTACT WITH SURFACES USE REPOSITIONING WEDGES TO PROVIDE 30-DEGREE ANGLE FOR SIDE LYING POSITIONS OFFLOADING OR FOAM DRESSING TO ALL TUBING TO PREVENT MEDICAL DEVICES RELATED PRESSURE INJURY -RE-EVALUATING AND MANAGING INCONTINENCE MONITOR SKIN CONDITION DURING POSITION CHANGE DO NOT MASSAGE REDNESS, BONY PROMINENCES FREQUENT LINDA-CARE AND PROVIDE BARRIER CREAMS PRN IF SOILING MOISTURE CONTROL BY F/C AND ABSORBENT PAD TO WICK AND HOLD MOISTURE. MAY OBTAIN ORDER FOR FLEX SEAL, RECTAL BAG OR CACERES CATHETER PER PHYSICIAN ORDER UNLESS OTHERWISE CONTRAINDICATED KEEP SKIN DRY AND PROTECT FROM FRICTION -MANAGE FRICTION/SHEAR/MOBILITY KEEP HOB AT THE LOWEST LEVEL OF ELEVATION NO MORE THAN 30 DEGREES UNLESS OTHERWISE CONTRAINDICATED USE LIFT SHEET OR TRANSFER DEVICE TO MOVE PATIENT AND PREVENT LATERAL SHEER. CONSIDER TRAPEZE IF APPROPRIATE PROTECT HEELS, ELBOWS BONY PROMINENCES WITH SKIN BERRIES OR FOAM DRESSING IF EXPOSED TO FRICTION OFFLOAD BILATERAL HEELS BY PLACING PILLOWS UNDER CALVES AT ALL TIMES, UNLESS OTHERWISE CONTRAINDICATED -PRESSURE REDISTRIBUTION SURFACE THERAPY ARJUN ISOFLEX MATTRESS -NUTRITION: PLEASE FOLLOW RD RECOMMENDATIONS AND OFFER NUTRITION SUPPLEMENTS IF ORDERED.
--- NOTE | 2022-08-31 11:33 | NUR ---
DC PLANN[age] YRS OLD FEMALE PATIENT WAS ADMITTED FROM [facility] [place] WITH A DX OF SEIZURE, UTI. PATIENT HAS A HX OF CEREBRAL PALSY, RESP FAILURE TRACH TO VENT A-FIB,DM,SZ, AND PRODUCT ANALYST SHUNT. CXR SOWED POSSIBLE TRACE RIGHT PLEURAL EFFUSION. HEAD CT NO ACUTE INTRACRANIAL HEMORRHAGE. RAPID COVID TEST NEGATIVE. ADMINISTERED IVF, IV KEPPRA AND IV ABX CEFEPIME . CONSULTED WITH NEURO AND PULMO. DC PLAN TO RETURN TO [facility] WHEN STABLE. CM TO FOLLOW Addendum: 09/03/22 at 1448 by Yvonne Foss RN DC PLANNING: SEEN BY NEUROLOGIST ORDERED EEG AND CONTINUED KEPPRA IV. US OF UPPER EXT SHOWED ABSCESS VS MASS, SURGEON CONSULTED. URINE CULTURE SHOWED ESBL OF THE URINE. CONTINUED IV ABX CEFEPIME AND VANCOMYCIN. DC PLAN TO RETURN TO [facility] WHEN STABLE. CM TO FOLLOW Addendum: 09/05/22 at 1703 by Yvonne Foss RN DC PLANNING: PATIENT HAS A DC ORDER TO RETURN TO [facility], AUTH FOR TRANSPORT [id number] AND FOR [facility] [id number]. PATIENT CAN GO TO ROOM 7C # TO GIVE REPORT [phone] ARRANGED TRANSPORT WITH [facility] RU[facility] WORKER TIME 1900. NOTIFIED CHARGE NURSE . CM TO FOLLOW
[2022-08-31] MEDS: BLOOD GLUCOSE MONITORING 1 DEV DEV FS SCH ×3 (12:30→20:40)
[2022-08-31] MEDS: NYSTATIN POW 100 MU/GM 15 GM BTL TP SCH (13:00)
[2022-08-31] MEDS: ALGINATE ROPE MC SCH (13:26)
[2022-08-31] MEDS: GAUZE TP SCH (13:27)
--- NOTE | 2022-08-31 13:30 | NUR ---
PICC LINE PLACED AND VERIFIED BY RADIOLOGY.
--- NOTE | 2022-08-31 14:00 | NUR ---
08/31/22 RD INITIAL ASSESSMENT COMPLETED PLEASE REFER TO NUTRITION ASSESSMENT UNDER CARE ACTIVITY FOR ESTIMATED NUTRITIONAL NEEDS. 1. CONTINUE NPO DIET TOLERATED AND ONCE MEDICALLY APPROPRIATE START G-TUBE GLUCERNA 1.2 FOR PATIENT AT 20ML/HR AND INCREASE BY 20ML/HR Q4H TILL GOAL OF 45ML/HR IS REACHED WITH FWF OF 100ML Q6H. THIS WILL PROVIDE 1,296 CALORIES AND 66 GRAMS OF PROTEIN, MEETING AT LEAST 75% OF PATIENTS ESTIMATED NUTRITIONAL NEEDS. 2. RD RECOMMENDS MALIKA BID FOR WOUND WHICH WILL PROVIDE 160 CALORIES AND 5 GRAMS OF PROTEIN. 3. RD TO FOLLOW-UP 2-3 DAYS, HIGH RISK YAMILKA ALMENDAREZ RD
[2022-08-31] MEDS: CEFEPIME 1,000 MG in DEXTROSE 5% 50 ML IV SCH (14:56)
[2022-08-31] MEDS: Z-GUARD PASTE TP SCH (14:57)
[2022-08-31] MEDS: levETIRAcetam 1,000 MG in NACL 0.9% 100 ML IV SCH (15:00)
[2022-08-31] MEDS ORDERED: POTASSIUM CHLORIDE 10 MEQ TABER PO ONE (18:05)
[2022-08-31] MEDS: RIVAROXABAN 10 MG TAB GT SCH (18:44)
--- NOTE | 2022-08-31 19:45 | NUR ---
RECEIVED PT FROM MORNING SHIFT NURSE. PT IS APHASIC AND BEDBOUND. PT IS ON NPO DIET BUT WAITING FOR THE ORDER OF G-TUBE FEEDING OF DR. ROBERTSON. PT HAS CACERES CATHETER AND G-TUBE. PT IS ON TRACH TO VENT WITH FI02-25, VT-450, RATE OF 14 AND PEEP OF 5. PT HAS PICC LINE DOUBLE LUMEN ON LEFT UPPER ARM, SALINE LOCK. IT WAS STOP DUE TO MOTTLED SKIN ON LEFT ARM. DOCTOR WAS AWARE ON IT. PT HAS REDNESS ON PERINEAL AREA AND ON G-TUBE SITE. PT HAS ALSO 2 MASSES ON LEFT UPPER ARM AND BUMP ON TOP RIGHT SIDE OF THE HEAD. ALL SAFETY MEASURES IMPLEMENTED. BED IN LOW POSITION, BED WHEELS ON LOCK AND CALL LIGHT WITHIN REACH.
--- NOTE | 2022-08-31 19:45 | NUR ---
ENDORSED TO NIGHTSHIFT NURSE FOR CONTINUITY OF CARE. POTASSIUM ADMINISTERED THROUGH PT GTUBE, INFORMED NIGHT NURSE TO REDRAW LABS. RADIOLOGY AT BEDSIDE WITH PATIENT, TAKING ULTRASOUND OF UPPER EXTREMITIES (R/O DVT TO RIGHT ARM & ASSESS ABSCESS ON UPPER LEFT ARM). PT RESTING IN BED, HR HIGH 120'S (MD AWARE), REST OF VITALS WITHIN NORMAL RANGE.
--- NOTE | 2022-08-31 20:28 | NUR ---
SCHEDULED AND PRESCRIBED MEDICATION WAS GIVEN TO PT PER MD ORDER. ALL SAFETY MEASURES IMPLEMENTED. BED IN LOW POSITION, BED WHEELS ON LOCK AND CALL LIGHT WITHIN REACH.
--- NOTE | 2022-08-31 20:30 | NUR ---
NOTIFIED DR. ROBERTSON REGARDING PT TEMP OF 102.1 ORDER TYLENOL. ORDER WAS MADE AND CARRIED OUT.
--- NOTE | 2022-08-31 20:40 | NUR ---
PT BLOOD GLUCOSE IS 136. NO INSULIN COVERAGE NEEDED.
[2022-08-31] MEDS: ACETAMINOPHEN 650 MG/20.3 ML UDC PO PRN (21:25)
--- NOTE | 2022-08-31 21:25 | NUR ---
TYLENOL WAS GIVEN TO PT DUE TO TEMP OF 102.1 ALL SAFETY MEASURES IMPLEMENTED. BED IN LOW POSITION, BED WHEELS ON LOCK AND CALL LIGHT WITHIN REACH.
--- NOTE | 2022-08-31 22:00 | NUR ---
STATED G-TUBE FEEDING TO PT WITH GLUCERNA 1.2 50ML/HR WITH WATER FLUSH OF 200ML EVERY 6 HRS. ALL SAFETY MEASURES IMPLEMENTED. BED IN LOW POSITION, BED WHEELS ON LOCK AND CALL LIGHT WITHIN REACH.
[2022-09-01] VITALS (15 sets, daily range): BP systolic 92–140; BP diastolic 58–90; PULSE 82–141; RESP 21–23; TEMP 98.3–101.8; O2SAT 96–100
--- NOTE | 2022-09-01 | NUR ---
KAY(Voxie) NOTIFIED ME AND MIKOY THAT IF SHE CANT GET THE CLEARER VERSION OF THE ULTRASOUND IT WILL BE REPEATED AGAIN WITH MORE EXPERIENCE AIRDOX FITTER IN THE MORNING. SHE WILL GET THE BEST THAT SHE CAN.
[2022-09-01] MEDS: Z-GUARD PASTE TP SCH ×2 (01:01→13:00)
--- NOTE | 2022-09-01 01:44 | NUR ---
NOTIFIED DR. ROBERTSON REGARDING RESULT OF OF RIGHT UPPER ARM ULTRASOUND AND PT IS ON PAIN IN PICC LINE SITE AND HAS TENDERNESS ON IT. DR. ROBERTSON ORDER NOT TO RUN THE IV FLUID BUT GIVE IV MEDS, ORDER WAS MADE AND CARRIED OUT.
[2022-09-01] MEDS: CEFEPIME 1,000 MG in DEXTROSE 5% 50 ML IV SCH ×2 (02:18→15:21)
--- NOTE | 2022-09-01 02:18 | NUR ---
SCHEDULED AND PRESCRIBED MEDICATION WAS GIVEN TO PT PER MD ORDER. ALL SAFETY MEASURES IMPLEMENTED. BED IN LOW POSITION. BED WHEELS ON LOCK AND CALL LIGHT WITHIN REACH.
[2022-09-01] MEDS: levETIRAcetam 1,000 MG in NACL 0.9% 100 ML IV SCH ×2 (03:03→15:31)
[2022-09-01] MEDS: ACETAMINOPHEN 650 MG/20.3 ML UDC PO PRN ×4 (04:14→20:39)
--- NOTE | 2022-09-01 04:14 | NUR ---
PRN ACETAMENOPHEN WAS GIVEN TO PT DUE TEMP OF 101.8 ALL SAFETY MEASURES IMPLEMENTED. BED IN LOW POSITION. BED WHEELS ON LOCK AND CALL LIGHT WITHIN REACH.
[2022-09-01 05:25] LABS: BASOPHILS # (AUTO) 0.1 K/uL (0.00-0.22); BASOPHILS % (AUTO) 0.4 % (0.0-2.0); HEMATOCRIT 30.6 % (36-48); HEMOGLOBIN 9.6 g/dL (12.0-16.0); LYMPHOCYTES % (AUTO) 15.8 % (20.5-51.1); MEAN CORPUSCULAR HEMOGLOBIN 23 pg (27-31); MEAN CORPUSCULAR HGB CONC 32 g/dL (33-37); MEAN CORPUSCULAR VOLUME 72.8 fL (80-94); MONOCYTES # (AUTO) 1.3 K/uL (0.8-1.0); MONOCYTES % (AUTO) 10.2 % (1.7-9.3); NEUTROPHILS # (AUTO) 9.1 K/uL (1.8-7.7); NEUTROPHILS % (AUTO) 73.6 % (42.2-75.2); PLATELET COUNT (AUTO) 565 K/uL (140-450); WHITE BLOOD COUNT (AUTO) 12.4 K/uL (4.8-10.8)
[2022-09-01 05:28] LABS: ANION GAP 18.1 (8-16); CARBON DIOXIDE 15.7 mmol/L (21-32); CREATININE 0.7 mg/dL (0.6-1.3); POTASSIUM 3.8 mmol/L (3.5-5.1)
[2022-09-01] MEDS: BLOOD GLUCOSE MONITORING 1 DEV DEV FS SCH ×4 (06:35→20:50)
[2022-09-01] MEDS: INSULIN LISPRO SLIDING SCALE 100 UNITS/ML VIAL SUBQ PRN (06:36)
--- NOTE | 2022-09-01 06:36 | NUR ---
PT BLOOD GLUCOSE IS 170, HUMALOG INSULIN 2 UNITS WAS GIVEN TO PT.
--- NOTE | 2022-09-01 07:18 | NUR ---
PT IS STABLE. ENDORSED PT TO MORNING SHIFT NURSE FOR CONTINUITY OF CARE.
--- NOTE | 2022-09-01 07:31 | NUR ---
RECEIVED ON A [employer]J SolutionsSCAPE R860 VENTILATOR PLUGGED INTO RED OUTLET TOLERATING WELL WITHOUT ADVERSE REACTIONS NOTED TO A PORTEX DCT #7 AIRWAY SECURED WITH A VARUN TRACH TIE CUFF PRESSURE CHECKED NOTED AMBU BAG AT BEDSIDE LOC AWAKE AND ALERT RESPONSIVE TO PV DESIGN AND INSTALLATION TECHNICIAN VERBAL "NODDING OF HEAD" GOOD CHEST RISE DEEP TRACHEAL SUCTION FOR MODERATE THIN PALE YELLOW SECRETIONS AIRWAY PATENT
[2022-09-01] MEDS: DEXT 5% /NACL 0.9% 1,000 ML IV SCH ×2 (08:00→20:30)
--- NOTE | 2022-09-01 08:00 | NUR ---
received patient resting in bed, trach to vent with settings as ordered. tolerating well. noted patient is tachycardic. temp 99.9. will medicate as ordered. G-tube feeding running @ 50cc/hr. Landon catheter inplaced. seizure precaution maintained. will continue to monitor.
[2022-09-01] MEDS: METOPROLOL 50 MG TAB PO SCH ×2 (08:36→20:39)
[2022-09-01] MEDS: CALCIUM CARB/VIT-D 500 MG/200 IU 1 TAB PO SCH (08:36)
[2022-09-01] MEDS: LORazepam 2 MG/ML VIAL IVP PRN ×2 (08:37→15:21)
--- NOTE | 2022-09-01 10:50 | NUR ---
STABLE NO DISTRESS NOTED GOOD CHEST RISE AIRWAY PATENT
[2022-09-01] MEDS: GAUZE TP SCH (13:00)
[2022-09-01] MEDS: ALGINATE ROPE MC SCH (13:00)
--- NOTE | 2022-09-01 14:00 | NUR ---
patient G-tube site noted with excoriation and foul odorous scant drainage noted. Dr. Mendoza seen and assessed G-tube site. ordered for G-tube site culture. will continue current antibiotic therapy.
[2022-09-01] MEDS: NYSTATIN POW 100 MU/GM 15 GM BTL TP SCH (15:30)
[2022-09-01] MEDS ORDERED: VANCOMYCIN PER PHARMACY MC PRN (16:50)
[2022-09-01] MEDS: RIVAROXABAN 10 MG TAB GT SCH (17:20)
--- NOTE | 2022-09-01 18:39 | NUR ---
patient remained stable at this time. no seizure activity noted. medicated for elevated temp all throughout the shift. will continue to monitor.
[2022-09-01] MEDS ORDERED: VANCOMYCIN 1GM/DEXT 5% PREMIX 200 ML IV SCH (19:00)
--- NOTE | 2022-09-01 19:15 | NUR ---
RECEIVED PT FROM MORNING SHIFT NURSE. PT IS APHASIC AND BEDBOUND. PT HAS CACERES CATHETER AND G-TUBE RUNNING WITH GLUCERNA 1.2 50ML/HR WITH WATER FLUSH OF 200ML EVERY 6 HRS. PT IS ON TRACH TO VENT WITH FI02-25, VT-450, RATE OF 14 AND PEEP OF 5. PT HAS PICC LINE DOUBLE LUMEN ON LEFT UPPER ARM, RUNNING WITH NS AT TKO. PT HAS REDNESS ON PERINEAL AREA AND ON G-TUBE SITE. PT HAS ALSO 2 MASSES ON LEFT UPPER ARM AND BUMP ON TOP RIGHT SIDE OF THE HEAD. ALL SAFETY MEASURES IMPLEMENTED. BED IN LOW POSITION, BED WHEELS ON LOCK AND CALL LIGHT WITHIN REACH.
[2022-09-01] MEDS ORDERED: VANCOMYCIN 1,000 MG VIAL ONE (20:29)
--- NOTE | 2022-09-01 20:50 | NUR ---
PT BLOOD GLUCOSE IS 146. NO INSULIN COVERAGE NEEDED.
--- NOTE | 2022-09-01 23:00 | NUR ---
HANGED NEW G-TUBE FEEDING OF GLUCERNA 1.2 RUNNING AT 50ML/HR WITH WATER FLUSH OF 200ML EVERY 6 HRS. ALL SAFETY MEASURES IMPLEMENTED. BED IN LOW POSITION, BED WHEELS ON LOCK AND CALL LIGHT WITHIN REACH.
[2022-09-02] VITALS (14 sets, daily range): BP systolic 105–140; BP diastolic 60–78; PULSE 53–124; RESP 18–22; TEMP 97.4–100.5; O2SAT 92–100
[2022-09-02] MEDS: Z-GUARD PASTE TP SCH ×2 (01:15→14:44)
[2022-09-02] MEDS: CEFEPIME 1,000 MG in DEXTROSE 5% 50 ML IV SCH ×2 (01:18→14:49)
--- NOTE | 2022-09-02 01:18 | NUR ---
SCHEDULED AND PRESCRIBED MEDICATION WAS GIVEN TO PT PER MD ORDER. ALL SAFETY MEASURES IMPLEMENTED. BED WHEELS ON LOCK, BED IN LOW POSITION AND CALL LIGHT WITHIN REACH.
[2022-09-02] MEDS: levETIRAcetam 1,000 MG in NACL 0.9% 100 ML IV SCH ×2 (02:54→15:43)
--- NOTE | 2022-09-02 04:00 | NUR ---
MORNING CARE WAS DONE TO PT. CHANGED GOWN, LINENS, BLANKET. ORAL CARE AND SUCTION THE PT. CHANGED G-TUBE DRESSING. ALL SAFETY MEASURES IMPLEMENTED. BED WHEELS ON LOCK, BED IN LOW POSITION AND CALL LIGHT WITHIN REACH.
[2022-09-02 05:14] LABS: BASOPHILS % (AUTO) 0.2 % (0.0-2.0); EOSINOPHILS # (AUTO) 0.2 K/uL (0-0.4); EOSINOPHILS % (AUTO) 1.9 % (0.0-4.0); HEMATOCRIT 28.1 % (36-48); HEMOGLOBIN 9.1 g/dL (12.0-16.0); LYMPHOCYTES # (AUTO) 1.2 K/uL (2.5-16.5); MEAN CORPUSCULAR HEMOGLOBIN 23 pg (27-31); MEAN CORPUSCULAR HGB CONC 32 g/dL (33-37); MONOCYTES # (AUTO) 0.7 K/uL (0.8-1.0); MONOCYTES % (AUTO) 6.5 % (1.7-9.3); NEUTROPHILS % (AUTO) 79.4 % (42.2-75.2); PLATELET COUNT (AUTO) 406 K/uL (140-450); RED BLOOD CELL COUNT(AUTO) 3.91 MIL/uL (4.20-5.40); RED CELL DISTRIBUTION WIDTH 16.9 % (11.6-13.7); WHITE BLOOD COUNT (AUTO) 10.1 K/uL (4.8-10.8)
[2022-09-02 05:37] LABS: ANION GAP 15.7 (8-16); CREATININE 0.5 mg/dL (0.6-1.3); POTASSIUM 3.7 mmol/L (3.5-5.1)
[2022-09-02] MEDS: INSULIN LISPRO SLIDING SCALE 100 UNITS/ML VIAL SUBQ PRN ×3 (06:32→21:21)
[2022-09-02] MEDS: BLOOD GLUCOSE MONITORING 1 DEV DEV FS SCH ×4 (06:32→21:12)
--- NOTE | 2022-09-02 06:32 | NUR ---
PT BLOOD GLUCOSE IS 172. HUMALOG INSULIN 2 UNITS WAS GIVEN TO PT PER MD ORDER.
--- NOTE | 2022-09-02 07:25 | NUR ---
PT IS STABLE. ENDORSED PT TO MORNING SHIFT NURSE FOR CONTINUITY OF CARE.
--- NOTE | 2022-09-02 07:42 | NUR ---
GOT REPORT FROM THE NIGHT NURSE, PT AWAKE NON VERBAL, TRACK TO VENT NO SOB.[id number]
[2022-09-02] MEDS: DEXT 5% /NACL 0.9% 1,000 ML IV SCH ×2 (09:00→21:30)
[2022-09-02] MEDS: METOPROLOL 50 MG TAB PO SCH ×2 (09:25→20:45)
[2022-09-02] MEDS: CALCIUM CARB/VIT-D 500 MG/200 IU 1 TAB PO SCH (09:25)
[2022-09-02] MEDS: VANCOMYCIN 750 MG in NACL 0.9% 250 ML IV SCH ×2 (10:15→23:30)
--- NOTE | 2022-09-02 10:50 | NUR ---
SUCTIONED AND ORAL CARE GIVEN, PT OBEY COMMAND BUT NON VERBAL , PT TRIED TO BRUSH HER OWN TEETH. [email or web address]
[2022-09-02] MEDS: ALGINATE ROPE MC SCH (13:00)
[2022-09-02] MEDS: NYSTATIN POW 100 MU/GM 15 GM BTL TP SCH (13:00)
[2022-09-02] MEDS: GAUZE TP SCH (13:00)
--- NOTE | 2022-09-02 15:04 | NUR ---
DRESSING ON THE OSTEOMA AREA CHANGED AGAIN C/O ROMAINE WET.[email or web address]
--- NOTE | 2022-09-02 15:24 | NUR ---
09/02/22 RD FOLLOW UP COMPLETED. PLEASE REFER TO NUTRITION ASSESSMENT UNDER CARE ACTIVITY FOR ESTIMATED NUTRITIONAL NEEDS. 1. RECOMMEND DECREASING GLUCERNA 1.2 RATE TO 45 ML/HR TO OPTIMIZE NUTRITIONAL NEEDS -FWF 200 ML Q8H OR PER MD THIS WILL PROVIDE 1,296 CALORIES AND 65 GRAMS OF PROTEIN, MEETING AT LEAST 75% OF PATIENTS KCAL NEEDS AND 100% OF ESTIMATED PROTEIN NEEDS; ADEQUATE 2. RECOMMEND MALIKA BID FOR WOUND WHICH WILL PROVIDE 160 CALORIES AND 5 GRAMS OF PROTEIN. 3. RD TO FOLLOW-UP IN 2-3 DAYS PATIENT IS HIGH RISK. SMILEY SANCHEZ RD
[2022-09-02] MEDS: RIVAROXABAN 10 MG TAB GT SCH (17:08)
--- NOTE | 2022-09-02 19:34 | NUR ---
report given to the night nurse, pt stable no SOB ON THE TRACK TO VENT SETTING.[id number]
--- NOTE | 2022-09-02 20:35 | NUR ---
TACHYCARDIC ON V/S MONITOR , ASSESS PT - HOT TO TOUCH , TEMP RE CHECK 100.5 F - WILL MEDICATE FOR FEVER . BP 120/70 , HR 126 , RR 20 , O2 SAT 93 5 - WILL CONT. TO MONITOR , ON S2 PREC . Addendum: 09/02/22 at 2303 by Angeles Moody RN AT 2045 TYLENOL LIQ. THRU G TUBE GIVEN FOR FEVER WILL CONT. TO MONITOR . Addendum: 09/03/22 at 0437 by Angeles Moody RN at 2130 temp re check 98.7 f - will cont. to monitor
[2022-09-03] VITALS (13 sets, daily range): BP systolic 104–138; BP diastolic 60–82; PULSE 85–106; RESP 18–23; TEMP 97.7–98.8; O2SAT 92–100
--- NOTE | 2022-09-03 | NUR ---
facial grimacing , keeps touching the upper left arm , shows signs of pain - will medicate and will cont. to monitor .
[2022-09-03] MEDS: MORPHINE SULFATE 4 MG/ML SYR IVP PRN (00:12)
[2022-09-03] MEDS: Z-GUARD PASTE TP SCH ×2 (01:00→14:13)
[2022-09-03] MEDS: CEFEPIME 1,000 MG in DEXTROSE 5% 50 ML IV SCH ×2 (03:00→14:30)
[2022-09-03] MEDS: levETIRAcetam 1,000 MG in NACL 0.9% 100 ML IV SCH ×2 (04:00→14:30)
--- NOTE | 2022-09-03 04:00 | NUR ---
ROUNDS ,. NO S/SX OF ACUTE DISTRESS NOTED , WILL CONT. TO MONITOR
--- NOTE | 2022-09-03 06:00 | NUR ---
HOT TO TOUCH , TEMP RE CHECK 98 .8 F , WILL REMOVE THE EXTRA BLANKET .
[2022-09-03] MEDS: BLOOD GLUCOSE MONITORING 1 DEV DEV FS SCH ×4 (06:35→22:25)
[2022-09-03] MEDS: INSULIN LISPRO SLIDING SCALE 100 UNITS/ML VIAL SUBQ PRN ×2 (06:36→12:29)
--- NOTE | 2022-09-03 07:24 | NUR ---
ENDORSED PT FOR CONT. OF CARE .
--- NOTE | 2022-09-03 07:45 | NUR ---
GOT REPORT FROM NIGHT NURSE, NO SOB PT ALERT LOOKS COMFORTABLE .[id number]
[2022-09-03] MEDS: CALCIUM CARB/VIT-D 500 MG/200 IU 1 TAB PO SCH (08:26)
[2022-09-03] MEDS: METOPROLOL 50 MG TAB PO SCH ×2 (08:26)
[2022-09-03 08:52] LABS: BASOPHILS % (AUTO) 0.3 % (0.0-2.0); EOSINOPHILS # (AUTO) 0.2 K/uL (0-0.4); EOSINOPHILS % (AUTO) 2.5 % (0.0-4.0); HEMATOCRIT 24.8 % (36-48); HEMOGLOBIN 8.1 g/dL (12.0-16.0); LYMPHOCYTES % (AUTO) 10.7 % (20.5-51.1); MEAN CORPUSCULAR HEMOGLOBIN 24 pg (27-31); MEAN CORPUSCULAR HGB CONC 33 g/dL (33-37); MEAN CORPUSCULAR VOLUME 72.5 fL (80-94); MONOCYTES # (AUTO) 0.6 K/uL (0.8-1.0); MONOCYTES % (AUTO) 6.5 % (1.7-9.3); NEUTROPHILS # (AUTO) 7.6 K/uL (1.8-7.7); PLATELET COUNT (AUTO) 394 K/uL (140-450); RED BLOOD CELL COUNT(AUTO) 3.43 MIL/uL (4.20-5.40); RED CELL DISTRIBUTION WIDTH 17.1 % (11.6-13.7); WHITE BLOOD COUNT (AUTO) 9.4 K/uL (4.8-10.8)
[2022-09-03] MEDS ORDERED: FOAM DRESSING TP SCH (09:00)
[2022-09-03 09:04] LABS: ANION GAP 14.5 (8-16); CARBON DIOXIDE 19.9 mmol/L (21-32); CREATININE 0.6 mg/dL (0.6-1.3); POTASSIUM 3.4 mmol/L (3.5-5.1)
--- NOTE | 2022-09-03 09:40 | NUR ---
ORAL CARE DONE PT AWAKE WATCHING TV.[email or web address]
--- NOTE | 2022-09-03 09:58 | NUR ---
BLOOD DROWN FROM THE PICK LINE, VANCOMYCIN LEVEL, 28.6 SO PER PHARMACY HELD VANCOMYCIN .[email or web address]
[2022-09-03] MEDS: DEXT 5% /NACL 0.9% 1,000 ML IV SCH (10:00)
--- NOTE | 2022-09-03 10:00 | NUR ---
SUCTIONED PT AND REPOSITIONED.[email or web address]
--- NOTE | 2022-09-03 11:47 | NUR ---
Stock Associate PT. is intubaed so CERTIFIED PROSTHETIST/ORTHOTIST called and spoke to Summer Rn at [facility] to conduct a Discharge Planning Assessment.
--- NOTE | 2022-09-03 12:00 | NUR ---
SUCTIONED REPOSITIONED AND CACERES DRAINING THE GRAVITY. THE FEEDING IS INFUSING ORDERED.[email or web address]
[2022-09-03] MEDS: NYSTATIN POW 100 MU/GM 15 GM BTL TP SCH (13:00)
[2022-09-03] MEDS: ALGINATE ROPE MC SCH (13:00)
[2022-09-03] MEDS: GAUZE TP SCH (13:00)
--- NOTE | 2022-09-03 13:00 | NUR ---
THE DRESSING DONE AROUND THE G-PORT ORDERED.[email or web address]
--- NOTE | 2022-09-03 16:00 | NUR ---
PT HAD NO TEMP ALL DAY, NO RESIDUAL FROM THE FEEDING.[email or web address]
--- NOTE | 2022-09-03 16:00 | NUR ---
ORAL CARE IS DONE, PT CONTINUE TO BE AWAKE TRACK TO VENT IS MAINTAINED.[email or web address]
[2022-09-03] MEDS: RIVAROXABAN 10 MG TAB GT SCH (16:55)
--- NOTE | 2022-09-03 19:25 | NUR ---
GAVE THE REPORT TO THE NIGHT NURSE, PT CONTINUE TO BE AWAKE TRACK TO THE VENT IS MAINTAINED.[email or web address]
--- NOTE | 2022-09-03 21:46 | NUR ---
TRYING TO CALL RT ON DUTY TO CHECK THE VENTILATOR
--- NOTE | 2022-09-03 21:56 | NUR ---
CALLED TO BEDSIDE BECAUSE VENT WAS ALARMING. SXN PT, PT PRESSURES WERE STAYING ABOVE 45. CHANGED VENT SETTING TO AC/PC WITH SETTING iNSP PRESSURE 24, RATE 14, 35%, PEEP 5. WILL CONTINUE TO MONITOR PT.
[2022-09-03] MEDS: LORazepam 2 MG/ML VIAL IVP PRN (22:28)
--- NOTE | 2022-09-03 22:30 | NUR ---
SHOWS AGITATION , SHE TRYING TO PINCH MY HANDS AND THE RT'S HANDS , GRIMACING , IRRITABLE , HEAD MOVES BACK AND FORTH - WILL MEDICATE , BP 142 / 80 , HR 86 , 02 SAT 95 % - WILL CONT. TO MONITOR
--- NOTE | 2022-09-03 22:30 | NUR ---
dr. carvajal agree put it back pt previously ivf d5nss x80cc once pt is on npo - will carry out.
[2022-09-04] VITALS (11 sets, daily range): BP systolic 118–138; BP diastolic 58–82; PULSE 68–116; RESP 14–30; TEMP 97.4–99.4; O2SAT 96–100
--- NOTE | 2022-09-04 | NUR ---
O2 SAT WNL , NO S/SX OF ACUTE DISTRESS NOTED .
[2022-09-04] MEDS: DEXT 5% /NACL 0.9% 1,000 ML IV SCH ×3 (00:05→20:34)
[2022-09-04] MEDS: CEFEPIME 1,000 MG in DEXTROSE 5% 50 ML IV SCH ×2 (02:06→15:16)
--- NOTE | 2022-09-04 04:00 | NUR ---
ROUNDS , NO S/SX OF ACUTE DISTRESS NOTED .
[2022-09-04] MEDS: levETIRAcetam 1,000 MG in NACL 0.9% 100 ML IV SCH ×2 (04:09→15:17)
[2022-09-04] MEDS: Z-GUARD PASTE TP SCH ×2 (04:10→15:24)
[2022-09-04] MEDS: BLOOD GLUCOSE MONITORING 1 DEV DEV FS SCH ×4 (06:10→20:37)
--- NOTE | 2022-09-04 06:26 | NUR ---
PT IS NPO SINCE 12MN - FOR SURGERY .
--- NOTE | 2022-09-04 06:26 | NUR ---
PATIENT COMFORTABLE ON PC SETTINGS. TRIED TO RETURN TO PRVC SETTIGS, BUT PEAK PRESSURES RETURNED TO 48. KEPT ON PC SETTINGS.
[2022-09-04 06:41] LABS: ANION GAP 15.3 (8-16); CARBON DIOXIDE 19.9 mmol/L (21-32); CREATININE 0.5 mg/dL (0.6-1.3); POTASSIUM 3.2 mmol/L (3.5-5.1)
[2022-09-04 07:07] LABS: BASOPHILS % (AUTO) 0.6 % (0.0-2.0); EOSINOPHILS # (AUTO) 0.2 K/uL (0-0.4); EOSINOPHILS % (AUTO) 3.8 % (0.0-4.0); LYMPHOCYTES # (AUTO) 1.6 K/uL (2.5-16.5); LYMPHOCYTES % (AUTO) 27.4 % (20.5-51.1); MEAN CORPUSCULAR HEMOGLOBIN 24 pg (27-31); MEAN CORPUSCULAR HGB CONC 32 g/dL (33-37); MEAN CORPUSCULAR VOLUME 72.9 fL (80-94); MONOCYTES # (AUTO) 0.7 K/uL (0.8-1.0); MONOCYTES % (AUTO) 11.3 % (1.7-9.3); NEUTROPHILS # (AUTO) 3.3 K/uL (1.8-7.7); NEUTROPHILS % (AUTO) 56.9 % (42.2-75.2); PLATELET COUNT (AUTO) 370 K/uL (140-450); RED BLOOD CELL COUNT(AUTO) 2.62 MIL/uL (4.20-5.40); RED CELL DISTRIBUTION WIDTH 17.3 % (11.6-13.7); WHITE BLOOD COUNT (AUTO) 5.9 K/uL (4.8-10.8)
--- NOTE | 2022-09-04 07:15 | NUR ---
RECEIVED REPORT FROM MACHINE BENDER NURSE FOR CONTINUITY OF CARE. PT STABLE AT THIS TIME.
--- NOTE | 2022-09-04 07:30 | NUR ---
ENDORSED PT FOR CONT. OF CARE . I ENDORSED TO KATHYA HIDALGO SHE HAVE TO WATCH OUT THE RASHES OF THE FACE AND MAXIMINO OF THE PT - ROCKY VERBALIZES UNDERSTANDING .
[2022-09-04 08:08] LABS: HEMATOCRIT 19.1 % (36-48); HEMOGLOBIN 6.2 g/dL (12.0-16.0)
--- NOTE | 2022-09-04 08:30 | NUR ---
GOT A CALL FROM LAB THAT HER HGB WAS 6.2 AND HER HCT WAS 19.1. I MESSAGED DR. HUYNH RIGHT AFTER TO RECEIVE PORDERS. HE WANTED ME TO GET A REDRAW FROM A VEIN AND A TYPE AND SCREEN JUST INCASE. PLACED ORDERS.
[2022-09-04] MEDS: CALCIUM CARB/VIT-D 500 MG/200 IU 1 TAB PO SCH (08:52)
[2022-09-04] MEDS: METOPROLOL 50 MG TAB PO SCH ×3 (08:52→20:34)
[2022-09-04] MEDS: VANCOMYCIN 1,000 MG in DEXTROSE 5% 250 ML IV SCH (09:09)
[2022-09-04 09:46] LABS: BASOPHILS % (AUTO) 0.4 % (0.0-2.0); EOSINOPHILS # (AUTO) 0.2 K/uL (0-0.4); EOSINOPHILS % (AUTO) 3.3 % (0.0-4.0); HEMATOCRIT 24.7 % (36-48); LYMPHOCYTES # (AUTO) 1.7 K/uL (2.5-16.5); LYMPHOCYTES % (AUTO) 26.4 % (20.5-51.1); MEAN CORPUSCULAR HEMOGLOBIN 24 pg (27-31); MEAN CORPUSCULAR HGB CONC 32 g/dL (33-37); MEAN CORPUSCULAR VOLUME 72.6 fL (80-94); MONOCYTES # (AUTO) 0.6 K/uL (0.8-1.0); MONOCYTES % (AUTO) 9.7 % (1.7-9.3); NEUTROPHILS # (AUTO) 3.9 K/uL (1.8-7.7); NEUTROPHILS % (AUTO) 60.2 % (42.2-75.2); PLATELET COUNT (AUTO) 383 K/uL (140-450); RED CELL DISTRIBUTION WIDTH 17.2 % (11.6-13.7); WHITE BLOOD COUNT (AUTO) 6.5 K/uL (4.8-10.8)
[2022-09-04] MEDS ORDERED: BUPIVACAINE-MPF/EPI 0.25% 30 ML VIAL INJ ONE (11:22)
[2022-09-04] MEDS ORDERED: SEVOFLURANE 250 ML BTL INH ONE (12:11)
--- NOTE | 2022-09-04 12:15 | NUR ---
RT GOT CALLED TO THE OR TO ASSIST IN TAKING OFF THE TRACH MCDANIEL TO BE ABLE TO CONNECT THE OR VENT TO PT. NO DISTRESS NOTED
[2022-09-04] MEDS ORDERED: fentaNYL citrate 0.05 MG/ML VIAL ONE (12:32)
[2022-09-04] MEDS ORDERED: ONDANSETRON 4 MG/2 ML VIAL ONE (12:51)
[2022-09-04] MEDS: ALGINATE ROPE MC SCH (13:00)
[2022-09-04] MEDS: GAUZE TP SCH (13:00)
[2022-09-04] MEDS: NYSTATIN POW 100 MU/GM 15 GM BTL TP SCH (13:00)
--- NOTE | 2022-09-04 13:00 | NUR ---
PT WAS TEN TO SURGERY AT 1200. PT RETURNED FROM SURGERY AT 1300. THERE WAS A BIOPSY REMOVED AND SWABS TAKEN FROM AREA THAT WERE SENT TO LAB. PT HAS AN ABD PAD WITH KERALEX WRAPPED LOOSELY AROUND L ARM. NO BLOOD LOSS DURING PROCEDURE.
--- NOTE | 2022-09-04 13:00 | NUR ---
GOT CALLED TO OR TO TRANSPORT PT BACK TO ROOM. PT SETTINGS ARE AC VC 400 RR16 +5 75% PER ANESTHESIOLOGIST UNTIL NEXT VENT CHECK. THEN BACK TO ORIGINAL SETTINGS. NO DISTRESS NOTED PT TOLERATING VENT SETTINGS WELL. WILL CONTINUE TO MONITOR.
[2022-09-04] MEDS ORDERED: NACL 0.9% 1,000 ML IV SCH ×2 (13:10)
[2022-09-04] MEDS ORDERED: HYDROmorphone 1 MG/ML AMP IVP PRN (13:10)
[2022-09-04] MEDS ORDERED: LABETALOL 20 MG/4 ML VIAL IVP PRN (13:14)
[2022-09-04] MEDS ORDERED: hydrALAZINE 20 MG/ML VIAL IVP PRN (13:14)
--- NOTE | 2022-09-04 13:29 | NUR ---
@1206 TRANSPORTED PT TO OR WITH OR NURSES, PT WAS CONNECTED TO AMBU BAG AND SATING 100% HR 92 NO DISTRESS NOTED. PASSED PT TO ANESTHESIOLOGIST WHEN WE GOT TO OR DEPARTMENT.
--- NOTE | 2022-09-04 14:45 | NUR ---
RECEIVED A CALL FROM DIETARY ABOUT PATIENTS TUBE FEEDING, THEY ASK IF SHE IS TOLERATING THE FEED AND IF SHE WAS HAVING ANY GI ISSUES; SHE IS NOT. I ALSO TOLD THEM WE WOULD RESTART THE FEEDING ACCORDING TO THE DRS NOTES.
--- NOTE | 2022-09-04 14:48 | NUR ---
09/04/22 RD FOLLOW UP COMPLETED PLEASE REFER TO NUTRITION ASSESSMENT UNDER CARE ACTIVITY FOR ESTIMATED NUTRITIONAL NEEDS. 1. CONTINUE NPO TOLERATED AND ONCE MEDICALLY APPROPRIATE ADVANCE DIET BACK TO GLUCERNA 1.2 RATE TO 45 ML/HR TO OPTIMIZE NUTRITIONAL NEEDS WITH FWF 200 ML Q8H OR PER MD. 2. RECOMMEND MALIKA BID FOR WOUND WHICH WILL PROVIDE 160 CALORIES AND 5 GRAMS OF PROTEIN ONCE MEDICALLY APPROPRIATE. 3. RD TO FOLLOW-UP 2-3 DAYS, HIGH RISK YAMILKA ALMENDAREZ RD
--- NOTE | 2022-09-04 15:00 | NUR ---
PHARMACY CALLED AND ASKED IF I COULD ASK THE DR IF HE WANTS TO CONTINUE THE CEFEPIME; MESSAGED THE DR AND HE SAID TO CONTINUE SO I PLACED THE ORDER.
[2022-09-04] MEDS: RIVAROXABAN 10 MG TAB GT SCH (16:54)
--- NOTE | 2022-09-04 19:27 | NUR ---
RECEIVED ON A CARESCAPE VENTILATOR PLUGGED INTO RED OUTLET AND AMBU BAG AT BEDSIDE. PT TOLERATING WELL NO ADVERSE REACTIONS NOTED. PATIENT HAS A PORTEX DCT #7. AIRWAY PATENT AND SECURED. CUFF PRESSURE CHECKED AND FOUND ADEQUATELY INFLATED. PT AWAKE AND ALERT RESPONSIVE TO COUNCIL ON AGING DIRECTOR BY "NODDING OF HEAD" OR FORMING OK SIGN WITH FINGERS.TRACHEAL SUCTION RESULTED IN MODERATE AMOUNT OF FROTHY WHITE SECRETIONS. LARGE AMOUNT OF ORAL SECRETION REMOVED WITH YANKAUER. FOUND PT ON 75% FiO2 WILL DECREASE TO PREVIOUS 35% per anesthesiologist. WILL CONTINUE TO MONITOR PT THROUGHOUT SHIFT.
--- NOTE | 2022-09-04 19:31 | NUR ---
ENDORSED PT TO SENIOR APPLICATION PROGRAMMER NURSE FOR CONTINUITY OF CARE. PT STABLE AT THIS TIME.
[2022-09-04] MEDS ORDERED: CEFEPIME 1,000 MG in DEXTROSE 5% 50 ML IV SCH (21:00)
[2022-09-05] VITALS (13 sets, daily range): BP systolic 97–136; BP diastolic 56–80; PULSE 66–104; RESP 14–17; TEMP 97.8–99; O2SAT 96–100
[2022-09-05] MEDS: Z-GUARD PASTE TP SCH ×2 (01:08→13:00)
[2022-09-05] MEDS: CEFEPIME 1,000 MG in DEXTROSE 5% 50 ML IV SCH ×2 (01:12→17:45)
[2022-09-05] MEDS: levETIRAcetam 1,000 MG in NACL 0.9% 100 ML IV SCH ×2 (03:39→17:46)
[2022-09-05] MEDS: BLOOD GLUCOSE MONITORING 1 DEV DEV FS SCH ×3 (06:18→16:30)
[2022-09-05] MEDS: INSULIN LISPRO SLIDING SCALE 100 UNITS/ML VIAL SUBQ PRN (06:35)
--- NOTE | 2022-09-05 06:50 | NUR ---
RECEIVED PT ON PC 24, F14, +5, 35%. TRACH PORTEX 7, VENT PLUGGED INTO RED OUTLET, WHEELS LOCKED, ALARMS ARE SET AND AUDIBLE, AMBUBAG AT BEDSIDE. SATURATION 96%, BREATH SOUNDS WERE COARSE, SUCTIONED UP MODERATE AMOUNT YELLOW SPUTUM. DRAIN SPONGE CHANGED. WILL CONTINUE TO MONITOR PT.
--- NOTE | 2022-09-05 08:00 | NUR ---
RECEIVED PATIENT RESTING COMFORTABLY IN BED, TRACH TO VENT WITH SETTINGS ORDERED, TOLERATING WELL. ON G-TUBE FEEDING TOLERATING WELL. CACERES CATHETER IN PLACED. SEIZURE PRECAUTION MAINTAINED. SAFETY MEASURES MAINTAINED. WILL CONTINUE PLAN OF CARE.
[2022-09-05] MEDS: VANCOMYCIN 1,000 MG in DEXTROSE 5% 250 ML IV SCH (09:09)
[2022-09-05] MEDS: MORPHINE SULFATE 4 MG/ML SYR IVP PRN (09:09)
[2022-09-05] MEDS: METOPROLOL 50 MG TAB PO SCH (09:09)
[2022-09-05] MEDS: CALCIUM CARB/VIT-D 500 MG/200 IU 1 TAB PO SCH (09:10)
--- NOTE | 2022-09-05 09:25 | NUR ---
WOUND CARE NOTE: LEFT UPPER ARM S/P I&D SURGICAL WOUND [id number], WOUND BED 100% RED GRANULATION TISSUE, NO ODOR, SMALL AMOUNT SANGUINOUS DRAINAGE. LINDA-WOUND SKIN INTACT. POC DISCUSSED WITH PRIMARY RN, WILL ADD HYDROGEL TO SURGICAL WOUND DAILY. -CLEANSE LEFT UPPER ARM WOUND WITH WOUND CLEANSING SOLUTION, PAT DRY, APPLY HYDROGEL WITH OIL EMULSION DRESSING,COVER WITH DRY DRESSING, WRAP WITH KERLIX ROLL, SECURED WITH TAPE QD AND PRN IF SOILING.
[2022-09-05] MEDS ORDERED: VANC1PLA7 IV (11:10)
[2022-09-05] MEDS ORDERED: SKINTEGRITY HYDROGEL TP PRN (11:30)
[2022-09-05] MEDS: DEXT 5% /NACL 0.9% 1,000 ML IV SCH (12:00)
[2022-09-05] MEDS: GAUZE TP SCH (13:00)
[2022-09-05] MEDS: ALGINATE ROPE MC SCH (13:00)
[2022-09-05] MEDS ORDERED: SKINTEGRITY HYDROGEL TP SCH (13:00)
--- NOTE | 2022-09-05 16:45 | NUR ---
PATIENT GO[place] [facility]PORT GIVEN TO CHAU RASHEED. TRANSPORT KEY ACCOUNT EXECUTIVE TIME CHANGED FROM 1700 TO 1900.
[2022-09-05] MEDS: RIVAROXABAN 10 MG TAB GT SCH (17:51)
--- NOTE | 2022-09-05 19:30 | NUR ---
REPORT GIVEN TO KRISTEN DAVID, EMT. PT GOING TO [facility]. PT IS STABLE.
== END 2022-09-05 19:25 | DRG 53 ==
LOC: MED 14:29 → EEVIPCON 18:30 → MTU 18:30
PROVIDERS: ADMIT Student in an Organized Health Care Education/Training Program; ATTEND Student in an Organized Health Care Education/Training Program
PROC: 5A1955Z Respiratory Ventilation, Greater than 96 Consecutive Hours (ICD-10-PCS; principal; 2022-08-30)
PROC: 02HV33Z Insertion of Infusion Device into Superior Vena Cava, Percutaneous Approach (ICD-10-PCS; 2022-08-31)
PROC: B548ZZA Ultrasonography of Superior Vena Cava, Guidance (ICD-10-PCS; 2022-08-31)
PROC: 0X950ZX Drainage of Left Axilla, Open Approach, Diagnostic (ICD-10-PCS; 2022-09-04)
DX: G40.909 Epilepsy, unspecified, not intractable, without status epilepticus (principal); J96.11 Chronic respiratory failure with hypoxia; Z99.11 Dependence on respirator [ventilator] status; Z93.0 Tracheostomy status; E11.65 Type 2 diabetes mellitus with hyperglycemia; L02.412 Cutaneous abscess of left axilla; E66.01 Morbid (severe) obesity due to excess calories; E87.5 Hyperkalemia; I48.91 Unspecified atrial fibrillation; G80.9 Cerebral palsy, unspecified; Z20.822 Contact with and (suspected) exposure to COVID-19; N39.0 Urinary tract infection, site not specified; R13.10 Dysphagia, unspecified; Z79.01 Long term (current) use of anticoagulants; Z88.5 Allergy status to narcotic agent; Z88.0 Allergy status to penicillin; Z88.1 Allergy status to other antibiotic agents; Z86.73 Personal history of transient ischemic attack (TIA), and cerebral infarction without residual deficits; Z80.52 Family history of malignant neoplasm of bladder; Z82.5 Family history of asthma and other chronic lower respiratory diseases; Z98.2 Presence of cerebrospinal fluid drainage device; Z83.3 Family history of diabetes mellitus; Z81.8 Family history of other mental and behavioral disorders; Z68.41 Body mass index [BMI] 40.0-44.9, adult; Z93.1 Gastrostomy status; Z79.4 Long term (current) use of insulin
CPT/HCPCS: 36415; 36600; 70450; 71045; 76881; 80048; 80053; 80202; 80305; 81001; 81025; 82105; 82550; 82803; 82948; 83605; 83735; 84132; 84484; 85025; 85610; 86886; 86900; 86901; 87040; 87070; 87075; 87081; 87086; 87102; 87116; 87190; 87205; 87206; 89220; 93005; 93970; 93971; 94002; 94003; 95816; 96361; 96365; 96367; 96375; 99285; A4649; J0692; J0713; J1644; J1815; J1953; J2060; J2270; J2405; J3010; J3370; J3480; J3490; J7030; J7060; Q0092

== ENCOUNTER 2022-12-12 06:10 | Inpatient (IN) | payer OTHER ==
[~2022-12-12] VITALS: Ht 142.2 cm; Wt 72.6 kg
[2022-12-12] VITALS (13 sets, daily range): BP systolic 107–129; BP diastolic 56–78; PULSE 80–132; RESP 16–30; TEMP 97.1–98.9; O2SAT 98–100
[~2022-12-12 06:10] MED LIST changes: +VANC1PLA7 IV
[2022-12-12] MEDS ORDERED: LORazepam 2 MG/ML VIAL IVP ONE (06:25)
[2022-12-12] MEDS ORDERED: LORazepam 2 MG/ML VIAL IM ONE (06:30)
[2022-12-12] MEDS ORDERED: ACETAMINOPHEN 650 MG SUPP RC ONE (06:55)
[2022-12-12] MEDS ORDERED: levETIRAcetam 1,000 MG in NACL 0.9% 100 ML IV ONE (07:00)
[2022-12-12] MEDS ORDERED: cefTAZidime 2,000 MG in DEXTROSE 5% 100 ML IV ONE (07:00)
[2022-12-12 07:11] LABS: BASOPHILS # (AUTO) 0.1 K/uL (0.00-0.22); BASOPHILS % (AUTO) 0.8 % (0.0-2.0); EOSINOPHILS # (AUTO) 0.2 K/uL (0-0.4); EOSINOPHILS % (AUTO) 1.3 % (0.0-4.0); HEMATOCRIT 32.2 % (36-48); HEMOGLOBIN 9.7 g/dL (12.0-16.0); LYMPHOCYTES # (AUTO) 1.6 K/uL (2.5-16.5); LYMPHOCYTES % (AUTO) 12.9 % (20.5-51.1); MEAN CORPUSCULAR HEMOGLOBIN 21 pg (27-31); MEAN CORPUSCULAR HGB CONC 30 g/dL (33-37); MEAN CORPUSCULAR VOLUME 68.1 fL (80-94); MONOCYTES # (AUTO) 0.9 K/uL (0.8-1.0); NEUTROPHILS # (AUTO) 9.4 K/uL (1.8-7.7); PLATELET COUNT (AUTO) 716 K/uL (140-450); RED BLOOD CELL COUNT(AUTO) 4.73 MIL/uL (4.20-5.40); WHITE BLOOD COUNT (AUTO) 12.1 K/uL (4.8-10.8)
[2022-12-12 07:27] LABS: APPEARANCE,URINE CLEAR (CLEAR); BILIRUBIN,URINE NEGATIVE (NEGATIVE); BLOOD, URINE 3+ (NEGATIVE); COLOR,URINE YELLOW (YELLOW); LEUKOCYTE ESTERASE ,URINE 3+ (NEGATIVE); NITRITE, URINE NEGATIVE (NEGATIVE); PROTEIN,URINE 3+ (NEGATIVE); UGLUCOSE NEGATIVE (NEGATIVE); UROBILINOGEN,URINE 0.2 EU/dL (0.2 - 1)
[2022-12-12] MEDS ORDERED: levETIRAcetam 100 MG/ML VIAL IV ONE (07:32)
[2022-12-12 07:37] LABS: ALANINE AMINOTRANSFERASE 38 U/L (12-78); ALBUMIN 3.3 g/dL (3.4-5.0); ALKALINE PHOSPHATASE 66 U/L (50-136); ASPARTATE AMINOTRANSFERASE 50 U/L (15-37); CALCIUM 9.6 mg/dL (8.5-10.1); CARBON DIOXIDE 23.7 mmol/L (21-32); CHLORIDE 102 mmol/L (98-107); CREATININE 0.6 mg/dL (0.6-1.3); GFR ARICAN-AMERICAN 142 mL/min (>90); GFR NON ARICAN-AMERICAN 118 mL/min (>90); GLUCOSE 154 mg/dL (74-106); POTASSIUM 4.7 mmol/L (3.5-5.1); SODIUM SERUM 136 mmol/L (136-145); TOTAL BILIRUBIN 0.4 mg/dL (0.0-1.0); TOTAL PROTEIN, SERUM 9.3 g/dL (6.4-8.2); UREA NITROGEN, BLOOD 27 mg/dL (7-18)
[2022-12-12 07:41] LABS: BACTERIA,URINE 3+ /HPF (None Seen); RBC,URINE 11-20 (MOD) /HPF (0-5); SQUAMOUS EPITHELIAL CELL,UR 0-3 (FEW) /LPF (0-3 (FEW)); WBC,URINE 80-100 /HPF (0-5)
[2022-12-12] MEDS ORDERED: NACL 0.9% 1,000 ML IV ONE ×2 (08:30)
[2022-12-12 09:27] LABS: LACTIC ACID 0.8 mmol/L (0.4-2.0)
[2022-12-12] MEDS ORDERED: MAG SULF 2000 MG/WATER PREMIX 50 ML IV PRN (11:05)
[2022-12-12] MEDS ORDERED: POTASSIUM CHLORIDE 10 MEQ TABER PO PRN (11:05)
[2022-12-12] MEDS ORDERED: KCL 20 MEQ IN 100 mL PREMIX 200 ML IV PRN (11:05)
[2022-12-12] MEDS ORDERED: MAGNESIUM OXIDE 400 MG TAB PO PRN (11:05)
[2022-12-12] MEDS ORDERED: HYDROcodone/APAP 5/325 MG 1 TAB TAB PO PRN (11:05)
[2022-12-12] MEDS ORDERED: ACETAMINOPHEN 325 MG TAB PO PRN (11:05)
[2022-12-12] MEDS: NACL 0.9% 1,000 ML IV SCH ×2 (11:05→23:35)
[2022-12-12] MEDS ORDERED: LORazepam 2 MG/ML VIAL IVP PRN (11:10)
[2022-12-12] MEDS ORDERED: DEXTROSE 50% 50 ML SYR IVP PRN ×2 (11:10→17:55)
[2022-12-12] MEDS ORDERED: INSULIN LISPRO SLIDING SCALE 100 UNITS/ML VIAL SUBQ PRN (11:10)
[2022-12-12] MEDS: BLOOD GLUCOSE MONITORING 1 DEV DEV FS SCH ×3 (11:30→20:30)
[2022-12-12 14:24] LABS: BLOOD GAS HCO3 19.9 mmol/L (22-26); BLOOD GAS PCO2 37.2 mmHg (35-45); BLOOD GAS PH 7.347 (7.35-7.45); BLOOD GAS PO2 133.8 mmHg (75-100)
[2022-12-12 14:25] LABS: BLOOD GAS BASE EXCESS -5.2 mmol/L (-2.0-2.0); BLOOD GAS O2 SAT% 98.5 % (92.0-98.5)
[2022-12-12] MEDS ORDERED: VANCOMYCIN PER PHARMACY MC PRN (17:55)
[2022-12-12] MEDS ORDERED: DEXT 5% / NACL 0.9% 1,000 ML IV SCH (18:50)
[2022-12-12] MEDS: DEXT 5% / NACL 0.9% 1,000 ML IV SCH (19:01)
[2022-12-12] MEDS: VANCOMYCIN 1,000 MG in DEXTROSE 5% 250 ML IV SCH (19:44)
[2022-12-12] MEDS: METOPROLOL 50 MG TAB PO SCH (20:22)
[2022-12-12] MEDS: levETIRAcetam 500 MG in NACL 0.9% 100 ML IV SCH (21:24)
[2022-12-12] MEDS: CEFEPIME 1,000 MG in DEXTROSE 5% 50 ML IV SCH (22:02)
[2022-12-13] VITALS (14 sets, daily range): BP systolic 115–135; BP diastolic 73–89; PULSE 84–116; RESP 18–24; TEMP 36.2; O2SAT 98–100
[2022-12-13 05:25] LABS: BASOPHILS # (AUTO) 0.1 K/uL (0.00-0.22); BASOPHILS % (AUTO) 0.7 % (0.0-2.0); EOSINOPHILS # (AUTO) 0.1 K/uL (0-0.4); EOSINOPHILS % (AUTO) 0.4 % (0.0-4.0); HEMATOCRIT 28.4 % (36-48); HEMOGLOBIN 8.7 g/dL (12.0-16.0); LYMPHOCYTES # (AUTO) 1.1 K/uL (2.5-16.5); LYMPHOCYTES % (AUTO) 8.7 % (20.5-51.1); MEAN CORPUSCULAR HEMOGLOBIN 21 pg (27-31); MEAN CORPUSCULAR HGB CONC 31 g/dL (33-37); MONOCYTES # (AUTO) 0.8 K/uL (0.8-1.0); MONOCYTES % (AUTO) 6.5 % (1.7-9.3); NEUTROPHILS # (AUTO) 10.8 K/uL (1.8-7.7); NEUTROPHILS % (AUTO) 83.7 % (42.2-75.2); PLATELET COUNT (AUTO) 604 K/uL (140-450); RED BLOOD CELL COUNT(AUTO) 4.18 MIL/uL (4.20-5.40); RED CELL DISTRIBUTION WIDTH 18.7 % (11.6-13.7)
[2022-12-13 05:55] LABS: ALBUMIN 2.9 g/dL (3.4-5.0); ANION GAP 13.8 (8-16); CALCIUM 9.3 mg/dL (8.5-10.1); CARBON DIOXIDE 19.6 mmol/L (21-32); CREATININE 0.6 mg/dL (0.6-1.3); MAGNESIUM 2.1 mg/dL (1.8-2.4); POTASSIUM 3.4 mmol/L (3.5-5.1); TOTAL BILIRUBIN 0.4 mg/dL (0.0-1.0); TOTAL PROTEIN, SERUM 8.3 g/dL (6.4-8.2)
[2022-12-13] MEDS: BLOOD GLUCOSE MONITORING 1 DEV DEV FS SCH ×4 (06:33→20:25)
[2022-12-13] MEDS: INSULIN LISPRO SLIDING SCALE 100 UNITS/ML VIAL SUBQ PRN ×2 (06:34→17:08)
[2022-12-13] MEDS: DEXT 5% / NACL 0.9% 1,000 ML IV SCH (07:15)
[2022-12-13] MEDS: VANCOMYCIN 1,000 MG in DEXTROSE 5% 250 ML IV SCH ×2 (08:25→20:11)
[2022-12-13] MEDS ORDERED: NON-FORMULARY ITEM (Fenofibrate Nanocrystallized* (Tricor*) 145 MG) GT SCH (09:00)
[2022-12-13] MEDS: FENOFIBRATE 48 MG TAB GT SCH (09:58)
[2022-12-13] MEDS: METOPROLOL 50 MG TAB PO SCH ×2 (09:58→20:34)
[2022-12-13] MEDS: RIVAROXABAN 10 MG TAB GT SCH (09:59)
[2022-12-13] MEDS: levETIRAcetam 500 MG in NACL 0.9% 100 ML IV SCH (10:02)
[2022-12-13] MEDS: CEFEPIME 1,000 MG in DEXTROSE 5% 50 ML IV SCH ×2 (10:02→22:37)
[2022-12-13] MEDS: NACL 0.9% 1,000 ML IV SCH (13:42)
[2022-12-13] MEDS ORDERED: POTASSIUM CHLORIDE 20% 40 MEQ/15 ML UDC GT PRN (18:00)
[2022-12-13] MEDS: levETIRAcetam 1,000 MG in NACL 0.9% 100 ML IV SCH (21:50)
[2022-12-14] VITALS (11 sets, daily range): BP systolic 113–133; BP diastolic 60–81; PULSE 84–106; RESP 18–20; TEMP 97.9–98.5; O2SAT 96–100
[2022-12-14 07:04] LABS: BASOPHILS # (AUTO) 0.1 K/uL (0.00-0.22); BASOPHILS % (AUTO) 1.1 % (0.0-2.0); EOSINOPHILS # (AUTO) 0.2 K/uL (0-0.4); EOSINOPHILS % (AUTO) 2.4 % (0.0-4.0); HEMATOCRIT 25.4 % (36-48); HEMOGLOBIN 7.9 g/dL (12.0-16.0); LYMPHOCYTES # (AUTO) 1.3 K/uL (2.5-16.5); LYMPHOCYTES % (AUTO) 16.9 % (20.5-51.1); MEAN CORPUSCULAR HEMOGLOBIN 21 pg (27-31); MEAN CORPUSCULAR HGB CONC 31 g/dL (33-37); MEAN CORPUSCULAR VOLUME 67.3 fL (80-94); MONOCYTES # (AUTO) 0.9 K/uL (0.8-1.0); MONOCYTES % (AUTO) 11.2 % (1.7-9.3); NEUTROPHILS # (AUTO) 5.2 K/uL (1.8-7.7); NEUTROPHILS % (AUTO) 68.4 % (42.2-75.2); PLATELET COUNT (AUTO) 483 K/uL (140-450); RED BLOOD CELL COUNT(AUTO) 3.77 MIL/uL (4.20-5.40); RED CELL DISTRIBUTION WIDTH 18.7 % (11.6-13.7); WHITE BLOOD COUNT (AUTO) 7.6 K/uL (4.8-10.8)
[2022-12-14] MEDS: BLOOD GLUCOSE MONITORING 1 DEV DEV FS SCH ×2 (07:07→12:12)
[2022-12-14] MEDS: INSULIN LISPRO SLIDING SCALE 100 UNITS/ML VIAL SUBQ PRN (07:12)
[2022-12-14 07:23] LABS: ALBUMIN 2.5 g/dL (3.4-5.0); ANION GAP 10.9 (8-16); CALCIUM 8.8 mg/dL (8.5-10.1); CARBON DIOXIDE 20.8 mmol/L (21-32); CREATININE 0.6 mg/dL (0.6-1.3); MAGNESIUM 2.1 mg/dL (1.8-2.4); POTASSIUM 3.7 mmol/L (3.5-5.1); TOTAL BILIRUBIN 0.3 mg/dL (0.0-1.0); TOTAL PROTEIN, SERUM 7.2 g/dL (6.4-8.2)
[2022-12-14] MEDS: CEFEPIME 1,000 MG in DEXTROSE 5% 50 ML IV SCH (08:22)
[2022-12-14] MEDS: FENOFIBRATE 48 MG TAB GT SCH (08:22)
[2022-12-14] MEDS: METOPROLOL 50 MG TAB PO SCH (08:23)
[2022-12-14] MEDS: RIVAROXABAN 10 MG TAB GT SCH (08:25)
[2022-12-14] MEDS: levETIRAcetam 1,000 MG in NACL 0.9% 100 ML IV SCH (09:08)
[2022-12-14] MEDS: NACL 0.9% 1,000 ML IV SCH (09:18)
[2022-12-14] MEDS ORDERED: FOAM DRESSING TP PRN (12:25)
[2022-12-14] MEDS ORDERED: HYDRAGUARD CREAM TP PRN (12:25)
[2022-12-14] MEDS ORDERED: GAUZE TP SCH (13:00)
[2022-12-14] MEDS ORDERED: FOAM DRESSING TP SCH (13:00)
[2022-12-14] MEDS ORDERED: HYDRAGUARD CREAM TP SCH (13:00)
[2022-12-14] MEDS ORDERED: CEFE1SOL IV (14:34)
[2022-12-14] MEDS ORDERED: LEVE750T3 PO ×2 (14:34→14:36)
[2022-12-14] MEDS ORDERED: VALPROIC ACID 250 MG/5 ML UDC PO SCH (21:00)
[2022-12-14] MEDS ORDERED: levETIRAcetam 1,500 MG in NACL 0.9% 100 ML IV SCH (21:00)
== END 2022-12-14 17:48 | DRG 720 ==
LOC: MED 06:10 → MTU 11:09
PROVIDERS: ADMIT Internal Medicine; ATTEND Internal Medicine
PROC: 5A1945Z Respiratory Ventilation, 24-96 Consecutive Hours (ICD-10-PCS; principal; 2022-12-12)
PROC: 4A00X4Z Measurement of Central Nervous Electrical Activity, External Approach (ICD-10-PCS; 2022-12-14)
DX: A41.9 Sepsis, unspecified organism (principal); J69.0 Pneumonitis due to inhalation of food and vomit; E43 Unspecified severe protein-calorie malnutrition; G40.101 Localization-related (focal) (partial) symptomatic epilepsy and epileptic syndromes with simple partial seizures, not intractable, with status epilepticus; J96.10 Chronic respiratory failure, unspecified whether with hypoxia or hypercapnia; Z93.0 Tracheostomy status; Z99.11 Dependence on respirator [ventilator] status; G80.9 Cerebral palsy, unspecified; Z20.822 Contact with and (suspected) exposure to COVID-19; N39.0 Urinary tract infection, site not specified; Z88.1 Allergy status to other antibiotic agents; Z88.5 Allergy status to narcotic agent; Z88.0 Allergy status to penicillin; Z79.899 Other long term (current) drug therapy; Z82.5 Family history of asthma and other chronic lower respiratory diseases; Z83.3 Family history of diabetes mellitus; Z80.52 Family history of malignant neoplasm of bladder; Z82.0 Family history of epilepsy and other diseases of the nervous system; Z68.35 Body mass index [BMI] 35.0-35.9, adult
CPT/HCPCS: 36415; 36600; 70450; 71045; 80053; 80202; 81001; 82803; 82948; 83605; 83735; 84484; 85025; 87070; 87081; 87086; 87205; 89220; 93005; 94002; 94003; 95816; 96365; 96375; 99285; J0692; J0713; J1815; J1953; J2060; J3370; J7060; Q0092

== ENCOUNTER 2023-08-19 14:27 | Inpatient (IN) | payer OTHER ==
[~2023-08-19] VITALS: Ht 149.9 cm; Wt 64.9 kg
[2023-08-19] VITALS (14 sets, daily range): BP systolic 84–150; BP diastolic 52–90; PULSE 107–152; RESP 17–23; TEMP 97.1–103.5; O2SAT 98–100
[~2023-08-19 14:27] MED LIST changes: -KEP500 PO; +KEP500L GT; +KEP500L PO; +VALP-22 GT; -VANC1PLA7 IV; +[UNRECOGNIZED DRUG - CODE] IM; +[UNRECOGNIZED DRUG - CODE] IV
[2023-08-19] MEDS: ACETAMINOPHEN 650 MG SUPP RC ONE (14:55)
[2023-08-19] MEDS ORDERED: AZITHROMYCIN 500 MG INJ VIAL IV ONE (14:56)
[2023-08-19] MEDS: NACL 0.9% 1,000 ML IV SCH ×2 (15:04→17:35)
[2023-08-19 15:12] LABS: BASOPHILS # (AUTO) 0.1 K/uL (0.00-0.22); BASOPHILS % (AUTO) 1.2 % (0.0-2.0); EOSINOPHILS % (AUTO) 0.4 % (0.0-4.0); HEMATOCRIT 25.9 % (36-48); HEMOGLOBIN 8.3 g/dL (12.0-16.0); LYMPHOCYTES # (AUTO) 0.3 K/uL (2.5-16.5); LYMPHOCYTES % (AUTO) 5.2 % (20.5-51.1); MEAN CORPUSCULAR HEMOGLOBIN 24 pg (27-31); MEAN CORPUSCULAR HGB CONC 32 g/dL (33-37); MEAN CORPUSCULAR VOLUME 73.6 fL (80-94); MONOCYTES # (AUTO) 0.1 K/uL (0.8-1.0); NEUTROPHILS # (AUTO) 5.6 K/uL (1.8-7.7); NEUTROPHILS % (AUTO) 91.2 % (42.2-75.2); PLATELET COUNT (AUTO) 549 K/uL (140-450); RED BLOOD CELL COUNT(AUTO) 3.51 MIL/uL (4.20-5.40); RED CELL DISTRIBUTION WIDTH 19.1 % (11.6-13.7); WHITE BLOOD COUNT (AUTO) 6.2 K/uL (4.8-10.8)
[2023-08-19] MEDS: AZITHROMYCIN 500 MG in DEXTROSE 5% 250 ML IV ONE (15:15)
[2023-08-19 15:31] LABS: ANION GAP 13.6 (8-16); CALCIUM 9.9 mg/dL (8.5-10.1); CARBON DIOXIDE 27.4 mmol/L (21-32); CREATININE 1.2 mg/dL (0.6-1.3)
[2023-08-19 15:44] LABS: LACTIC ACID 3.8 mmol/L (0.4-2.0)
[2023-08-19 15:46] LABS: FLU A ANTIGEN negative (NEGATIVE); FLU B ANTIGEN NEGATIVE (NEGATIVE)
[2023-08-19 16:33] LABS: BILIRUBIN,URINE NEGATIVE (NEGATIVE); BLOOD, URINE 2+ (NEGATIVE); COLOR,URINE YELLOW (YELLOW); LEUKOCYTE ESTERASE ,URINE 1+ (NEGATIVE); NITRITE, URINE NEGATIVE (NEGATIVE); PH,URINE 7.5 (5.0-9.0); PROTEIN,URINE 3+ (NEGATIVE); UGLUCOSE NEGATIVE (NEGATIVE); UROBILINOGEN,URINE 0.2 EU/dL (0.2 - 1)
[2023-08-19 16:35] LABS: APPEARANCE,URINE HAZY (CLEAR)
[2023-08-19] MEDS ORDERED: ATRMDI IH (16:56)
[2023-08-19] MEDS ORDERED: EPOE10004 SQ (16:56)
[2023-08-19] MEDS ORDERED: METO50TA21 GT (16:56)
[2023-08-19] MEDS ORDERED: CHLO473S62 PO (16:56)
[2023-08-19] MEDS ORDERED: MULT-2308 GT (16:56)
[2023-08-19] MEDS ORDERED: ALBU0.0912 IH (16:56)
[2023-08-19] MEDS ORDERED: HUM SUBQ (16:56)
[2023-08-19] MEDS ORDERED: ALBU0.0912 INH (16:56)
[2023-08-19] MEDS ORDERED: DOCU-299 GT (16:56)
[2023-08-19] MEDS ORDERED: IPRA12.9 INH (16:56)
[2023-08-19] MEDS ORDERED: [UNRECOGNIZED DRUG - CODE] GT (16:56)
[2023-08-19] MEDS ORDERED: METF-1243 GT (16:56)
[2023-08-19] MEDS ORDERED: CALC1TAB72 GT (16:56)
[2023-08-19] MEDS ORDERED: CALC-575 GT (16:56)
[2023-08-19] MEDS ORDERED: MEDI30SO GT (16:56)
[2023-08-19] MEDS ORDERED: NUTR887L11 GT (16:56)
[2023-08-19] MEDS ORDERED: MELA3TER GT (16:56)
[2023-08-19] MEDS ORDERED: ZINC220T3 GT (16:56)
[2023-08-19] MEDS ORDERED: ASCO-518 GT (16:56)
[2023-08-19] MEDS ORDERED: ARGI4.5P3 GT (16:56)
[2023-08-19 17:03] LABS: BACTERIA,URINE 1+ /HPF (None Seen)
[2023-08-19 17:04] LABS: MUCUS,URINE None Seen /LPF (None Seen); SQUAMOUS EPITHELIAL CELL,UR 0-3 (FEW) /LPF (0-3 (FEW))
[2023-08-19] MEDS ORDERED: VANCOMYCIN 1,000 MG VIAL ONE (17:12)
[2023-08-19] MEDS ORDERED: ONDANSETRON 4 MG/2 ML VIAL IVP PRN (17:15)
[2023-08-19] MEDS ORDERED: ACETAMINOPHEN 325 MG TAB PO PRN (17:15)
[2023-08-19] MEDS ORDERED: VANCOMYCIN PER PHARMACY MC PRN (17:15)
[2023-08-19] MEDS: VANCOMYCIN 1,000 MG in DEXTROSE 5% 250 ML IV ONE (17:27)
[2023-08-19] MEDS: ALBUTEROL 0.083% 2.5 MG/3 ML NEBU INH PRN (19:12)
[2023-08-19] MEDS: NOREPINEPHRINE 4 MG/4 ML VIAL IV ONE (19:23)
[2023-08-19] MEDS: NOREPINEPHRINE 4 MG in DEXTROSE 5% 250 ML IV PRN (19:23)
[2023-08-19] MEDS ORDERED: COMMUNICATION ORDER MC PRN (20:18)
[2023-08-19] MEDS: CALCIUM CARB 600 MG TAB GT SCH (21:00)
[2023-08-19] MEDS: VALPROIC ACID 250 MG/5 ML UDC GT SCH (21:00)
[2023-08-19] MEDS: levETIRAcetam 100 MG/ML ORASYR GT SCH (21:00)
[2023-08-20] VITALS (28 sets, daily range): BP systolic 90–154; BP diastolic 51–94; PULSE 100–126; RESP 15–26; TEMP 96.2–100; O2SAT 94–100
[2023-08-20] MEDS: BLOOD GLUCOSE MONITORING 1 DEV DEV FS SCH (00:44)
[2023-08-20] MEDS: INSULIN LISPRO SLIDING SCALE 100 UNITS/ML VIAL SUBQ PRN (00:46)
[2023-08-20 05:37] LABS: BASOPHILS % (AUTO) 0.4 % (0.0-2.0); EOSINOPHILS % (AUTO) 0.1 % (0.0-4.0); LYMPHOCYTES # (AUTO) 0.5 K/uL (2.5-16.5); LYMPHOCYTES % (AUTO) 7.2 % (20.5-51.1); MEAN CORPUSCULAR HEMOGLOBIN 24 pg (27-31); MEAN CORPUSCULAR HGB CONC 32 g/dL (33-37); MEAN CORPUSCULAR VOLUME 73.6 fL (80-94); MONOCYTES # (AUTO) 0.8 K/uL (0.8-1.0); MONOCYTES % (AUTO) 10.4 % (1.7-9.3); NEUTROPHILS # (AUTO) 5.9 K/uL (1.8-7.7); NEUTROPHILS % (AUTO) 81.9 % (42.2-75.2); PLATELET COUNT (AUTO) 377 K/uL (140-450); RED BLOOD CELL COUNT(AUTO) 2.71 MIL/uL (4.20-5.40); RED CELL DISTRIBUTION WIDTH 18.7 % (11.6-13.7); WHITE BLOOD COUNT (AUTO) 7.3 K/uL (4.8-10.8)
[2023-08-20 05:53] LABS: HEMATOCRIT 19.9 % (36-48); HEMOGLOBIN 6.4 g/dL (12.0-16.0)
[2023-08-20 05:59] LABS: ALBUMIN 1.5 g/dL (3.4-5.0); CARBON DIOXIDE 23.8 mmol/L (21-32); CREATININE 0.9 mg/dL (0.6-1.3); MAGNESIUM 2.6 mg/dL (1.8-2.4); TOTAL BILIRUBIN 0.4 mg/dL (0.0-1.0); TOTAL PROTEIN, SERUM 6.7 g/dL (6.4-8.2)
[2023-08-20 06:03] LABS: POTASSIUM 2.8 mmol/L (3.5-5.1)
[2023-08-20] MEDS: KCL 20 MEQ IN 100 mL PREMIX 100 ML IV ONE (06:48)
[2023-08-20] MEDS ORDERED: NOREPINEPHRINE 16 MG in DEXTROSE 5% 250 ML IV PRN (06:55)
[2023-08-20 07:35] LABS: HEMOGLOBIN 7.4 g/dL (12.0-16.0); MEAN CORPUSCULAR HEMOGLOBIN 24 pg (27-31); MEAN CORPUSCULAR HGB CONC 32 g/dL (33-37); MEAN CORPUSCULAR VOLUME 75.1 fL (80-94); PLATELET COUNT (AUTO) 386 K/uL (140-450); RED BLOOD CELL COUNT(AUTO) 3.06 MIL/uL (4.20-5.40); RED CELL DISTRIBUTION WIDTH 19.4 % (11.6-13.7); WHITE BLOOD COUNT (AUTO) 8.9 K/uL (4.8-10.8)
[2023-08-20 07:50] LABS: BASOPHILS % (MANUAL) 0 % (0-2); BLASTS, MANUAL % 0 % (0-0); EOSINOPHILS % (MANUAL) 0 % (0-4); LYMPHOCYTES % (MANUAL) 10 % (20-46); METAMYELOCYTES % 0 % (0-0); MONOCYTES % (MANUAL) 8 % (5-12); MYELOCYTES % 0 % (0-0); OTHER CELLS,MANUAL % 0 (0-0); PLASMA CELLS 0; PROMYELOCYTES % 0 % (0-0); SMUDGE CELLS 0
[2023-08-20 07:51] LABS: ANISOCYTOSIS 2+; PLATELET ESTIMATE SLIGHTLY INCREASED; TEAR DROP CELLS 1+
[2023-08-20] MEDS: SILVER NITRATE APPLICATOR 1 EA SWAB TP SCH (08:10)
[2023-08-20] MEDS: METOPROLOL 50 MG TAB GT SCH (09:00)
[2023-08-20] MEDS: FENOFIBRATE 48 MG TAB GT SCH (09:00)
[2023-08-20] MEDS: KCL 20 MEQ IN 100 mL PREMIX 100 ML IV SCH (09:19)
[2023-08-20] MEDS: ENOXAPARIN 40 MG/0.4 ML SYR SUBQ SCH (10:07)
[2023-08-20] MEDS: INSULIN LANTUS 100 UNITS/ML 10 ML VIAL SUBQ SCH (10:08)
[2023-08-20] MEDS: VANCOMYCIN 750 MG in DEXTROSE 5% 250 ML IV SCH (15:23)
[2023-08-20] MEDS: MEROPENEM 1,000 MG in NACL 0.9% 50 ML IV SCH (20:30)
[2023-08-20] MEDS: levETIRAcetam 1,500 MG in NACL 0.9% 100 ML IV SCH (20:30)
[2023-08-20] MEDS: MEDS-TO-BEDS MC SCH (20:35)
[2023-08-20] MEDS ORDERED: levETIRAcetam 500 MG in NACL 0.9% 100 ML IV SCH (21:00)
[2023-08-21] VITALS (24 sets, daily range): BP systolic 100–134; BP diastolic 48–95; PULSE 83–116; RESP 14–35; TEMP 97.1–97.5; O2SAT 97–100
[2023-08-21 09:17] LABS: BASOPHILS % (AUTO) 0.5 % (0.0-2.0); EOSINOPHILS # (AUTO) 0.1 K/uL (0-0.4); EOSINOPHILS % (AUTO) 1.2 % (0.0-4.0); HEMATOCRIT 20.5 % (36-48); LYMPHOCYTES # (AUTO) 0.7 K/uL (2.5-16.5); LYMPHOCYTES % (AUTO) 14.6 % (20.5-51.1); MEAN CORPUSCULAR HEMOGLOBIN 24 pg (27-31); MEAN CORPUSCULAR HGB CONC 32 g/dL (33-37); MEAN CORPUSCULAR VOLUME 73.2 fL (80-94); MONOCYTES # (AUTO) 0.8 K/uL (0.8-1.0); MONOCYTES % (AUTO) 14.9 % (1.7-9.3); NEUTROPHILS # (AUTO) 3.5 K/uL (1.8-7.7); NEUTROPHILS % (AUTO) 68.8 % (42.2-75.2); PLATELET COUNT (AUTO) 391 K/uL (140-450); RED CELL DISTRIBUTION WIDTH 18.9 % (11.6-13.7); WHITE BLOOD COUNT (AUTO) 5.1 K/uL (4.8-10.8)
[2023-08-21 09:46] LABS: CALCIUM 8.5 mg/dL (8.5-10.1); CARBON DIOXIDE 21.2 mmol/L (21-32); CREATININE 0.7 mg/dL (0.6-1.3); POTASSIUM 3.2 mmol/L (3.5-5.1)
[2023-08-21 10:38] LABS: HEMOGLOBIN 6.6 g/dL (12.0-16.0)
[2023-08-21] MEDS ORDERED: Z-GUARD PASTE TP PRN (12:40)
[2023-08-21] MEDS ORDERED: ALGINATE ROPE MC PRN (12:40)
[2023-08-21] MEDS ORDERED: HYDRAGUARD CREAM TP PRN (12:40)
[2023-08-21] MEDS ORDERED: NYSTATIN POW 100 MU/GM 15 GM BTL TP PRN (12:40)
[2023-08-21] MEDS: HYDRAGUARD CREAM TP SCH (12:56)
[2023-08-21] MEDS: Z-GUARD PASTE TP SCH (12:57)
[2023-08-21] MEDS: ALGINATE ROPE MC SCH (13:08)
[2023-08-21] MEDS: KCL 20 MEQ IN 100 mL PREMIX 200 ML IV SCH (14:00)
[2023-08-21] MEDS: NYSTATIN POW 100 MU/GM 15 GM BTL TP SCH (15:07)
[2023-08-21] MEDS ORDERED: DEXTROSE 50% 50 ML SYR IVP PRN (17:45)
[2023-08-21] MEDS: DEXTROSE 50% 50 ML SYR IVP ONE (18:22)
[2023-08-22] VITALS (18 sets, daily range): BP systolic 85–129; BP diastolic 42–81; PULSE 92–113; RESP 18–25; TEMP 97.5–97.8; O2SAT 92–100
[2023-08-22 00:26] LABS: HEMATOCRIT 32.5 % (36-48); HEMOGLOBIN 10.8 g/dL (12.0-16.0)
[2023-08-22 06:12] LABS: ALBUMIN 1.5 g/dL (3.4-5.0); ANION GAP 15.3 (8-16); CALCIUM 8.5 mg/dL (8.5-10.1); CARBON DIOXIDE 20.2 mmol/L (21-32); POTASSIUM 3.5 mmol/L (3.5-5.1); TOTAL BILIRUBIN 0.4 mg/dL (0.0-1.0); TOTAL PROTEIN, SERUM 3.9 g/dL (6.4-8.2)
[2023-08-22 06:29] LABS: BASOPHILS % (AUTO) 0.9 % (0.0-2.0); EOSINOPHILS # (AUTO) 0.1 K/uL (0-0.4); EOSINOPHILS % (AUTO) 2.3 % (0.0-4.0); HEMATOCRIT 31.9 % (36-48); HEMOGLOBIN 10.5 g/dL (12.0-16.0); LYMPHOCYTES # (AUTO) 0.7 K/uL (2.5-16.5); LYMPHOCYTES % (AUTO) 13.4 % (20.5-51.1); MEAN CORPUSCULAR HEMOGLOBIN 25 pg (27-31); MEAN CORPUSCULAR HGB CONC 33 g/dL (33-37); MEAN CORPUSCULAR VOLUME 77.2 fL (80-94); MONOCYTES # (AUTO) 0.7 K/uL (0.8-1.0); MONOCYTES % (AUTO) 14.5 % (1.7-9.3); NEUTROPHILS # (AUTO) 3.4 K/uL (1.8-7.7); NEUTROPHILS % (AUTO) 68.9 % (42.2-75.2); PLATELET COUNT (AUTO) 382 K/uL (140-450); RED BLOOD CELL COUNT(AUTO) 4.13 MIL/uL (4.20-5.40)
[2023-08-22 06:47] LABS: CREATININE 0.6 mg/dL (0.6-1.3)
[2023-08-23] VITALS (12 sets, daily range): BP systolic 119–140; BP diastolic 73–84; PULSE 84–112; RESP 18–25; TEMP 96.7–98.1; O2SAT 94–100
[2023-08-23] MEDS: cefTAZidime 2,000 MG in DEXTROSE 5% 100 ML IV SCH (05:00)
[2023-08-23 07:36] LABS: ALBUMIN 1.5 g/dL (3.4-5.0); ANION GAP 13.7 (8-16); CALCIUM 8.3 mg/dL (8.5-10.1); CARBON DIOXIDE 20.7 mmol/L (21-32); CREATININE 0.7 mg/dL (0.6-1.3); POTASSIUM 3.4 mmol/L (3.5-5.1); TOTAL BILIRUBIN 0.3 mg/dL (0.0-1.0); TOTAL PROTEIN, SERUM 6.1 g/dL (6.4-8.2)
[2023-08-23 07:57] LABS: HEMATOCRIT 30.1 % (36-48); MEAN CORPUSCULAR HEMOGLOBIN 26 pg (27-31); MEAN CORPUSCULAR HGB CONC 33 g/dL (33-37); PLATELET COUNT (AUTO) 395 K/uL (140-450); RED BLOOD CELL COUNT(AUTO) 3.91 MIL/uL (4.20-5.40); RED CELL DISTRIBUTION WIDTH 18.9 % (11.6-13.7); WHITE BLOOD COUNT (AUTO) 5.5 K/uL (4.8-10.8)
[2023-08-23 08:57] LABS: BASOPHILS % (MANUAL) 0 % (0-2); BLASTS, MANUAL % 0 % (0-0); EOSINOPHILS % (MANUAL) 0 % (0-4); LYMPHOCYTES % (MANUAL) 23 % (20-46); METAMYELOCYTES % 1 % (0-0); MONOCYTES % (MANUAL) 8 % (5-12); MYELOCYTES % 0 % (0-0); OTHER CELLS,MANUAL % 0 (0-0); PLASMA CELLS 0; PROMYELOCYTES % 0 % (0-0); SMUDGE CELLS 0
[2023-08-23 08:58] LABS: ANISOCYTOSIS 1+; PLATELET ESTIMATE SLIGHTLY INCREASED; POLYCHROMASIA 1+
[2023-08-23] MEDS ORDERED: [UNRECOGNIZED DRUG - CODE] IV (14:40)
[2023-08-23] MEDS: POTASSIUM CHLORIDE 20% 40 MEQ/15 ML UDC GT SCH (16:59)
== END 2023-08-23 19:09 | DRG 720 ==
LOC: MED 14:27 → MIC 17:10 → MTU 08-22 16:20
PROVIDERS: ADMIT Internal Medicine; ATTEND Internal Medicine
PROC: 5A1945Z Respiratory Ventilation, 24-96 Consecutive Hours (ICD-10-PCS; principal; 2023-08-19)
PROC: 02HV33Z Insertion of Infusion Device into Superior Vena Cava, Percutaneous Approach (ICD-10-PCS; 2023-08-19)
PROC: 30233N1 Transfusion of Nonautologous Red Blood Cells into Peripheral Vein, Percutaneous Approach (ICD-10-PCS; 2023-08-21)
DX: A41.9 Sepsis, unspecified organism (principal); J95.851 Ventilator associated pneumonia; G82.50 Quadriplegia, unspecified; E43 Unspecified severe protein-calorie malnutrition; J96.10 Chronic respiratory failure, unspecified whether with hypoxia or hypercapnia; K94.22 Gastrostomy infection; N13.6 Pyonephrosis; E87.1 Hypo-osmolality and hyponatremia; I48.91 Unspecified atrial fibrillation; K94.23 Gastrostomy malfunction; G40.909 Epilepsy, unspecified, not intractable, without status epilepticus; E11.9 Type 2 diabetes mellitus without complications; E78.5 Hyperlipidemia, unspecified; D64.9 Anemia, unspecified; Z20.822 Contact with and (suspected) exposure to COVID-19; B96.5 Pseudomonas (aeruginosa) (mallei) (pseudomallei) as the cause of diseases classified elsewhere; J40 Bronchitis, not specified as acute or chronic; Z98.2 Presence of cerebrospinal fluid drainage device; Z88.0 Allergy status to penicillin; Z86.19 Personal history of other infectious and parasitic diseases; Z87.442 Personal history of urinary calculi; Z68.28 Body mass index [BMI] 28.0-28.9, adult
CPT/HCPCS: 36415; 36430; 71045; 80048; 80053; 80202; 81001; 82948; 83605; 83735; 83880; 84484; 85018; 85025; 86886; 86900; 86901; 86920; 87040; 87070; 87075; 87081; 87086; 87186; 87205; 89220; 93005; 94002; 94003; 94640; 96365; 96367; 99285; J0456; J0713; J1650; J1815; J1953; J2185; J3370; J3480; J3490; J7060; J7613; P9016

== ENCOUNTER 2023-09-02 09:04 | Emergency (ER) | payer OTHER ==
[~2023-09-02] VITALS: Ht 157.5 cm; Wt 77.1 kg
[~2023-09-02 09:04] MED LIST changes: +ALBU0.0912 IH; +ALBU0.0912 INH; +ARGI4.5P3 GT; +ASCO-518 GT; +ATRMDI IH; -CALC-105 PO; +CALC-575 GT; +CALC1TAB72 GT; -CALC1TAB72 PO; +CHLO473S62 PO; -DOCU-2 PO; +DOCU-299 GT; -EPOE10004 IJ; +EPOE10004 SQ; +HUM SUBQ; +IPRA12.9 INH; -KEP500L PO; -LACT100C5 PO; +MEDI30SO GT; +MELA3TER GT; -MELA3TER PO; +METF-1243 GT; -METF-346 PO; -METO-251 PO; +METO50TA21 GT; -MULT-2246 PO; +MULT-2308 GT; +NUTR887L11 GT; +ZINC220T3 GT; +[UNRECOGNIZED DRUG - CODE] GT; -[UNRECOGNIZED DRUG - CODE] IM; +[UNRECOGNIZED DRUG - CODE] IV; -[UNRECOGNIZED DRUG - CODE] IV
[2023-09-02 09:13] VITALS: BP 136/72; PULSE 102; RESP 20; TEMP 97.3; O2SAT 97
[2023-09-02 09:20] VITALS: PULSE 93; O2SAT 100
[2023-09-02] MEDS ORDERED: SULF-59 GT (12:16)
[2023-09-02 13:57] VITALS: BP 124/77; RESP 16; TEMP 97.6
[2023-09-02 13:59] VITALS: PULSE 86; O2SAT 100; O2SAT 97
== END 2023-09-02 14:34 | disposition home or self-care (01) ==
LOC: MED 09:04
DX: K94.23 Gastrostomy malfunction (principal); J44.9 Chronic obstructive pulmonary disease, unspecified; Z86.73 Personal history of transient ischemic attack (TIA), and cerebral infarction without residual deficits; E11.9 Type 2 diabetes mellitus without complications; Z79.1 Long term (current) use of non-steroidal anti-inflammatories (NSAID); Z79.2 Long term (current) use of antibiotics; Z79.899 Other long term (current) drug therapy; Z79.4 Long term (current) use of insulin; Z79.84 Long term (current) use of oral hypoglycemic drugs; Z88.0 Allergy status to penicillin; Z88.5 Allergy status to narcotic agent; Z88.1 Allergy status to other antibiotic agents
CPT/HCPCS: 43762; 99284